=== PATIENT | male | born 1945 | race Hispanic/Latino ===

== ENCOUNTER 2019-02-02 01:32 | Inpatient (IN) | payer MEDICARE, OTHER ==
[2019-02-02 03:19] VITALS: BMI 22.8
[2019-02-02] MEDS ORDERED: Dextrose 5%/0.45% NS 1,000 ML IV SCH (03:30)
[2019-02-02] MEDS ORDERED: Heparin25000 units/250ml 1/2NS 25,000 UNITS/250 ML BAG IV ONE ×2 (04:04→07:45)
[2019-02-02 06:31] LABS: BASO # 0.1 K/uL (0.0-0.2); BASO % 0.4 % (0.0-2.0); EOS # 0.1 K/uL (0.0-0.7); EOS % 1.1 % (0.0-4.0); HEMOGLOBIN 9.1 g/dL (12.0-18.0); LYMPH # 1.3 K/uL (1.0-4.3); LYMPH % 10.2 % (20.0-40.0); MEAN CELL VOLUME 84.4 fL (80.0-94.0); MEAN CORPUSCULAR HEMOGLOBIN 26.8 pg (27.0-31.0); MEAN CORPUSCULAR HGB CONC 31.8 g/dL (33.0-37.0); MEAN PLATELET VOLUME 8.6 fL (7.2-11.7); MONO # 0.9 K/uL (0.0-0.8); MONO % 6.9 % (0.0-10.0); NEUT # 10.3 K/uL (1.8-7.0); NEUT % 81.4 % (50.0-75.0); NRBC % 0.1 % (0.0-2.0); RBC 3.4 Mil/uL (4.40-5.90); RED CELL DISTRIBUTION WIDTH 20.8 % (11.5-14.5); WHITE BLOOD COUNT 12.7 K/uL (4.8-10.8)
[2019-02-02 06:37] LABS: INR 1.8; PROTHROMBIN TIME 19.3 SECONDS (9.7-12.2)
[2019-02-02 06:41] LABS: ALBUMIN 3.3 g/dL (3.5-5.0); ALT/SGPT 33 U/L (21-72); AST/SGOT 27 U/L (17-59); BLOOD UREA NITROGEN 19 mg/dL (9-20); CALCIUM 8.4 mg/dl (8.6-10.4); GFR NON-AFRICAN AMERICAN > 60
--- NOTE | 2019-02-02 06:41 | CP.PCM.HP ---
<Brittney Little - Last Filed: 02/02/19 08:05> History of Present Illness - History of Present Illness History of Present Illness: Hepatobiliary surgery - Dr. Fernandez 73 yo M w/ pmh of HTN, HL, COPD, GERD, CAD, Cardiomyopathy, Chronic AFib on Coumadin, CABG, AICD/PM, Alcoholic Liver Cirrhosis, transferred from [facility] for possible hepatic shunt. Patient was recently admitted to [facility] for decompensated liver failure and acute toxic metabolic encephalopathy w/ septic shock with concerns for SBP. He was treated there in the ICU and underwent multiple paracentesis with no growth. He improved clinically and was transferred to the telemetry floor. While at [facility] pt was reportedly seen by GI and Cardiology who evauated patient and deemed him not a candidate for TIPs procedure. Hepatobiliary surgeon was contacted and decision made to transfer patient to [facility] for possible pauline-systemic shunt. Patient seen and examined on the floor. He currently complains of abdominal distension and mild pain, otherwise denies any complaints at this time. No SOB/Chest pain, Nausea/Vomiting, Fevers/Chills. PMH: HTN, HL, Asthma, COPD, GERD, Cardiomyopathy, CAD, Chronic AFib on Coumadin, Alcoholic cirrhosis, Hypothyroid, PSH: CABG 2014, Open Cholecystectomy, Umbilical hernia repair, AICD/Pacemaker 2014, Cardiac cath 09/2018 Social:Hx of ETOH and Tobacco use Meds as per chart NKDA Present on Admission - Present on Admission Any Indicators Present on Admission: No Review of Systems - Review of Systems All systems: reviewed and no additional remarkable complaints except (as per HPI) Past Patient History - Infectious Disease Hx of Infectious Diseases: None Meds Allergies/Adverse Reactions: Allergies Allergy/AdvReac Type Severity Reaction Status Date / Time No Known Allergies Allergy Verified 02/02/19 03:19 Physical Exam - Constitutional Appears: No Acute Distress - Head Exam Head Exam: ATRAUMATIC, NORMAL INSPECTION, NORMOCEPHALIC - Eye Exam Eye Exam: Normal appearance - ENT Exam ENT Exam: Mucous Membranes Dry - Respiratory Exam Respiratory Exam: NORMAL BREATHING PATTERN. absent: Respiratory Distress - Cardiovascular Exam Cardiovascular Exam: REGULAR RHYTHM - GI/Abdominal Exam GI & Abdominal Exam: Distended, Soft, Tenderness (mild). absent: Firm, Guarding, Hernia, Rebound, Rigid - Neurological Exam Neurological exam: Alert, Oriented x3 - Psychiatric Exam Psychiatric exam: Normal Affect, Normal Mood - Skin Skin Exam: Dry, Intact Results - Vital Signs Recent Vital Signs: Last Vital Signs Temp 97.5 F L 02/02/19 01:35 Pulse 61 02/02/19 01:35 Resp 20 02/02/19 01:35 BP 110/53 L 02/02/19 01:35 Pulse Ox 97 02/02/19 01:35 - Labs Result Diagrams: 02/02/19 06:25 02/02/19 06:25 Assessment & Plan - Assessment and Plan (Free Text) Assessment: 73 yo M w/ alcoholic liver cirrhosis, admitted for possible shunt -admit to [facility] surgeon Dr. Fernandez -Resume home medications except for Warfarin -Resume Heparin drip -F/U Labs -Further reccs as per Dr. Patel PGY4 <Haroldo Fernandez - Last Filed: 02/08/19 10:14> Results - Vital Signs Recent Vital Signs: Last Vital Signs Temp 97.5 F L 02/04/19 07:00 Pulse 63 02/04/19 11:32 Resp 18 02/04/19 07:00 BP 112/61 02/04/19 11:18 Pulse Ox 99 02/04/19 11:32 - Labs Result Diagrams: 02/08/19 07:59 02/07/19 07:55 Labs: Laboratory Results - last 24 hr 02/03/19 02/04/19 02/04/19 15:48 06:22 06:22 WBC 12.9 H RBC 3.49 L Hgb 9.2 L Hct 29.7 L MCV 85.0 MCH 26.3 L MCHC 31.0 L RDW 21.0 H Plt Count 220 MPV 8.7 Neut % (Auto) 80.0 H Lymph % (Auto) 9.9 L Norton % (Auto) 7.6 Eos % (Auto) 1.7 Baso % (Auto) 0.8 Neut # (Auto) 10.3 H Lymph # (Auto) 1.3 Norton # (Auto) 1.0 H Eos # (Auto) 0.2 Baso # (Auto) 0.1 Neutrophils % (Manual) 86 H Band Neutrophils % 1 Lymphocytes % (Manual) 6 L Monocytes % (Manual) 4 Eosinophils % (Manual) 3 Platelet Estimate Normal Hypochromasia (manual) Slight Anisocytosis (manual) Moderate PT 13.2 H D INR 1.2 D APTT 46 H D 51 H D Sodium Potassium Chloride Carbon Dioxide Anion Gap BUN Creatinine Est GFR ( Amer) Est GFR (Non-Af Amer) Random Glucose Calcium Phosphorus Magnesium Total Bilirubin AST ALT Alkaline Phosphatase Total Protein Albumin Globulin Albumin/Globulin Ratio 02/04/19 06:22 WBC RBC Hgb Hct MCV MCH MCHC RDW Plt Count MPV Neut % (Auto) Lymph % (Auto) Norton % (Auto) Eos % (Auto) Baso % (Auto) Neut # (Auto) Lymph # (Auto) Norton # (Auto) Eos # (Auto) Baso # (Auto) Neutrophils % (Manual) Band Neutrophils % Lymphocytes % (Manual) Monocytes % (Manual) Eosinophils % (Manual) Platelet Estimate Hypochromasia (manual) Anisocytosis (manual) PT INR APTT Sodium 132 Potassium 5.0 Chloride 93 L Carbon Dioxide 37 H Anion Gap 8 L BUN 25 H Creatinine 0.9 Est GFR ( Amer) > 60 Est GFR (Non-Af Amer) > 60 Random Glucose 74 L Calcium 8.8 Phosphorus 3.6 Magnesium 2.2 Total Bilirubin 0.7 AST 37 ALT 47 Alkaline Phosphatase 63 Total Protein 5.7 L Albumin 3.6 Globulin 2.1 L Albumin/Globulin Ratio 1.7 Assessment & Plan - Assessment and Plan (Free Text) Assessment: All medical record entries made by the resident were at my direction. I have reviewed the chart and agree that the record accurately reflects my personal performance of the history, physical exam, medical decision making. I have also personally examined the patient, reviewed, and agree the resident note. 73 year old male Laennec's cirrhosis with intractable ascites and COPD. Needs repeat echo and abdominal CT to determine if TIPSS safe and feasible. If not, will place peritoneal-venous shunt
[2019-02-02] MEDS: Levothyroxine 50 MCG TAB PO SCH (07:32)
[2019-02-02] MEDS ORDERED: Heparin25000 units/250ml 1/2NS 25,000 UNITS/250 ML BAG IV PRN (08:21)
[2019-02-02] MEDS: Albuterol 0.083% Inhal Sol (2.5 mg/3 mL) UD IH SCH ×5 (08:30→20:47)
--- NOTE | 2019-02-02 12:40 | RAD ---
Date of service: 02/02/2019 PROCEDURE: CHEST RADIOGRAPH, 1 VIEW HISTORY: preop COMPARISON: None available. FINDINGS: LUNGS: Clear. PLEURA: No pneumothorax or pleural fluid seen. CARDIOVASCULAR: No aortic atherosclerotic calcification present. Normal heart size. Status post mitral and aortic valve replacement. Sternotomy wires. AICD. Right IJ multi lumen central venous catheter. OSSEOUS STRUCTURES: No significant abnormalities. VISUALIZED UPPER ABDOMEN: Normal. OTHER FINDINGS: None. IMPRESSION: No acute infiltrate.
[2019-02-02] MEDS: PrednisoLONE 6 MG/2 ML SYR PO SCH ×2 (14:22→15:06)
--- NOTE | 2019-02-02 17:03 | CARD ---
APPROVED REPORT Date of service: 02/02/2019 EXAM: Two-dimensional and M-mode echocardiogram with Doppler and color Doppler. INDICATION Atrial Fibrillation Cardiac Disease: CAD COPD Pre-op Surgery/Intervention Status/Post Aortic Valve Replacement: Status/Post Mitral Valve Replacement: CABG: RISK FACTORS Hypertension Hyperlipidemia 2D DIMENSIONS IVSd0.9 (0.7-1.1cm)LVDd4.2 (3.9-5.9cm) LVOT Diameter2.0 (1.8-2.4cm)PWd1.0 (0.7-1.1cm) LVDs3.5 (2.5-4.0cm)FS (%) 22.0 % LVEF (%)45.0 (>50%)LVEF (Perry's)44.39 % IVC0.00 cm M-Mode DIMENSIONS RVDd1.80 (2.1-3.2cm)Left Atrium (MM)4.90 (2.5-4.0cm) IVSd0.49 (0.7-1.1cm)Aortic Root2.47 (2.2-3.7cm) LVDd6.64 (4.0-5.6cm)Aortic Cusp Exc.1.29 (1.5-2.0cm) PWd0.59 (0.7-1.1cm)FS (%) 24 % LVDs5.05 (2.0-3.8cm)LVEF (%)47 (>50%) Aortic Valve AoV Peak Tyejryre724.4cm/sAoV VTI47.3cmAO Peak GR.21mmHg LVOT Peak Qqesqkim264.3cm/sLVOT VTI43.16cmAO Mean GR.10mmHg NEHAL (VMAX)2.85mv4ZBB (VTI)2.92cm2 Mitral Valve MV E Sooaqfas549.1cm/sMV A Vxvstgfg61.2cm/sMV XOB427fv E/A ratio3.0MVA (PHT)1.70cm2 TDI Lateral E' Peak V10.22cm/sMedial E' Peak V9.58cm/sE/Lateral E'19.5 E/Medial E'20.8 Tricuspid Valve TR Peak Cpfswgxd959jr/sTR Peak Gr.91wqOvXUGH35frJn LEFT VENTRICLE The left ventricle is normal size. There is normal left ventricular wall thickness. Left ventricle systolic function is borderline. The Ejection Fraction is 45-50%. There is mild global hypokinesis of the left ventricle. There is a flattened septum consistent with right ventricle volume overload. The left ventricular diastolic function is normal. RIGHT VENTRICLE The right ventricle is normal size. There is normal right ventricular wall thickness. Systolic function is mildly reduced. Right Ventricular septal motion is paradoxical. There is a pacemaker lead in the right ventricle. ATRIA The left atrium is mildly dilated. The right atrium size is normal. The interatrial septum is intact with no evidence for an atrial septal defect. AORTIC VALVE No aortic regurgitation is present. There is no aortic valvular stenosis. There are normal prosthetic aortic valve gradients. Aortic valve opening cannot be assessed due to imaging artifacts from the prosthesis. MITRAL VALVE Calculated prosthetic mitral valve area is 1.72 cm2. There is no mitral valve regurgitation noted. The prosthetic mitral valve is not well visualized due to imaging artifacts from the prosthesis. TRICUSPID VALVE The tricuspid valve is normal in structure. There is mild tricuspid regurgitation. Right ventricular systolic pressure is estimated at 40-50 mmHg. There is mild-moderate pulmonary hypertension. PULMONIC VALVE The pulmonic valve is not well visualized. There is no pulmonic valvular regurgitation. GREAT VESSELS The aortic root is normal in size. PERICARDIAL EFFUSION There is no significant pericardial effusion. <Conclusion> Left ventricle systolic function is borderline. The Ejection Fraction is 45-50%. There are normal prosthetic aortic valve gradients. Aortic valve opening cannot be assessed due to imaging artifacts from the prosthesis. No aortic regurgitation is present. The prosthetic mitral valve is not well visualized due to imaging artifacts from the prosthesis. There is no mitral valve regurgitation noted. There is mild tricuspid regurgitation. There is a pacemaker lead in the right ventricle. There is mild-moderate pulmonary hypertension. There is no pulmonic valvular regurgitation.
[2019-02-03] MEDS: Albumin Human 25% (12.5 gm/50 ml) IV SCH ×4 (00:05→17:22)
[2019-02-03] MEDS: Albuterol 0.083% Inhal Sol (2.5 mg/3 mL) UD IH SCH ×7 (00:11→23:39)
[2019-02-03] MEDS: Levothyroxine 50 MCG TAB PO SCH (06:16)
--- NOTE | 2019-02-03 08:19 | CP.PCM.PN ---
<Nii Centeno - Last Filed: 02/03/19 08:19> Subjective - Date & Time of Evaluation Date of Evaluation: 02/03/19 Time of Evaluation: 08:17 - Subjective Subjective: SURGERY NOTE FOR DR. WHIPPLE 73M seen and examined at bedside. Patient states he is pain is improved, denies nausea or vomiting. Tolerating diet. Objective - Vital Signs/Intake and Output Vital Signs (last 24 hours): Temp Pulse Resp BP Pulse Ox 97.3 F L 66 20 116/60 96 02/02/19 23:20 02/03/19 08:00 02/02/19 23:20 02/02/19 23:20 02/02/19 23:20 - Medications Medications: Current Medications Albumin Human (Albumin Human 25% (12.5 Gm/50 Ml)) 25 gm IV Q6 [facility] Stop: 02/03/19 18:01 Last Admin: 02/03/19 05:45 Dose: 25 gm Albuterol Sulfate (Albuterol 0.083% Inhal Otilia (2.5 Mg/3 Ml) Ud) 2.5 mg IH RQ4 [facility] Last Admin: 02/03/19 03:19 Dose: 2.5 mg Furosemide (Lasix) 80 mg PO DAILY [facility] Heparin Sodium/Sodium Chloride (Heparin 02810 Units/250ml 1/2 Normal Saline) 25,000 units in 250 mls @ 8.165 mls/hr IV .Q24H PRN; Protocol PRN Reason: ADJUST RATE PER PROTOCOL Last Admin: 02/02/19 09:36 Dose: 12 units/kg/hr, 8.165 mls/hr Lactulose (Enulose) 30 gm PO TID [facility] Last Admin: 02/02/19 17:33 Dose: 30 gm Levothyroxine Sodium (Synthroid) 50 mcg PO DAILY@0630 [facility] Last Admin: 02/03/19 06:16 Dose: 50 mcg Midodrine (Proamatine) 2.5 mg PO Q8 PRN PRN Reason: SBP 90 or less Prednisolone (Prednisolone) 10 mg PO DAILY [facility] Rifaximin (Xifaxan) 550 mg PO Q8 [facility]; Protocol Last Admin: 02/03/19 06:54 Dose: 550 mg Spironolactone (Aldactone) 50 mg PO QD7 [facility] Tramadol HCl (Ultram) 50 mg PO Q6 PRN PRN Reason: pain Last Admin: 02/03/19 05:46 Dose: 50 mg Zolpidem Tartrate (Ambien) 5 mg PO HS PRN PRN Reason: Insomnia Last Admin: 02/03/19 00:25 Dose: 5 mg - Labs Labs: 02/02/19 06:25 02/02/19 06:25 PT 19.3 SECONDS (9.7-12.2) H 02/02/19 06:25 INR 1.8 02/02/19 06:25 APTT 49 SECONDS (21-34) H 02/02/19 21:26 - Constitutional Appears: Non-toxic, No Acute Distress - Respiratory Exam Respiratory Exam: Clear to Ausculation Bilateral, NORMAL BREATHING PATTERN - Cardiovascular Exam Cardiovascular Exam: REGULAR RHYTHM, +S1, +S2 - GI/Abdominal Exam GI & Abdominal Exam: Distended (dull to percussion), Soft, Tenderness. absent: Firm, Guarding, Rigid, Rebound - Extremities Exam Extremities Exam: absent: Pedal Edema, Tenderness - Neurological Exam Neurological Exam: Alert, Awake - Skin Skin Exam: Dry, Intact, Normal Color, Warm Assessment and Plan - Assessment and Plan (Free Text) Assessment: 73M with alcohol liver cirrhosis Plan: - hep drip - reg diet - Liver protocol CT Further recs discuss with Dr. Jim Centeno, PGY3 <Haroldo Whipple - Last Filed: 02/08/19 10:20> Objective - Vital Signs/Intake and Output Vital Signs (last 24 hours): Temp Pulse Resp BP Pulse Ox 97.5 F L 63 18 112/61 99 02/04/19 07:00 02/04/19 11:32 02/04/19 07:00 02/04/19 11:18 02/04/19 11:32 Intake and Output: 02/04/19 02/04/19 06:59 18:59 Intake Total 376 Balance 376 - Medications Medications: Current Medications Albuterol Sulfate (Albuterol 0.083% Inhal Otilia (2.5 Mg/3 Ml) Ud) 2.5 mg IH RQ4 [facility] Last Admin: 02/04/19 12:25 Dose: 2.5 mg Furosemide (Lasix) 80 mg PO DAILY [facility] Last Admin: 02/04/19 11:18 Dose: 80 mg Heparin Sodium/Sodium Chloride (Heparin 10060 Units/250ml 1/2 Normal Saline) 25,000 units in 250 mls @ 9.525 mls/hr IV .Q24H PRN; Protocol PRN Reason: ADJUST RATE PER PROTOCOL Last Admin: 02/03/19 18:26 Dose: 14 units/kg/hr, 9.525 mls/hr Lactulose (Enulose) 30 gm PO TID [facility] Last Admin: 02/04/19 14:36 Dose: 30 gm Levothyroxine Sodium (Synthroid) 50 mcg PO DAILY@0630 [facility] Last Admin: 02/04/19 06:25 Dose: 50 mcg Midodrine (Proamatine) 2.5 mg PO Q8 PRN PRN Reason: SBP 90 or less Prednisolone (Prednisolone) 10 mg PO DAILY [facility] Last Admin: 02/04/19 11:17 Dose: 10 mg Rifaximin (Xifaxan) 550 mg PO Q8 [facility]; Protocol Last Admin: 02/04/19 14:37 Dose: 550 mg Spironolactone (Aldactone) 50 mg PO QD7 [facility] Tramadol HCl (Ultram) 50 mg PO Q6 PRN PRN Reason: pain Last Admin: 02/03/19 05:46 Dose: 50 mg Zolpidem Tartrate (Ambien) 5 mg PO HS PRN PRN Reason: Insomnia Last Admin: 02/03/19 00:25 Dose: 5 mg - Labs Labs: 02/04/19 06:22 02/04/19 06:22 PT 13.2 SECONDS (9.7-12.2) H D 02/04/19 06:22 INR 1.2 D 02/04/19 06:22 APTT 51 SECONDS (21-34) H D 02/04/19 06:22 Assessment and Plan - Assessment and Plan (Free Text) Plan: All medical record entries made by the resident were at my direction and personally directed by me. I have reviewed the chart and agree that the record accurately reflects my personal performance of the history, physical exam, medical decision making. I have also personally directed, reviewed, and agree with the resident note. Awaits multiphase CT, lacix 80 mg/spironolactone 50 mg daily. Echo done, will have cardiology see patient. Will need to determine whether he will tolerate a TIPS
[2019-02-03] MEDS: Heparin25000 units/250ml 1/2NS 25,000 UNITS/250 ML BAG IV PRN ×2 (09:57→18:26)
[2019-02-03] MEDS: PrednisoLONE 6 MG/2 ML SYR PO SCH (09:57)
[2019-02-04] MEDS: Albuterol 0.083% Inhal Sol (2.5 mg/3 mL) UD IH SCH ×6 (03:13→23:41)
[2019-02-04] MEDS: Levothyroxine 50 MCG TAB PO SCH (06:25)
[2019-02-04 06:44] LABS: INR 1.2; PROTHROMBIN TIME 13.2 SECONDS (9.7-12.2)
[2019-02-04 06:46] LABS: ALB/GLOB RATIO 1.7 (1.0-2.1); ALBUMIN 3.6 g/dL (3.5-5.0); ALT/SGPT 47 U/L (21-72); AST/SGOT 37 U/L (17-59); BASO # 0.1 K/uL (0.0-0.2); BASO % 0.8 % (0.0-2.0); BLOOD UREA NITROGEN 25 mg/dL (9-20); CALCIUM 8.8 mg/dl (8.6-10.4); EOS # 0.2 K/uL (0.0-0.7); EOS % 1.7 % (0.0-4.0); GFR NON-AFRICAN AMERICAN > 60; HEMOGLOBIN 9.2 g/dL (12.0-18.0); LYMPH # 1.3 K/uL (1.0-4.3); LYMPH % 9.9 % (20.0-40.0); MEAN CORPUSCULAR HEMOGLOBIN 26.3 pg (27.0-31.0); MEAN PLATELET VOLUME 8.7 fL (7.2-11.7); MONO % 7.6 % (0.0-10.0); NEUT # 10.3 K/uL (1.8-7.0); PLATELET COUNT 220 K/uL (130-400); RBC 3.49 Mil/uL (4.40-5.90); WHITE BLOOD COUNT 12.9 K/uL (4.8-10.8)
[2019-02-04] MEDS ORDERED: Iohexol 350mg/ml 100 ML ONE (08:39)
[2019-02-04 09:57] LABS: ANISOCYTOSIS MODERATE; BANDS 1 % (0-2); EOSINOPHIL 3 % (0-4); HYPOCHROMIC SLIGHT; LYMPHOCYTE 6 % (20-40); MONOCYTE 4 % (0-10); NEUTROPHIL 86 % (50-75); PLATELET ESTIMATE NORMAL (NORMAL); TOTAL CELLS COUNTED 100
[2019-02-04] MEDS ORDERED: Pneumococcal 23-Valent Vaccine IM ONE (10:00)
[2019-02-04] MEDS ORDERED: Influenza Vaccine 60 mcg/0.5 mL SYR (4YR UP) IM ONE (10:00)
--- NOTE | 2019-02-04 10:35 | CP.PCM.PN ---
<Brittney Little - Last Filed: 02/04/19 10:35> Subjective - Date & Time of Evaluation Date of Evaluation: 02/04/19 Time of Evaluation: 10:34 - Subjective Subjective: Pt seen and examined. No acute events overnight. Pt resting comfortably, still complaining of abdominal pain and just overall not feeling well. He denies any nausea or vomiting, fevers or chills, SOB or chest pains. Objective - Vital Signs/Intake and Output Vital Signs (last 24 hours): Temp Pulse Resp BP Pulse Ox 97.5 F L 63 18 112/61 99 02/04/19 07:00 02/04/19 07:00 02/04/19 07:00 02/04/19 07:00 02/04/19 07:00 Intake and Output: 02/04/19 02/04/19 06:59 18:59 Intake Total 376 Balance 376 - Medications Medications: Current Medications Albuterol Sulfate (Albuterol 0.083% Inhal Otilia (2.5 Mg/3 Ml) Ud) 2.5 mg IH RQ4 [facility] Last Admin: 02/04/19 08:29 Dose: 2.5 mg Furosemide (Lasix) 80 mg PO DAILY [facility] Last Admin: 02/03/19 09:06 Dose: 80 mg Heparin Sodium/Sodium Chloride (Heparin 62894 Units/250ml 1/2 Normal Saline) 25,000 units in 250 mls @ 9.525 mls/hr IV .Q24H PRN; Protocol PRN Reason: ADJUST RATE PER PROTOCOL Last Admin: 02/03/19 18:26 Dose: 14 units/kg/hr, 9.525 mls/hr Lactulose (Enulose) 30 gm PO TID [facility] Last Admin: 02/03/19 17:21 Dose: Not Given Levothyroxine Sodium (Synthroid) 50 mcg PO DAILY@0630 [facility] Last Admin: 02/04/19 06:25 Dose: 50 mcg Midodrine (Proamatine) 2.5 mg PO Q8 PRN PRN Reason: SBP 90 or less Prednisolone (Prednisolone) 10 mg PO DAILY [facility] Last Admin: 02/03/19 09:57 Dose: 10 mg Rifaximin (Xifaxan) 550 mg PO Q8 [facility]; Protocol Last Admin: 02/04/19 06:24 Dose: 550 mg Spironolactone (Aldactone) 50 mg PO QD7 [facility] Tramadol HCl (Ultram) 50 mg PO Q6 PRN PRN Reason: pain Last Admin: 02/03/19 05:46 Dose: 50 mg Zolpidem Tartrate (Ambien) 5 mg PO HS PRN PRN Reason: Insomnia Last Admin: 02/03/19 00:25 Dose: 5 mg - Labs Labs: 02/04/19 06:22 02/04/19 06:22 PT 13.2 SECONDS (9.7-12.2) H D 02/04/19 06:22 INR 1.2 D 02/04/19 06:22 APTT 51 SECONDS (21-34) H D 02/04/19 06:22 - Constitutional Appears: No Acute Distress - Head Exam Head Exam: ATRAUMATIC, NORMAL INSPECTION, NORMOCEPHALIC - Respiratory Exam Respiratory Exam: NORMAL BREATHING PATTERN. absent: Respiratory Distress - GI/Abdominal Exam GI & Abdominal Exam: Distended, Soft. absent: Guarding, Rigid, Tenderness, Rebound - Neurological Exam Neurological Exam: Alert, Oriented x3 - Psychiatric Exam Psychiatric exam: Normal Affect, Normal Mood - Skin Skin Exam: Dry, Intact Assessment and Plan - Assessment and Plan (Free Text) Assessment: 73M with alcohol liver cirrhosis Plan: - Cont hep drip - Cont reg diet - F/U Liver protocol CT Further recs as per Dr. Jim Little PGY4 <Haroldo Fernandez - Last Filed: 02/08/19 10:25> Objective - Vital Signs/Intake and Output Vital Signs (last 24 hours): Temp Pulse Resp BP Pulse Ox 97.5 F L 63 18 112/61 99 02/04/19 07:00 02/04/19 11:32 02/04/19 07:00 02/04/19 11:18 02/04/19 11:32 Intake and Output: 02/04/19 02/04/19 06:59 18:59 Intake Total 376 Balance 376 - Medications Medications: Current Medications Albuterol Sulfate (Albuterol 0.083% Inhal Otilia (2.5 Mg/3 Ml) Ud) 2.5 mg IH RQ4 [facility] Last Admin: 02/04/19 12:25 Dose: 2.5 mg Furosemide (Lasix) 80 mg PO DAILY [facility] Last Admin: 02/04/19 11:18 Dose: 80 mg Heparin Sodium/Sodium Chloride (Heparin 83210 Units/250ml 1/2 Normal Saline) 25,000 units in 250 mls @ 9.525 mls/hr IV .Q24H PRN; Protocol PRN Reason: ADJUST RATE PER PROTOCOL Last Admin: 02/03/19 18:26 Dose: 14 units/kg/hr, 9.525 mls/hr Lactulose (Enulose) 30 gm PO TID [facility] Last Admin: 02/04/19 14:36 Dose: 30 gm Levothyroxine Sodium (Synthroid) 50 mcg PO DAILY@0630 [facility] Last Admin: 02/04/19 06:25 Dose: 50 mcg Midodrine (Proamatine) 2.5 mg PO Q8 PRN PRN Reason: SBP 90 or less Prednisolone (Prednisolone) 10 mg PO DAILY [facility] Last Admin: 02/04/19 11:17 Dose: 10 mg Rifaximin (Xifaxan) 550 mg PO Q8 [facility]; Protocol Last Admin: 02/04/19 14:37 Dose: 550 mg Spironolactone (Aldactone) 50 mg PO QD7 [facility] Tramadol HCl (Ultram) 50 mg PO Q6 PRN PRN Reason: pain Last Admin: 02/03/19 05:46 Dose: 50 mg Zolpidem Tartrate (Ambien) 5 mg PO HS PRN PRN Reason: Insomnia Last Admin: 02/03/19 00:25 Dose: 5 mg - Labs Labs: 02/04/19 06:22 02/04/19 06:22 PT 13.2 SECONDS (9.7-12.2) H D 02/04/19 06:22 INR 1.2 D 02/04/19 06:22 APTT 51 SECONDS (21-34) H D 02/04/19 06:22 Assessment and Plan - Assessment and Plan (Free Text) Assessment: All medical record entries made by the resident were at my direction and personally directed by me. I have reviewed the chart and agree that the record accurately reflects my personal performance of the history, physical exam, medical decision making. I have also personally directed, reviewed, and agree with the resident note. Pateitn with intractable ascites on diuretics. Being evaluated for TIPSS vs peritoneal venous shunt. Echo ordered. Will have cardiology see patient. Patient on prednisone, will wean. Increase Lacix to 80mg daily, will start spironolactone 50 mg daily. Continue lactulose/xifaxan
[2019-02-04] MEDS: PrednisoLONE 6 MG/2 ML SYR PO SCH (11:17)
--- NOTE | 2019-02-04 18:42 | CT ---
Date of service: 02/04/2019 PROCEDURE: CT Abdomen and Pelvis with and without intravenous contrast HISTORY: cirrhosis, r/o HCC or portal vein thrombosis COMPARISON: None. TECHNIQUE: Axial images of the abdomen were obtained in the pre contrast, portal venous and delayed phases of enhancement. Coronal and sagittal reformats were generated. Contrast dose: 100 mL of Visipaque 320 intravenously. Radiation dose: Total exam DLP = 2158.24 mGy-cm. This CT exam was performed using one or more of the following dose reduction techniques: Automated exposure control, adjustment of the mA and/or kV according to patient size, and/or use of iterative reconstruction technique. FINDINGS: LOWER THORAX: There is 6 millimeter noncalcified nodule at the right lung lower lobe. There is a trace right pleural effusion. The heart is mildly to moderately enlarged. Diffuse thickening of the distal esophagus is noted. LIVER: There is low-attenuation on enhancing lesion at the lower portion of the right liver lobe measures 1.3 centimeter likely benign. No evidence of arterial enhancing mass lesion in the liver to suggest hepatocellular carcinoma. Advanced cirrhotic changes are noted. The portal vein is patent. GALLBLADDER AND BILE DUCTS: Status post cholecystectomy. PANCREAS: Unremarkable. No gross lesion or ductal dilatation. SPLEEN: Splenomegaly is noted. ADRENALS: Unremarkable. No mass. KIDNEYS AND URETERS: Unremarkable. No hydronephrosis. No solid mass. VASCULATURE: Mild aneurysmal dilatation of the distal abdominal aorta measures up to 3.4 centimeter is noted just above the bifurcation. Diffuse atherosclerotic calcifications seen. BOWEL: There is suspicious for pneumatosis at the cecum and ascending colon. [id number] constipation is noted. There is diffuse small bowel wall thickening likely edema due to presents of ascites. No evidence of high-grade bowel obstruction. Colonic diverticulosis are noted. APPENDIX: No evidence of appendicitis. PERITONEUM: Large amount of ascites in the abdomen and pelvis. No evidence of free air. LYMPH NODES: Unremarkable. No enlarged lymph nodes. BLADDER: Unremarkable. REPRODUCTIVE: The prostate and seminal vesicles are unremarkable. BONES: No acute fracture. OTHER FINDINGS: None. IMPRESSION: Advanced cirrhosis with findings suggestive of portal hypertension including scar large ascites splenomegaly and portal systemic collaterals in the upper abdomen. No definite evidence of arterial enhancing mass lesion in the liver to suggest hepatocellular carcinoma. Suspicious for pneumatosis in the cecum and ascending colon. Correlate clinically for possible bowel ischemia. Additional findings as discussed above.
[2019-02-04] MEDS: Heparin25000 units/250ml 1/2NS 25,000 UNITS/250 ML BAG IV PRN (21:39)
--- NOTE | 2019-02-05 | CP.PCM.CON ---
History of Present Illness - History of Present Illness History of Present Illness: 73 M with hx of Cirrhosis consulted for cardiac assessment prior to TIPS will evaluate for Pulmonary HTN Past Patient History - Infectious Disease Hx of Infectious Diseases: None - Past Medical History & Family History Past Medical History?: Yes - Past Social History Smoking Status: Never Smoked - CARDIAC Hx Hypertension: Yes - PULMONARY Hx Chronic Obstructive Pulmonary Disease (COPD): Yes - NEUROLOGICAL Hx Neurological Disorder: No - HEENT Hx HEENT Problems: No - RENAL Hx Chronic Kidney Disease: No - HEMATOLOGICAL/ONCOLOGICAL Hx Blood Disorders: No - INTEGUMENTARY Hx Dermatological Problems: No - MUSCULOSKELETAL/RHEUMATOLOGICAL Hx Musculoskeletal Disorders: No Hx Falls: No - GASTROINTESTINAL Hx Gastrointestinal Disorders: Yes - GENITOURINARY/GYNECOLOGICAL Hx Genitourinary Disorders: No - PSYCHIATRIC Hx Psychophysiologic Disorder: No Meds Allergies/Adverse Reactions: Allergies Allergy/AdvReac Type Severity Reaction Status Date / Time No Known Allergies Allergy Verified 02/02/19 03:19 - Medications Medications: Current Medications Albuterol Sulfate (Albuterol 0.083% Inhal Otilia (2.5 Mg/3 Ml) Ud) 2.5 mg IH RQ4 [facility] Last Admin: 02/04/19 23:41 Dose: 2.5 mg Docusate Sodium (Colace) 100 mg PO BID [facility] Furosemide (Lasix) 80 mg PO DAILY [facility] Last Admin: 02/04/19 11:18 Dose: 80 mg Heparin Sodium/Sodium Chloride (Heparin 43900 Units/250ml 1/2 Normal Saline) 25,000 units in 250 mls @ 9.525 mls/hr IV .Q24H PRN; Protocol PRN Reason: ADJUST RATE PER PROTOCOL Last Admin: 02/04/19 21:39 Dose: 14 units/kg/hr, 9.525 mls/hr Lactulose (Enulose) 30 gm PO TID [facility] Last Admin: 02/04/19 18:35 Dose: 30 gm Levothyroxine Sodium (Synthroid) 50 mcg PO DAILY@0630 [facility] Last Admin: 02/04/19 06:25 Dose: 50 mcg Midodrine (Proamatine) 2.5 mg PO Q8 PRN PRN Reason: SBP 90 or less Prednisolone (Prednisolone) 10 mg PO DAILY [facility] Last Admin: 02/04/19 11:17 Dose: 10 mg Rifaximin (Xifaxan) 550 mg PO Q8 [facility]; Protocol Last Admin: 02/04/19 21:07 Dose: 550 mg Spironolactone (Aldactone) 50 mg PO QD7 [facility] Tramadol HCl (Ultram) 50 mg PO Q6 PRN PRN Reason: pain Last Admin: 02/03/19 05:46 Dose: 50 mg Zolpidem Tartrate (Ambien) 5 mg PO HS [facility] Last Admin: 02/04/19 21:07 Dose: 5 mg Results - Vital Signs Recent Vital Signs: Last Vital Signs Temp 97.7 F 02/04/19 15:40 Pulse 66 02/04/19 16:30 Resp 20 02/04/19 15:40 BP 92/61 L 02/04/19 15:40 Pulse Ox 100 02/04/19 15:40 - Labs Result Diagrams: 02/04/19 06:22 02/04/19 06:22 Labs: Laboratory Results - last 24 hr 02/04/19 02/04/19 02/04/19 06:22 06:22 06:22 WBC 12.9 H RBC 3.49 L Hgb 9.2 L Hct 29.7 L MCV 85.0 MCH 26.3 L MCHC 31.0 L RDW 21.0 H Plt Count 220 MPV 8.7 Neut % (Auto) 80.0 H Lymph % (Auto) 9.9 L [place] % (Auto) 7.6 Eos % (Auto) 1.7 Baso % (Auto) 0.8 Neut # (Auto) 10.3 H Lymph # (Auto) 1.3 [place] # (Auto) 1.0 H Eos # (Auto) 0.2 Baso # (Auto) 0.1 Neutrophils % (Manual) 86 H Band Neutrophils % 1 Lymphocytes % (Manual) 6 L Monocytes % (Manual) 4 Eosinophils % (Manual) 3 Platelet Estimate Normal Hypochromasia (manual) Slight Anisocytosis (manual) Moderate PT 13.2 H D INR 1.2 D APTT 51 H D Sodium 132 Potassium 5.0 Chloride 93 L Carbon Dioxide 37 H Anion Gap 8 L BUN 25 H Creatinine 0.9 Est GFR ( Amer) > 60 Est GFR (Non-Af Amer) > 60 Random Glucose 74 L Calcium 8.8 Phosphorus 3.6 Magnesium 2.2 Total Bilirubin 0.7 AST 37 ALT 47 Alkaline Phosphatase 63 Total Protein 5.7 L Albumin 3.6 Globulin 2.1 L Albumin/Globulin Ratio 1.7
--- NOTE | 2019-02-05 01:32 | CARD ---
APPROVED REPORT Date of service: 02/02/2019 EKG Measurement Heart [id number] <Conclusion> Atrial fibrillation with slow ventricular response Left anterior fascicular block T wave abnormality, consider anterolateral ischemia Abnormal ECG
[2019-02-05] MEDS: Albuterol 0.083% Inhal Sol (2.5 mg/3 mL) UD IH SCH ×6 (03:09→19:53)
[2019-02-05] MEDS: Levothyroxine 50 MCG TAB PO SCH (06:23)
[2019-02-05 07:18] LABS: HEMOGLOBIN 8.6 g/dL (12.0-18.0); MEAN CELL VOLUME 85.6 fL (80.0-94.0); MEAN CORPUSCULAR HEMOGLOBIN 26.6 pg (27.0-31.0); MEAN CORPUSCULAR HGB CONC 31.1 g/dL (33.0-37.0); MEAN PLATELET VOLUME 8.5 fL (7.2-11.7); RBC 3.24 Mil/uL (4.40-5.90); RED CELL DISTRIBUTION WIDTH 20.6 % (11.5-14.5); WHITE BLOOD COUNT 12.3 K/uL (4.8-10.8)
[2019-02-05] MEDS ORDERED: Lidocaine Hydrochloride 5 ML INJ ONE (10:06)
--- NOTE | 2019-02-05 10:46 | CP.PCM.PN ---
<Marleen Starks - Last Filed: 02/05/19 11:29> Subjective - Date & Time of Evaluation Date of Evaluation: 02/05/19 Time of Evaluation: 06:50 - Subjective Subjective: P Surgery Dr. Fernandez Pt seen and examined @bedside. No acute events overnight. Pt has no complaints. pt admits to minor abd discomfort 2/2 ascites. denies F/C, CP, SOB, N/V, D/C. tolerating diet. (+)BM/Flatus Objective - Vital Signs/Intake and Output Vital Signs (last 24 hours): Temp Pulse Resp BP Pulse Ox 97.8 F 66 20 104/59 L 94 L 02/05/19 07:30 02/05/19 07:30 02/05/19 07:30 02/05/19 07:30 02/05/19 07:30 Intake and Output: 02/05/19 02/05/19 06:59 18:59 Intake Total 630 Balance 630 - Medications Medications: Current Medications Albuterol Sulfate (Albuterol 0.083% Inhal Otilia (2.5 Mg/3 Ml) Ud) 2.5 mg IH RQ4 [facility] Last Admin: 02/05/19 08:31 Dose: Not Given Docusate Sodium (Colace) 100 mg PO BID [facility] Furosemide (Lasix) 80 mg PO DAILY [facility] Last Admin: 02/04/19 11:18 Dose: 80 mg Heparin Sodium/Sodium Chloride (Heparin 71518 Units/250ml 1/2 Normal Saline) 25,000 units in 250 mls @ 9.525 mls/hr IV .Q24H PRN; Protocol PRN Reason: ADJUST RATE PER PROTOCOL Last Admin: 02/04/19 21:39 Dose: 14 units/kg/hr, 9.525 mls/hr Lactulose (Enulose) 30 gm PO TID [facility] Last Admin: 02/04/19 18:35 Dose: 30 gm Levothyroxine Sodium (Synthroid) 50 mcg PO DAILY@0630 [facility] Last Admin: 02/05/19 06:23 Dose: 50 mcg Midodrine (Proamatine) 2.5 mg PO Q8 PRN PRN Reason: SBP 90 or less Prednisolone (Prednisolone) 10 mg PO DAILY [facility] Last Admin: 02/04/19 11:17 Dose: 10 mg Rifaximin (Xifaxan) 550 mg PO Q8 [facility]; Protocol Last Admin: 02/05/19 06:23 Dose: 550 mg Spironolactone (Aldactone) 50 mg PO QD7 [facility] Tramadol HCl (Ultram) 50 mg PO Q6 PRN PRN Reason: pain Last Admin: 02/05/19 06:24 Dose: 50 mg Zolpidem Tartrate (Ambien) 5 mg PO HS [facility] Last Admin: 02/04/19 21:07 Dose: 5 mg - Labs Labs: 02/05/19 07:04 02/04/19 06:22 PT 13.2 SECONDS (9.7-12.2) H D 02/04/19 06:22 INR 1.2 D 02/04/19 06:22 APTT 32 SECONDS (21-34) D 02/05/19 07:04 - Constitutional Appears: Non-toxic, No Acute Distress - Head Exam Head Exam: NORMAL INSPECTION - Eye Exam Eye Exam: Normal appearance - ENT Exam ENT Exam: Mucous Membranes Moist - Respiratory Exam Respiratory Exam: NORMAL BREATHING PATTERN. absent: Accessory Muscle Use, Respiratory Distress - Cardiovascular Exam Cardiovascular Exam: Irregular Rhythm. absent: Bradycardia, Tachycardia - GI/Abdominal Exam GI & Abdominal Exam: Distended (ascites), Soft, Tenderness (minimal) - Extremities Exam Extremities Exam: Normal Inspection - Neurological Exam Neurological Exam: Alert, Awake, Oriented x3 - Psychiatric Exam Psychiatric exam: Normal Affect, Normal Mood - Skin Skin Exam: Dry, Intact, Normal Color, Warm Assessment and Plan - Assessment and Plan (Free Text) Assessment: 73 y/o M w/ EtOH liver cirrhosis Plan: - plan for paracentesis today - Cont hep drip 2/2 Afib - Cont reg diet - Plan for OR tomorrow vs later this week for [facility]henry shunt placement - encourage OOb to chair/Amb Further recs as per Dr. Jim Starks DO PGY3 <Haroldo Fernandez - Last Filed: 02/08/19 10:35> Objective - Vital Signs/Intake and Output Vital Signs (last 24 hours): Temp Pulse Resp BP Pulse Ox 98.0 F 67 18 109/68 98 02/08/19 07:00 02/08/19 07:50 02/08/19 07:00 02/08/19 09:49 02/08/19 07:00 Intake and Output: 02/08/19 02/08/19 06:59 18:59 Intake Total 337.2 Balance 337.2 - Medications Medications: Current Medications Docusate Sodium (Colace) 100 mg PO BID [facility] Last Admin: 02/08/19 09:50 Dose: 100 mg Furosemide (Lasix) 80 mg PO DAILY [facility] Last Admin: 02/08/19 09:49 Dose: 80 mg Heparin Sodium/Sodium Chloride (Heparin 33168 Units/250ml 1/2 Normal Saline) 25,000 units in 250 mls @ 10.886 mls/hr IV .[id number] PRN; Protocol PRN Reason: ADJUST RATE PER PROTOCOL Last Admin: 02/08/19 00:30 Dose: 16 units/kg/hr, 10.886 mls/hr Lactulose (Enulose) 30 gm PO TID [facility] Last Admin: 02/08/19 09:50 Dose: Not Given Levothyroxine Sodium (Synthroid) 50 mcg PO DAILY@0630 [facility] Last Admin: 02/08/19 06:32 Dose: 50 mcg Midodrine (Proamatine) 2.5 mg PO Q8 PRN PRN Reason: SBP 90 or less Prednisolone (Prednisolone) 10 mg PO DAILY [facility] Last Admin: 02/08/19 09:51 Dose: 10 mg Rifaximin (Xifaxan) 550 mg PO Q12 [facility]; Protocol Last Admin: 02/08/19 09:51 Dose: 550 mg Spironolactone (Aldactone) 50 mg PO QD7 [facility] Last Admin: 02/08/19 09:49 Dose: 50 mg Tramadol HCl (Ultram) 50 mg PO Q6 PRN PRN Reason: pain Last Admin: 02/07/19 20:49 Dose: 50 mg Zolpidem Tartrate (Ambien) 5 mg PO HS [facility] Last Admin: 02/07/19 21:59 Dose: 5 mg - Labs Labs: 02/08/19 07:59 02/07/19 07:55 PT 11.1 SECONDS (9.7-12.2) 02/07/19 07:55 INR 1.0 02/07/19 07:55 APTT 51 SECONDS (21-34) H D 02/08/19 07:59 Assessment and Plan - Assessment and Plan (Free Text) Plan: All medical record entries made by the resident were at my direction. I have reviewed the chart and agree that the record accurately reflects my personal performance of the history, physical exam, medical decision making. I have also personally examined the patient, reviewed, and agree the resident note.
--- NOTE | 2019-02-05 10:57 | PCM.SURG1 ---
Surgeon's Initial Post Op Note - Surgeon's Notes Surgeon: Carmine Vargas MD Molding Plasterer: NONE Type of Anesthesia: Local Pre-Operative Diagnosis: Ascites, cirrhosis Operative Findings: US showed moderate amount of ascites Post-Operative Diagnosis: Ascites, cirrhosis Operation Performed: Paracentesis Specimen/Specimens Removed: 4.2 liters of yellow fluid Estimated Blood Loss: EBL {In ML}: 0 Blood Products Given: N/A Drains Used: No Drains Post-Op Condition: Fair Date of Surgery/Procedure: 02/05/19 Time of Surgery/Procedure: 10:50
[2019-02-05] MEDS: PrednisoLONE 6 MG/2 ML SYR PO SCH (11:10)
[2019-02-05 12:32] LABS: BODY FLUID TYPE PERITONEAL
[2019-02-05 12:58] LABS: BF GROSS APPEARANCE SL CLOUDY (CLEAR)
[2019-02-05 13:07] LABS: BODY FLUID MONO/MACROPHAGE 2 % (0-0); BODY FLUID TOTAL COUNT 100 (0-0)
--- NOTE | 2019-02-05 17:04 | CP.PCM.CON ---
History of Present Illness - History of Present Illness History of Present Illness: Patient is a73 years old male with PMHX of HTN, COPD, GERD,CAD, Cardiomyopathy, AFib, CABG, AICD, Alcoholic Liver Cirrhosis transferred from [facility] for TIPS procedure. He was admitted in [facility] for liver failure and toxic metabolic encephalopathy. He was treated at [place] and found not be a candidate for TIPS. A hepatobiliary surgeon was contacted and made the decision to transfer him to [facility] to be reevaluated. Patient admits to dry cough and SOB that is improving. He denies fevers, chills, chest pain. PMHX: CHF, COPD, GERD,CAD, Cardiomyopathy, AFib, CABG, AICD, Alcoholic Liver Cirrhosis Family HX: Unknown PSHX: CABG 2014, Cholecystectomy, Hernia Repair, AICD 2014, Cardiac Cath 2017 ALL: NKDA MEDS: As per chart SOCIAL: History of Tobacco use Review of Systems - Review of Systems All systems: reviewed and no additional remarkable complaints except (Complaining of abdominal distention and weakness) Past Patient History - Infectious Disease Hx of Infectious Diseases: None - Past Medical History & Family History Past Medical History?: Yes - Past Social History Smoking Status: Never Smoked - CARDIAC Hx Hypertension: Yes - PULMONARY Hx Chronic Obstructive Pulmonary Disease (COPD): Yes - NEUROLOGICAL Hx Neurological Disorder: No - HEENT Hx HEENT Problems: No - RENAL Hx Chronic Kidney Disease: No - HEMATOLOGICAL/ONCOLOGICAL Hx Blood Disorders: No - INTEGUMENTARY Hx Dermatological Problems: No - MUSCULOSKELETAL/RHEUMATOLOGICAL Hx Musculoskeletal Disorders: No Hx Falls: No - GASTROINTESTINAL Hx Gastrointestinal Disorders: Yes - GENITOURINARY/GYNECOLOGICAL Hx Genitourinary Disorders: No - PSYCHIATRIC Hx Psychophysiologic Disorder: No Meds Allergies/Adverse Reactions: Allergies Allergy/AdvReac Type Severity Reaction Status Date / Time No Known Allergies Allergy Verified 02/02/19 03:19 - Medications Medications: Current Medications Albuterol Sulfate (Albuterol 0.083% Inhal Otilia (2.5 Mg/3 Ml) Ud) 2.5 mg IH RQ4 [facility] Last Admin: 02/05/19 16:10 Dose: 2.5 mg Docusate Sodium (Colace) 100 mg PO BID [facility] Last Admin: 02/05/19 11:10 Dose: 100 mg Furosemide (Lasix) 80 mg PO DAILY [facility] Last Admin: 02/05/19 11:17 Dose: 80 mg Heparin Sodium/Sodium Chloride (Heparin 14053 Units/250ml 1/2 Normal Saline) 25,000 units in 250 mls @ 9.525 mls/hr IV .Q24H PRN; Protocol PRN Reason: ADJUST RATE PER PROTOCOL Last Admin: 02/04/19 21:39 Dose: 14 units/kg/hr, 9.525 mls/hr Lactulose (Enulose) 30 gm PO TID [facility] Last Admin: 02/05/19 13:31 Dose: 30 gm Levothyroxine Sodium (Synthroid) 50 mcg PO DAILY@0630 [facility] Last Admin: 02/05/19 06:23 Dose: 50 mcg Midodrine (Proamatine) 2.5 mg PO Q8 PRN PRN Reason: SBP 90 or less Prednisolone (Prednisolone) 10 mg PO DAILY [facility] Last Admin: 02/05/19 11:10 Dose: 10 mg Rifaximin (Xifaxan) 550 mg PO Q12 [facility]; Protocol Spironolactone (Aldactone) 50 mg PO QD7 [facility] Tramadol HCl (Ultram) 50 mg PO Q6 PRN PRN Reason: pain Last Admin: 02/05/19 06:24 Dose: 50 mg Zolpidem Tartrate (Ambien) 5 mg PO HS [facility] Last Admin: 02/04/19 21:07 Dose: 5 mg Physical Exam - Head Exam Head Exam: ATRAUMATIC, NORMOCEPHALIC - ENT Exam ENT Exam: Mucous Membranes Moist - Neck Exam Neck exam: Positive for: Normal Inspection - Respiratory Exam Respiratory Exam: Clear to Auscultation Bilateral - Cardiovascular Exam Cardiovascular Exam: REGULAR RHYTHM - GI/Abdominal Exam GI & Abdominal Exam: Distended - Extremities Exam Extremities exam: Positive for: pedal edema Results - Vital Signs Recent Vital Signs: Last Vital Signs Temp 97.8 F 02/05/19 07:30 Pulse 66 02/05/19 07:30 Resp 20 02/05/19 07:30 BP 116/65 02/05/19 11:17 Pulse Ox 94 L 02/05/19 07:30 - Labs Result Diagrams: 02/06/19 07:07 02/04/19 06:22 Labs: Laboratory Results - last 24 hr 02/05/19 02/05/19 02/05/19 07:04 07:04 12:31 WBC 12.3 H RBC 3.24 L Hgb 8.6 L Hct 27.7 L MCV 85.6 MCH 26.6 L MCHC 31.1 L RDW 20.6 H Plt Count 203 MPV 8.5 APTT 32 D Fluid Source Peritoneal Fluid Appearance Sl cloudy Fluid WBC 146.0 Fluid RBC 3690.0 H Fluid Tot Cell Count 100 H Fluid Neutrophils 57.0 H Fluid Lymphocytes 41.0 H Fld Monocyte/Macrophag 2 H Fluid Comment Assessment & Plan (1) Pulmonary arterial hypertension associated with portal hypertension Status: Acute Comment: Pulmonary hypertension in the majority of cases is due to the hyperdynamic circulatory status found in hepatic cirrhosis. Patient high risk for tips procedure. Case discussed with hepatobiliary surgeon. Paracentesis. Possible Brett shunt
[2019-02-06] MEDS: Albuterol 0.083% Inhal Sol (2.5 mg/3 mL) UD IH SCH ×6 (00:07→19:13)
[2019-02-06] MEDS: Levothyroxine 50 MCG TAB PO SCH (06:52)
[2019-02-06 07:23] LABS: MEAN CELL VOLUME 86.6 fL (80.0-94.0); MEAN CORPUSCULAR HEMOGLOBIN 27.1 pg (27.0-31.0); MEAN CORPUSCULAR HGB CONC 31.2 g/dL (33.0-37.0); MEAN PLATELET VOLUME 9.2 fL (7.2-11.7); RBC 3.32 Mil/uL (4.40-5.90); WHITE BLOOD COUNT 14.3 K/uL (4.8-10.8)
--- NOTE | 2019-02-06 07:54 | CP.PCM.PN ---
Subjective - Date & Time of Evaluation Date of Evaluation: 02/05/19 Time of Evaluation: 19:50 - Subjective Subjective: Patient scheduled for RHC tomorrow at 6pm to assess Pulmonary HTN NPO after lunch Labs in am Patient is a73 years old male with PMHX of HTN, COPD, GERD,CAD, Cardiomyopathy, AFib, CABG, AICD, Alcoholic Liver Cirrhosis transferred from [facility] for TIPS procedure. He was admitted in [facility] for liver failure and toxic metabolic encephalopathy. He was treated at [place] and found not be a candidate for TIPS. A hepatobiliary surgeon was contacted and made the decision to transfer him to [facility] to be reevaluated. Patient admits to dry cough and SOB that is improving. He denies fevers, chills, chest pain. PMHX: CHF, COPD, GERD,CAD, Cardiomyopathy, AFib, CABG, AICD, Alcoholic Liver Cirrhosis Family HX: Unknown PSHX: CABG 2014, Cholecystectomy, Hernia Repair, AICD 2014, Cardiac Cath 2017 ALL: NKDA MEDS: As per chart SOCIAL: History of Tobacco use Review of Systems - Review of Systems All systems: reviewed and no additional remarkable complaints except (Complaining of abdominal distention and weakness) Physical Exam - Head Exam Head Exam: ATRAUMATIC, NORMOCEPHALIC - ENT Exam ENT Exam: Mucous Membranes Moist - Neck Exam Neck exam: Positive for: Normal Inspection - Respiratory Exam Respiratory Exam: Clear to Auscultation Bilateral - Cardiovascular Exam Cardiovascular Exam: REGULAR RHYTHM - GI/Abdominal Exam GI & Abdominal Exam: Distended - Extremities Exam Extremities exam: Positive for: pedal edema Results - Vital Signs Recent Vital Signs: Last Vital Signs Temp 97.8 F 02/05/19 07:30 Pulse 66 02/05/19 07:30 Resp 20 02/05/19 07:30 BP 116/65 02/05/19 11:17 Pulse Ox 94 L 02/05/19 07:30 - Labs Result Diagrams: 02/06/19 07:07 02/04/19 06:22 Labs: Laboratory Results - last 24 hr 02/05/19 02/05/19 02/05/19 07:04 07:04 12:31 WBC 12.3 H RBC 3.24 L Hgb 8.6 L Hct 27.7 L MCV 85.6 MCH 26.6 L MCHC 31.1 L RDW 20.6 H Plt Count 203 MPV 8.5 APTT 32 D Fluid Source Peritoneal Fluid Appearance Sl cloudy Fluid WBC 146.0 Fluid RBC 3690.0 H Fluid Tot Cell Count 100 H Fluid Neutrophils 57.0 H Fluid Lymphocytes 41.0 H Fld Monocyte/Macrophag 2 H Fluid Comment Assessment & Plan (1) Pulmonary arterial hypertension associated with portal hypertension Status: Acute Comment: Objective - Vital Signs/Intake and Output Vital Signs (last 24 hours): Temp Pulse Resp BP Pulse Ox 97.9 F 60 20 108/62 97 02/06/19 04:00 02/06/19 07:10 02/06/19 04:00 02/06/19 04:00 02/06/19 04:00 Intake and Output: 02/06/19 02/06/19 06:59 18:59 Intake Total 556 Balance 556 - Medications Medications: Current Medications Albuterol Sulfate (Albuterol 0.083% Inhal Otilia (2.5 Mg/3 Ml) Ud) 2.5 mg IH RQ4 [facility] Last Admin: 02/06/19 03:08 Dose: 2.5 mg Docusate Sodium (Colace) 100 mg PO BID [facility] Last Admin: 02/05/19 18:36 Dose: 100 mg Furosemide (Lasix) 80 mg PO DAILY [facility] Last Admin: 02/05/19 11:17 Dose: 80 mg Heparin Sodium/Sodium Chloride (Heparin 25887 Units/250ml 1/2 Normal Saline) 25,000 units in 250 mls @ 9.525 mls/hr IV .Q24H PRN; Protocol PRN Reason: ADJUST RATE PER PROTOCOL Last Admin: 02/04/19 21:39 Dose: 14 units/kg/hr, 9.525 mls/hr Lactulose (Enulose) 30 gm PO TID [facility] Last Admin: 02/05/19 18:37 Dose: Not Given Levothyroxine Sodium (Synthroid) 50 mcg PO DAILY@0630 [facility] Last Admin: 02/06/19 06:52 Dose: 50 mcg Midodrine (Proamatine) 2.5 mg PO Q8 PRN PRN Reason: SBP 90 or less Prednisolone (Prednisolone) 10 mg PO DAILY [facility] Last Admin: 02/05/19 11:10 Dose: 10 mg Rifaximin (Xifaxan) 550 mg PO Q12 [facility]; Protocol Last Admin: 02/05/19 22:37 Dose: 550 mg Spironolactone (Aldactone) 50 mg PO QD7 [facility] Tramadol HCl (Ultram) 50 mg PO Q6 PRN PRN Reason: pain Last Admin: 02/05/19 06:24 Dose: 50 mg Zolpidem Tartrate (Ambien) 5 mg PO HS [facility] Last Admin: 02/05/19 22:37 Dose: 5 mg - Labs Labs: 02/06/19 07:07 02/04/19 06:22 PT 13.2 SECONDS (9.7-12.2) H D 02/04/19 06:22 INR 1.2 D 02/04/19 06:22 APTT 45 SECONDS (21-34) H 02/06/19 07:07 Assessment and Plan - Assessment and Plan (Free Text) Assessment: CHF, COPD, GERD,CAD, Cardiomyopathy, AFib, CABG, AICD, Alcoholic Liver Cirrhosis Patient for RHC tomorrow
[2019-02-06] MEDS: PrednisoLONE 6 MG/2 ML SYR PO SCH (09:30)
--- NOTE | 2019-02-06 10:49 | US ---
Date of Procedure: 02/05/2019 PROCEDURE: Ultrasound-guided paracentesis, CPT 28872 Medications: 7 cc 1% Lidocaine History Ascites, abdominal pain, cirrhosis TECHNIQUE: Following informed consent , the patient was placed supine on the stretcher and the site was marked. A limited abdominal ultrasound was performed that showed a large amount of intra-abdominal fluid. Procedural time out was called and the Pt's abdomen was marked and prepped and draped in the usual sterile fashion. Ultrasound-guided large volume paracentesis performed. A total of 4.2 Liters of straw colored fluid was removed without complication. IMPRESSION: Ultrasound-guided large volume paracentesis.
--- NOTE | 2019-02-06 12:43 | CP.PCM.PN ---
<Nii Centeno - Last Filed: 02/06/19 12:44> Subjective - Date & Time of Evaluation Date of Evaluation: 02/06/19 Time of Evaluation: 12:39 - Subjective Subjective: SURGERY NOTE FOR DR. WHIPPLE 73M seen and examined at bedside. Patient pain is controlled, no nausea or vomiting. Underwent paracentesis yesterday. Underwent echo which showed pulmonary hypertension. Objective - Vital Signs/Intake and Output Vital Signs (last 24 hours): Temp Pulse Resp BP Pulse Ox 98.1 F 60 20 110/63 100 02/06/19 07:00 02/06/19 07:10 02/06/19 07:00 02/06/19 09:29 02/06/19 07:00 Intake and Output: 02/06/19 02/06/19 06:59 18:59 Intake Total 556 Balance 556 - Medications Medications: Current Medications Albuterol Sulfate (Albuterol 0.083% Inhal Otilia (2.5 Mg/3 Ml) Ud) 2.5 mg IH RQ4 [facility] Last Admin: 02/06/19 11:07 Dose: 2.5 mg Docusate Sodium (Colace) 100 mg PO BID [facility] Last Admin: 02/06/19 09:30 Dose: 100 mg Furosemide (Lasix) 80 mg PO DAILY [facility] Last Admin: 02/06/19 09:29 Dose: 80 mg Heparin Sodium/Sodium Chloride (Heparin 00121 Units/250ml 1/2 Normal Saline) 25,000 units in 250 mls @ 9.525 mls/hr IV .Q24H PRN; Protocol PRN Reason: ADJUST RATE PER PROTOCOL Last Admin: 02/04/19 21:39 Dose: 14 units/kg/hr, 9.525 mls/hr Lactulose (Enulose) 30 gm PO TID [facility] Last Admin: 02/06/19 09:32 Dose: Not Given Levothyroxine Sodium (Synthroid) 50 mcg PO DAILY@0630 [facility] Last Admin: 02/06/19 06:52 Dose: 50 mcg Midodrine (Proamatine) 2.5 mg PO Q8 PRN PRN Reason: SBP 90 or less Prednisolone (Prednisolone) 10 mg PO DAILY [facility] Last Admin: 02/06/19 09:30 Dose: 10 mg Rifaximin (Xifaxan) 550 mg PO Q12 [facility]; Protocol Last Admin: 02/06/19 09:30 Dose: 550 mg Spironolactone (Aldactone) 50 mg PO QD7 [facility] Tramadol HCl (Ultram) 50 mg PO Q6 PRN PRN Reason: pain Last Admin: 02/05/19 06:24 Dose: 50 mg Zolpidem Tartrate (Ambien) 5 mg PO HS [facility] Last Admin: 02/05/19 22:37 Dose: 5 mg - Labs Labs: 02/06/19 07:07 02/04/19 06:22 PT 13.2 SECONDS (9.7-12.2) H D 02/04/19 06:22 INR 1.2 D 02/04/19 06:22 APTT 45 SECONDS (21-34) H 02/06/19 07:07 - Constitutional Appears: Non-toxic, No Acute Distress - Respiratory Exam Respiratory Exam: Clear to Ausculation Bilateral, NORMAL BREATHING PATTERN - Cardiovascular Exam Cardiovascular Exam: REGULAR RHYTHM, +S1, +S2 - GI/Abdominal Exam GI & Abdominal Exam: Soft. absent: Distended, Firm, Guarding, Rigid, Tend erness, Rebound - Neurological Exam Neurological Exam: Alert, Awake - Skin Skin Exam: Dry, Intact, Normal Color, Warm Assessment and Plan - Assessment and Plan (Free Text) Assessment: 73 y/o M w/ EtOH liver cirrhosis Plan: - Right heart cath today - Cont hep drip 2/2 Afib - Cont reg diet - Plan for OR tomorrow for Brett shunt placement - encourage OOB to chair/Amb Further recs as per Dr. Jim Centeno, PGY3 <Haroldo Whipple - Last Filed: 02/08/19 10:39> Objective - Vital Signs/Intake and Output Vital Signs (last 24 hours): Temp Pulse Resp BP Pulse Ox 98.0 F 67 18 109/68 98 02/08/19 07:00 02/08/19 07:50 02/08/19 07:00 02/08/19 09:49 02/08/19 07:00 Intake and Output: 02/08/19 02/08/19 06:59 18:59 Intake Total 337.2 Balance 337.2 - Medications Medications: Current Medications Docusate Sodium (Colace) 100 mg PO BID [facility] Last Admin: 02/08/19 09:50 Dose: 100 mg Furosemide (Lasix) 80 mg PO DAILY [facility] Last Admin: 02/08/19 09:49 Dose: 80 mg Heparin Sodium/Sodium Chloride (Heparin 93400 Units/250ml 1/2 Normal Saline) 25,000 units in 250 mls @ 10.886 mls/hr IV .[id number] PRN; Protocol PRN Reason: ADJUST RATE PER PROTOCOL Last Admin: 02/08/19 00:30 Dose: 16 units/kg/hr, 10.886 mls/hr Lactulose (Enulose) 30 gm PO TID [facility] Last Admin: 02/08/19 09:50 Dose: Not Given Levothyroxine Sodium (Synthroid) 50 mcg PO DAILY@0630 [facility] Last Admin: 02/08/19 06:32 Dose: 50 mcg Midodrine (Proamatine) 2.5 mg PO Q8 PRN PRN Reason: SBP 90 or less Prednisolone (Prednisolone) 10 mg PO DAILY [facility] Last Admin: 02/08/19 09:51 Dose: 10 mg Rifaximin (Xifaxan) 550 mg PO Q12 [facility]; Protocol Last Admin: 02/08/19 09:51 Dose: 550 mg Spironolactone (Aldactone) 50 mg PO QD7 [facility] Last Admin: 02/08/19 09:49 Dose: 50 mg Tramadol HCl (Ultram) 50 mg PO Q6 PRN PRN Reason: pain Last Admin: 02/07/19 20:49 Dose: 50 mg Zolpidem Tartrate (Ambien) 5 mg PO HS [facility] Last Admin: 02/07/19 21:59 Dose: 5 mg - Labs Labs: 02/08/19 07:59 02/07/19 07:55 PT 11.1 SECONDS (9.7-12.2) 02/07/19 07:55 INR 1.0 02/07/19 07:55 APTT 51 SECONDS (21-34) H D 02/08/19 07:59 Assessment and Plan - Assessment and Plan (Free Text) Plan: All medical record entries made by the resident were at my direction. I have reviewed the chart and agree that the record accurately reflects my personal performance of the history, physical exam, medical decision making. I have also personally examined the patient, reviewed, and agree the resident note.
--- NOTE | 2019-02-06 15:45 | CP.PCM.PN ---
Subjective - Date & Time of Evaluation Date of Evaluation: 02/06/19 Time of Evaluation: 14:00 - Subjective Subjective: Patient seen and examined Status post paracentesis yesterday and 4.5 L fluid removed Breathing better Denies any complaints Afebrile For right heart cath tomorrow Objective - Vital Signs/Intake and Output Vital Signs (last 24 hours): Temp Pulse Resp BP Pulse Ox 98.1 F 71 20 110/63 100 02/06/19 07:00 02/06/19 12:49 02/06/19 07:00 02/06/19 09:29 02/06/19 07:00 Intake and Output: 02/06/19 02/06/19 06:59 18:59 Intake Total 556 Balance 556 - Medications Medications: Current Medications Albuterol Sulfate (Albuterol 0.083% Inhal Otilia (2.5 Mg/3 Ml) Ud) 2.5 mg IH RQ4 [facility] Last Admin: 02/06/19 11:07 Dose: 2.5 mg Docusate Sodium (Colace) 100 mg PO BID [facility] Last Admin: 02/06/19 09:30 Dose: 100 mg Furosemide (Lasix) 80 mg PO DAILY [facility] Last Admin: 02/06/19 09:29 Dose: 80 mg Heparin Sodium/Sodium Chloride (Heparin 55862 Units/250ml 1/2 Normal Saline) 25 ,000 units in 250 mls @ 9.525 mls/hr IV .Q24H PRN; Protocol PRN Reason: ADJUST RATE PER PROTOCOL Last Admin: 02/04/19 21:39 Dose: 14 units/kg/hr, 9.525 mls/hr Lactulose (Enulose) 30 gm PO TID [facility] Last Admin: 02/06/19 13:23 Dose: Not Given Levothyroxine Sodium (Synthroid) 50 mcg PO DAILY@0630 [facility] Last Admin: 02/06/19 06:52 Dose: 50 mcg Midodrine (Proamatine) 2.5 mg PO Q8 PRN PRN Reason: SBP 90 or less Prednisolone (Prednisolone) 10 mg PO DAILY [facility] Last Admin: 02/06/19 09:30 Dose: 10 mg Rifaximin (Xifaxan) 550 mg PO Q12 [facility]; Protocol Last Admin: 02/06/19 09:30 Dose: 550 mg Spironolactone (Aldactone) 50 mg PO QD7 [facility] Tramadol HCl (Ultram) 50 mg PO Q6 PRN PRN Reason: pain Last Admin: 02/05/19 06:24 Dose: 50 mg Zolpidem Tartrate (Ambien) 5 mg PO HS [facility] Last Admin: 02/05/19 22:37 Dose: 5 mg - Labs Labs: 02/06/19 07:07 02/04/19 06:22 PT 13.2 SECONDS (9.7-12.2) H D 02/04/19 06:22 INR 1.2 D 02/04/19 06:22 APTT 45 SECONDS (21-34) H 02/06/19 07:07 Assessment and Plan (1) Pulmonary arterial hypertension associated with portal hypertension Status: Acute
[2019-02-06] MEDS ORDERED: Midazolam 2 MG/2 ML VIAL ONE (20:38)
--- NOTE | 2019-02-06 21:13 | CP.PCM.PN ---
Subjective - Date & Time of Evaluation Date of Evaluation: 02/06/19 Time of Evaluation: 21:11 - Subjective Subjective: Patient s/p RHC 1. PCW: 9mmHg 2. PA: 33/6 mmHg Mean 18mmHg 3. RV: 36/6 mmHg 4. RA: 9 Summary: Mild Pulmonary HTN Objective - Vital Signs/Intake and Output Vital Signs (last 24 hours): Temp Pulse Resp BP Pulse Ox 98.1 F 63 20 91/38 L 99 02/06/19 15:00 02/06/19 15:00 02/06/19 15:00 02/06/19 15:00 02/06/19 15:00 - Medications Medications: Current Medications Albuterol Sulfate (Albuterol 0.083% Inhal Otilia (2.5 Mg/3 Ml) Ud) 2.5 mg IH RQ4 [facility] Last Admin: 02/06/19 19:13 Dose: Not Given Docusate Sodium (Colace) 100 mg PO BID [facility] Last Admin: 02/06/19 18:00 Dose: Not Given Furosemide (Lasix) 80 mg PO DAILY [facility] Last Admin: 02/06/19 09:29 Dose: 80 mg Heparin Sodium/Sodium Chloride (Heparin 06546 Units/250ml 1/2 Normal Saline) 25,000 units in 250 mls @ 9.525 mls/hr IV .Q24H PRN; Protocol PRN Reason: ADJUST RATE PER PROTOCOL Last Admin: 02/04/19 21:39 Dose: 14 units/kg/hr, 9.525 mls/hr Lactulose (Enulose) 30 gm PO TID [facility] Last Admin: 02/06/19 18:00 Dose: Not Given Levothyroxine Sodium (Synthroid) 50 mcg PO DAILY@0630 [facility] Last Admin: 02/06/19 06:52 Dose: 50 mcg Midodrine (Proamatine) 2.5 mg PO Q8 PRN PRN Reason: SBP 90 or less Prednisolone (Prednisolone) 10 mg PO DAILY [facility] Last Admin: 02/06/19 09:30 Dose: 10 mg Rifaximin (Xifaxan) 550 mg PO Q12 [facility]; Protocol Last Admin: 02/06/19 09:30 Dose: 550 mg Spironolactone (Aldactone) 50 mg PO QD7 [facility] Tramadol HCl (Ultram) 50 mg PO Q6 PRN PRN Reason: pain Last Admin: 02/05/19 06:24 Dose: 50 mg Zolpidem Tartrate (Ambien) 5 mg PO HS [facility] Last Admin: 02/05/19 22:37 Dose: 5 mg - Labs Labs: 02/06/19 07:07 02/04/19 06:22 PT 13.2 SECONDS (9.7-12.2) H D 02/04/19 06:22 INR 1.2 D 02/04/19 06:22 APTT 45 SECONDS (21-34) H 02/06/19 07:07
[2019-02-07] MEDS: Albuterol 0.083% Inhal Sol (2.5 mg/3 mL) UD IH SCH ×4 (00:09→11:37)
[2019-02-07] MEDS: Heparin25000 units/250ml 1/2NS 25,000 UNITS/250 ML BAG IV PRN ×2 (01:08→09:31)
[2019-02-07] MEDS: Levothyroxine 50 MCG TAB PO SCH (05:43)
[2019-02-07 08:09] LABS: HEMOGLOBIN 10.1 g/dL (12.0-18.0); MEAN CELL VOLUME 86.3 fL (80.0-94.0); MEAN CORPUSCULAR HEMOGLOBIN 27.6 pg (27.0-31.0); MEAN PLATELET VOLUME 8.8 fL (7.2-11.7); RBC 3.67 Mil/uL (4.40-5.90); RED CELL DISTRIBUTION WIDTH 21.6 % (11.5-14.5); WHITE BLOOD COUNT 15.7 K/uL (4.8-10.8)
[2019-02-07 08:16] LABS: PROTHROMBIN TIME 11.1 SECONDS (9.7-12.2)
[2019-02-07 08:31] LABS: ALB/GLOB RATIO 1.4 (1.0-2.1); ALBUMIN 3.2 g/dL (3.5-5.0); ALT/SGPT 43 U/L (21-72); AST/SGOT 48 U/L (17-59); BLOOD UREA NITROGEN 19 mg/dL (9-20); CALCIUM 8.5 mg/dl (8.6-10.4); GFR NON-AFRICAN AMERICAN > 60
--- NOTE | 2019-02-07 09:32 | CP.PCM.PN ---
<Mario Lopez - Last Filed: 02/07/19 15:20> Subjective - Date & Time of Evaluation Date of Evaluation: 02/07/19 Time of Evaluation: 09:25 - Subjective Subjective: Progress Note for Dr. Fernandez Patient seen and examined at bedside. He states that he does not understand why he has to be transferred to [place] for TIPS procedure. He does not have abdominal pain, nausea, vomiting. He is tolerating food well without any issues. Right heart cath with Dr. Masterson showed mild pulmonary hypertension. Objective - Vital Signs/Intake and Output Vital Signs (last 24 hours): Temp Pulse Resp BP Pulse Ox 98.2 F 74 20 102/65 96 02/07/19 07:10 02/07/19 07:10 02/07/19 07:10 02/07/19 07:10 02/07/19 07:10 - Medications Medications: Current Medications Docusate Sodium (Colace) 100 mg PO BID [facility] Last Admin: 02/06/19 18:00 Dose: Not Given Furosemide (Lasix) 80 mg PO DAILY [facility] Last Admin: 02/06/19 09:29 Dose: 80 mg Heparin Sodium/Sodium Chloride (Heparin 38584 Units/250ml 1/2 Normal Saline) 25,000 units in 250 mls @ 10.886 mls/hr IV .[id number] PRN; Protocol PRN Reason: ADJUST RATE PER PROTOCOL Lactulose (Enulose) 30 gm PO TID [facility] Last Admin: 02/06/19 18:00 Dose: Not Given Levothyroxine Sodium (Synthroid) 50 mcg PO DAILY@0630 [facility] Last Admin: 02/07/19 05:43 Dose: 50 mcg Midodrine (Proamatine) 2.5 mg PO Q8 PRN PRN Reason: SBP 90 or less Prednisolone (Prednisolone) 10 mg PO DAILY [facility] Last Admin: 02/06/19 09:30 Dose: 10 mg Rifaximin (Xifaxan) 550 mg PO Q12 [facility]; Protocol Last Admin: 02/06/19 22:44 Dose: 550 mg Spironolactone (Aldactone) 50 mg PO QD7 [facility] Tramadol HCl (Ultram) 50 mg PO Q6 PRN PRN Reason: pain Last Admin: 02/07/19 05:43 Dose: 50 mg Zolpidem Tartrate (Ambien) 5 mg PO HS [facility] Last Admin: 02/06/19 22:44 Dose: 5 mg - Labs Labs: 02/07/19 07:55 02/07/19 07:55 PT 11.1 SECONDS (9.7-12.2) 02/07/19 07:55 INR 1.0 02/07/19 07:55 APTT 44 SECONDS (21-34) H 02/07/19 07:55 - Constitutional Appears: In Acute Distress - Head Exam Head Exam: ATRAUMATIC, NORMOCEPHALIC - Eye Exam Eye Exam: EOMI, PERRL - ENT Exam ENT Exam: Mucous Membranes Moist - Neck Exam Neck Exam: Full ROM - Respiratory Exam Respiratory Exam: NORMAL BREATHING PATTERN - Cardiovascular Exam Cardiovascular Exam: REGULAR RHYTHM, +S1, +S2 - GI/Abdominal Exam GI & Abdominal Exam: Soft, Normal Bowel Sounds. absent: Tenderness Assessment and Plan - Assessment and Plan (Free Text) Assessment: 73 year old male with alcoholic liver cirrhosis. Plan: Plan for OR today cancelled May be transferred to [place] for possible TIPS procedure Further recommendations as per Dr. Layo Lopez, PGY1 <Haroldo Fernandez - Last Filed: 02/10/19 14:33> Objective - Vital Signs/Intake and Output Vital Signs (last 24 hours): Temp Pulse Resp BP Pulse Ox 98.8 F 63 20 100/61 90 L 02/10/19 07:30 02/10/19 07:30 02/10/19 07:30 02/10/19 09:39 02/10/19 07:30 Intake and Output: 02/10/19 02/10/19 06:59 18:59 Intake Total 154.9 Balance 154.9 - Medications Medications: Current Medications Albumin Human (Albumin Human 25% (12.5 Gm/50 Ml)) 25 gm IV Q6 [facility] Stop: 02/11/19 00:01 Albuterol Sulfate (Albuterol 0.083% Inhal Otilia (2.5 Mg/3 Ml) Ud) 2.5 mg INH RQ4 [facility] Docusate Sodium (Colace) 100 mg PO BID [facility] Last Admin: 02/10/19 09:41 Dose: 100 mg Furosemide (Lasix) 80 mg PO DAILY [facility] Last Admin: 02/10/19 09:39 Dose: 80 mg Guaifenesin/Dextromethorphan (Robitussin Dm) 10 ml PO Q4H PRN PRN Reason: Cough and congestion Heparin Sodium/Sodium Chloride (Heparin 81197 Units/250ml 1/2 Normal Saline) 25,000 units in 250 mls @ 10.792 mls/hr IV .[id number] PRN; Protocol PRN Reason: PROTOCOL Lactulose (Enulose) 30 gm PO TID [facility] Last Admin: 02/10/19 13:18 Dose: Not Given Levothyroxine Sodium (Synthroid) 50 mcg PO DAILY@0630 [facility] Last Admin: 02/10/19 05:46 Dose: 50 mcg Midodrine (Proamatine) 2.5 mg PO Q8 PRN PRN Reason: SBP 90 or less Prednisone (Prednisone Tab) 5 mg PO DAILY [facility] Last Admin: 02/10/19 09:41 Dose: 5 mg Rifaximin (Xifaxan) 550 mg PO Q12 [facility]; Protocol Last Admin: 02/10/19 09:39 Dose: 550 mg Spironolactone (Aldactone) 50 mg PO QD7 [facility] Last Admin: 02/08/19 09:49 Dose: 50 mg Tramadol HCl (Ultram) 50 mg PO Q6 PRN PRN Reason: pain Last Admin: 02/10/19 10:00 Dose: 50 mg Zolpidem Tartrate (Ambien) 5 mg PO HS [facility] Last Admin: 02/09/19 21:28 Dose: 5 mg - Labs Labs: 02/10/19 12:59 02/10/19 12:59 PT 10.9 SECONDS (9.7-12.2) 02/10/19 08:58 INR 1.0 02/10/19 08:58 APTT 62 SECONDS (21-34) H D 02/10/19 08:58 Assessment and Plan - Assessment and Plan (Free Text) Plan: All medical record entries made by the resident were at my direction and personally directed by me. I have reviewed the chart and agree that the record accurately reflects my personal performance of the history, physical exam, medical decision making,
[2019-02-07] MEDS: PrednisoLONE 6 MG/2 ML SYR PO SCH (09:38)
--- NOTE | 2019-02-07 15:45 | CP.PCM.PN ---
Subjective - Date & Time of Evaluation Date of Evaluation: 02/07/19 Time of Evaluation: 11:00 - Subjective Subjective: Patient seen and examined Status post right heart cath with normal pulmonary artery pressure Denies shortness of breath, denies cough Status post paracentesis Patient for TIPS procedure at [facility] today Continue present treatment Objective - Vital Signs/Intake and Output Vital Signs (last 24 hours): Temp Pulse Resp BP Pulse Ox 98.2 F 74 20 102/65 96 02/07/19 07:10 02/07/19 11:09 02/07/19 07:10 02/07/19 09:37 02/07/19 07:10 Intake and Output: 02/07/19 02/07/19 06:59 18:59 Intake Total 430 Balance 430 - Medications Medications: Current Medications Docusate Sodium (Colace) 100 mg PO BID [facility] Last Admin: 02/07/19 09:37 Dose: 100 mg Furosemide (Lasix) 80 mg PO DAILY [facility] Last Admin: 02/07/19 09:37 Dose: 80 mg Heparin Sodium/Sodium Chloride (Heparin 27637 Units/250ml 1/2 Normal Saline) 25,000 units in 250 mls @ 10.886 mls/hr IV .[id number] PRN; Protocol PRN Reason: ADJUST RATE PER PROTOCOL Last Admin: 02/07/19 09:31 Dose: 16 units/kg/hr, 10.886 mls/hr Lactulose (Enulose) 30 gm PO TID [facility] Last Admin: 02/07/19 13:09 Dose: Not Given Levothyroxine Sodium (Synthroid) 50 mcg PO DAILY@0630 [facility] Last Admin: 02/07/19 05:43 Dose: 50 mcg Midodrine (Proamatine) 2.5 mg PO Q8 PRN PRN Reason: SBP 90 or less Prednisolone (Prednisolone) 10 mg PO DAILY [facility] Last Admin: 02/07/19 09:38 Dose: 10 mg Rifaximin (Xifaxan) 550 mg PO Q12 [facility]; Protocol Last Admin: 02/07/19 09:38 Dose: 550 mg Spironolactone (Aldactone) 50 mg PO QD7 [facility] Tramadol HCl (Ultram) 50 mg PO Q6 PRN PRN Reason: pain Last Admin: 02/07/19 05:43 Dose: 50 mg Zolpidem Tartrate (Ambien) 5 mg PO HS [facility] Last Admin: 02/06/19 22:44 Dose: 5 mg - Labs Labs: 02/07/19 07:55 02/07/19 07:55 PT 11.1 SECONDS (9.7-12.2) 02/07/19 07:55 INR 1.0 02/07/19 07:55 APTT 44 SECONDS (21-34) H 02/07/19 07:55 Assessment and Plan (1) Pulmonary arterial hypertension associated with portal hypertension Status: Acute
[2019-02-08] MEDS: Heparin25000 units/250ml 1/2NS 25,000 UNITS/250 ML BAG IV PRN (00:30)
[2019-02-08] MEDS: Levothyroxine 50 MCG TAB PO SCH (06:32)
[2019-02-08 08:11] LABS: HEMOGLOBIN 9.4 g/dL (12.0-18.0); MEAN CELL VOLUME 86.3 fL (80.0-94.0); MEAN CORPUSCULAR HEMOGLOBIN 27.1 pg (27.0-31.0); MEAN CORPUSCULAR HGB CONC 31.4 g/dL (33.0-37.0); MEAN PLATELET VOLUME 9.1 fL (7.2-11.7); RBC 3.46 Mil/uL (4.40-5.90); RED CELL DISTRIBUTION WIDTH 21.8 % (11.5-14.5); WHITE BLOOD COUNT 13.6 K/uL (4.8-10.8)
--- NOTE | 2019-02-08 09:10 | CP.PCM.PN ---
<RaudelMarleen - Last Filed: 02/08/19 09:06> Subjective - Date & Time of Evaluation Date of Evaluation: 02/08/19 Time of Evaluation: 07:00 - Subjective Subjective: HBP Surgery Dr. Ramirez Pt seen and examined @bedside. No acute events overnight. Pt sleeping on rounds. No complaints. tolerating diet. Objective - Vital Signs/Intake and Output Vital Signs (last 24 hours): Temp Pulse Resp BP Pulse Ox 98.0 F 67 18 107/63 98 02/08/19 07:00 02/08/19 07:50 02/08/19 07:00 02/08/19 07:00 02/08/19 07:00 Intake and Output: 02/08/19 02/08/19 06:59 18:59 Intake Total 337.2 Balance 337.2 - Medications Medications: Current Medications Docusate Sodium (Colace) 100 mg PO BID [facility] Last Admin: 02/07/19 18:11 Dose: 100 mg Furosemide (Lasix) 80 mg PO DAILY [facility] Last Admin: 02/07/19 09:37 Dose: 80 mg Heparin Sodium/Sodium Chloride (Heparin 81488 Units/250ml 1/2 Normal Saline) 25,000 units in 250 mls @ 10.886 mls/hr IV .[id number] PRN; Protocol PRN Reason: ADJUST RATE PER PROTOCOL Last Admin: 02/08/19 00:30 Dose: 16 units/kg/hr, 10.886 mls/hr Lactulose (Enulose) 30 gm PO TID [facility] Last Admin: 02/07/19 18:12 Dose: Not Given Levothyroxine Sodium (Synthroid) 50 mcg PO DAILY@0630 [facility] Last Admin: 02/08/19 06:32 Dose: 50 mcg Midodrine (Proamatine) 2.5 mg PO Q8 PRN PRN Reason: SBP 90 or less Prednisolone (Prednisolone) 10 mg PO DAILY [facility] Last Admin: 02/07/19 09:38 Dose: 10 mg Rifaximin (Xifaxan) 550 mg PO Q12 [facility]; Protocol Last Admin: 02/07/19 21:59 Dose: 550 mg Spironolactone (Aldactone) 50 mg PO QD7 [facility] Tramadol HCl (Ultram) 50 mg PO Q6 PRN PRN Reason: pain Last Admin: 02/07/19 20:49 Dose: 50 mg Zolpidem Tartrate (Ambien) 5 mg PO HS [facility] Last Admin: 02/07/19 21:59 Dose: 5 mg - Labs Labs: 02/08/19 07:59 02/07/19 07:55 PT 11.1 SECONDS (9.7-12.2) 02/07/19 07:55 INR 1.0 02/07/19 07:55 APTT 51 SECONDS (21-34) H D 02/08/19 07:59 - Constitutional Appears: Non-toxic, No Acute Distress - Head Exam Head Exam: NORMAL INSPECTION - Eye Exam Eye Exam: Normal appearance - ENT Exam ENT Exam: Mucous Membranes Moist - Respiratory Exam Respiratory Exam: NORMAL BREATHING PATTERN. absent: Accessory Muscle Use, Respiratory Distress - Cardiovascular Exam Cardiovascular Exam: REGULAR RHYTHM. absent: Bradycardia, Tachycardia - GI/Abdominal Exam GI & Abdominal Exam: Distended (ascites), Soft. absent: Firm, Guarding, Tend erness - Extremities Exam Extremities Exam: Normal Inspection - Neurological Exam Neurological Exam: Alert, Awake, Oriented x3 - Psychiatric Exam Psychiatric exam: Normal Affect, Normal Mood - Skin Skin Exam: Dry, Intact, Normal Color, Warm Assessment and Plan - Assessment and Plan (Free Text) Assessment: 73 y/o m w/ EtOH liver cirrhosis. Plan: - cont Hep gtt for Afib - cont medical management - awaiting transfer to [place] for TIPPs - f/u Cards, recs appreciated - f/u Pulm, recs appreciated Further recs per Dr. Ashley Starks DO PGY3 <Haroldo Ramirez - Last Filed: 02/08/19 10:41> Objective - Vital Signs/Intake and Output Vital Signs (last 24 hours): Temp Pulse Resp BP Pulse Ox 98.0 F 67 18 109/68 98 02/08/19 07:00 02/08/19 07:50 02/08/19 07:00 02/08/19 09:49 02/08/19 07:00 Intake and Output: 02/08/19 02/08/19 06:59 18:59 Intake Total 337.2 Balance 337.2 - Medications Medications: Current Medications Docusate Sodium (Colace) 100 mg PO BID [facility] Last Admin: 02/08/19 09:50 Dose: 100 mg Furosemide (Lasix) 80 mg PO DAILY [facility] Last Admin: 02/08/19 09:49 Dose: 80 mg Heparin Sodium/Sodium Chloride (Heparin 03175 Units/250ml 1/2 Normal Saline) 25,000 units in 250 mls @ 10.886 mls/hr IV .[id number] PRN; Protocol PRN Reason: ADJUST RATE PER PROTOCOL Last Admin: 02/08/19 00:30 Dose: 16 units/kg/hr, 10.886 mls/hr Lactulose (Enulose) 30 gm PO TID [facility] Last Admin: 02/08/19 09:50 Dose: Not Given Levothyroxine Sodium (Synthroid) 50 mcg PO DAILY@0630 [facility] Last Admin: 02/08/19 06:32 Dose: 50 mcg Midodrine (Proamatine) 2.5 mg PO Q8 PRN PRN Reason: SBP 90 or less Prednisolone (Prednisolone) 10 mg PO DAILY [facility] Last Admin: 02/08/19 09:51 Dose: 10 mg Rifaximin (Xifaxan) 550 mg PO Q12 [facility]; Protocol Last Admin: 02/08/19 09:51 Dose: 550 mg Spironolactone (Aldactone) 50 mg PO QD7 [facility] Last Admin: 02/08/19 09:49 Dose: 50 mg Tramadol HCl (Ultram) 50 mg PO Q6 PRN PRN Reason: pain Last Admin: 02/07/19 20:49 Dose: 50 mg Zolpidem Tartrate (Ambien) 5 mg PO HS [facility] Last Admin: 02/07/19 21:59 Dose: 5 mg - Labs Labs: 02/08/19 07:59 02/07/19 07:55 PT 11.1 SECONDS (9.7-12.2) 02/07/19 07:55 INR 1.0 02/07/19 07:55 APTT 51 SECONDS (21-34) H D 02/08/19 07:59 Assessment and Plan - Assessment and Plan (Free Text) Plan: All medical record entries made by the resident were at my direction. I have reviewed the chart and agree that the record accurately reflects my personal performance of the history, physical exam, medical decision making. I have also personally examined the patient, reviewed, and agree the resident note. As patient has no pulmonary HTN, and EF 50%, awaits TIPSS at [place]
[2019-02-08] MEDS: PrednisoLONE 6 MG/2 ML SYR PO SCH (09:51)
--- NOTE | 2019-02-08 11:54 | CP.PCM.PN ---
Subjective - Date & Time of Evaluation Date of Evaluation: 02/08/19 Time of Evaluation: 10:00 - Subjective Subjective: Patient was seen and examined Patient is improving clinically Admits to dry cough Denies fevers, chest pain, SOB Afebrile Recommend TIPS Outpatient Physical Exam O2 Saturation 96% NC General: NAD Cardio: S1, S2 Resp: normal breathing pattern Abd: distended A/P 1) cirrhosis/ Portal Hypertension -TIPS Outpatient Objective - Vital Signs/Intake and Output Vital Signs (last 24 hours): Temp Pulse Resp BP Pulse Ox 98.0 F 67 18 109/68 98 02/08/19 07:00 02/08/19 07:50 02/08/19 07:00 02/08/19 09:49 02/08/19 07:00 Intake and Output: 02/08/19 02/08/19 06:59 18:59 Intake Total 337.2 Balance 337.2 - Medications Medications: Current Medications Docusate Sodium (Colace) 100 mg PO BID [facility] Last Admin: 02/08/19 09:50 Dose: 100 mg Furosemide (Lasix) 80 mg PO DAILY [facility] Last Admin: 02/08/19 09:49 Dose: 80 mg Heparin Sodium/Sodium Chloride (Heparin 73764 Units/250ml 1/2 Normal Saline) 25,000 units in 250 mls @ 10.886 mls/hr IV .[id number] PRN; Protocol PRN Reason: ADJUST RATE PER PROTOCOL Last Admin: 02/08/19 00:30 Dose: 16 units/kg/hr, 10.886 mls/hr Lactulose (Enulose) 30 gm PO TID [facility] Last Admin: 02/08/19 09:50 Dose: Not Given Levothyroxine Sodium (Synthroid) 50 mcg PO DAILY@0630 [facility] Last Admin: 02/08/19 06:32 Dose: 50 mcg Midodrine (Proamatine) 2.5 mg PO Q8 PRN PRN Reason: SBP 90 or less Prednisolone (Prednisolone) 10 mg PO DAILY [facility] Last Admin: 02/08/19 09:51 Dose: 10 mg Rifaximin (Xifaxan) 550 mg PO Q12 [facility]; Protocol Last Admin: 02/08/19 09:51 Dose: 550 mg Spironolactone (Aldactone) 50 mg PO QD7 [facility] Last Admin: 03/29/19 09:49 Dose: 50 mg Tramadol HCl (Ultram) 50 mg PO Q6 PRN PRN Reason: pain Last Admin: 02/07/19 20:49 Dose: 50 mg Zolpidem Tartrate (Ambien) 5 mg PO HS [facility] Last Admin: 02/07/19 21:59 Dose: 5 mg - Labs Labs: 02/08/19 07:59 02/07/19 07:55 PT 11.1 SECONDS (9.7-12.2) 02/07/19 07:55 INR 1.0 02/07/19 07:55 APTT 51 SECONDS (21-34) H D 02/08/19 07:59 Assessment and Plan (1) Pulmonary arterial hypertension associated with portal hypertension Status: Acute
[2019-02-08] MEDS: Albuterol 0.083% Inhal Sol (2.5 mg/3 mL) UD INH PRN (19:19)
--- NOTE | 2019-02-08 23:35 | CP.PCM.PN ---
Subjective - Date & Time of Evaluation Date of Evaluation: 02/07/19 Time of Evaluation: 15:20 - Subjective Subjective: Patient seen and evaluated Denies chest pain and dyspnea Physical Exam - Head Exam Head Exam: ATRAUMATIC, NORMOCEPHALIC - ENT Exam ENT Exam: Mucous Membranes Moist - Neck Exam Neck exam: Positive for: Normal Inspection - Respiratory Exam Respiratory Exam: Clear to Auscultation Bilateral - Cardiovascular Exam Cardiovascular Exam: REGULAR RHYTHM - GI/Abdominal Exam GI & Abdominal Exam: Distended - Extremities Exam Extremities exam: Positive for: pedal edema Objective - Vital Signs/Intake and Output Vital Signs (last 24 hours): Temp Pulse Resp BP Pulse Ox 97.9 F 74 20 92/53 L 94 L 02/08/19 15:06 02/08/19 15:31 02/08/19 15:06 02/08/19 15:06 02/08/19 15:06 Intake and Output: 02/08/19 02/09/19 18:59 06:59 Intake Total 587.2 637.2 Balance 587.2 637.2 - Medications Medications: Current Medications Albuterol Sulfate (Albuterol 0.083% Inhal Otilia (2.5 Mg/3 Ml) Ud) 2.5 mg INH RQ6 PRN PRN Reason: SOB Last Admin: 02/08/19 19:19 Dose: 2.5 mg Docusate Sodium (Colace) 100 mg PO BID [facility] Last Admin: 02/08/19 17:22 Dose: 100 mg Furosemide (Lasix) 80 mg PO DAILY [facility] Last Admin: 02/08/19 09:49 Dose: 80 mg Heparin Sodium/Sodium Chloride (Heparin 18716 Units/250ml 1/2 Normal Saline) 25,000 units in 250 mls @ 10.886 mls/hr IV .[id number] PRN; Protocol PRN Reason: ADJUST RATE PER PROTOCOL Last Admin: 02/08/19 00:30 Dose: 16 units/kg/hr, 10.886 mls/hr Lactulose (Enulose) 30 gm PO TID [facility] Last Admin: 02/08/19 18:00 Dose: Not Given Levothyroxine Sodium (Synthroid) 50 mcg PO DAILY@0630 [facility] Last Admin: 02/08/19 06:32 Dose: 50 mcg Midodrine (Proamatine) 2.5 mg PO Q8 PRN PRN Reason: SBP 90 or less Prednisolone (Prednisolone) 10 mg PO DAILY [facility] Last Admin: 02/08/19 09:51 Dose: 10 mg Rifaximin (Xifaxan) 550 mg PO Q12 [facility]; Protocol Last Admin: 02/08/19 20:59 Dose: 550 mg Spironolactone (Aldactone) 50 mg PO QD7 [facility] Last Admin: 02/08/19 09:49 Dose: 50 mg Tramadol HCl (Ultram) 50 mg PO Q6 PRN PRN Reason: pain Last Admin: 02/07/19 20:49 Dose: 50 mg Zolpidem Tartrate (Ambien) 5 mg PO HS [facility] Last Admin: 02/08/19 20:59 Dose: 5 mg - Labs Labs: 02/08/19 07:59 02/07/19 07:55 PT 11.1 SECONDS (9.7-12.2) 02/07/19 07:55 INR 1.0 02/07/19 07:55 APTT 51 SECONDS (21-34) H D 02/08/19 07:59 Assessment and Plan - Assessment and Plan (Free Text) Assessment: CHF, COPD, GERD,CAD, Cardiomyopathy, AFib, CABG, AICD, Alcoholic Liver Cirrhosis S/P RHC: Mild Pulmonary HTN
--- NOTE | 2019-02-08 23:37 | CP.PCM.PN ---
Subjective - Date & Time of Evaluation Date of Evaluation: 02/08/19 Time of Evaluation: 07:30 - Subjective Subjective: Patient was seen and examined Denies chest pain and dyspnea Admits to dry cough Denies fevers, chest pain, SOB Afebrile Physical Exam - Head Exam Head Exam: ATRAUMATIC, NORMOCEPHALIC - ENT Exam ENT Exam: Mucous Membranes Moist - Neck Exam Neck exam: Positive for: Normal Inspection - Respiratory Exam Respiratory Exam: Clear to Auscultation Bilateral - Cardiovascular Exam Cardiovascular Exam: REGULAR RHYTHM - GI/Abdominal Exam GI & Abdominal Exam: Distended - Extremities Exam Extremities exam: Positive for: pedal edema A/P 1) cirrhosis/ Portal Hypertension -For TIPS Objective - Vital Signs/Intake and Output Vital Signs (last 24 hours): Temp Pulse Resp BP Pulse Ox 97.9 F 74 20 92/53 L 94 L 02/08/19 15:06 02/08/19 15:31 02/08/19 15:06 02/08/19 15:06 02/08/19 15:06 Intake and Output: 02/08/19 02/09/19 18:59 06:59 Intake Total 587.2 637.2 Balance 587.2 637.2 - Medications Medications: Current Medications Albuterol Sulfate (Albuterol 0.083% Inhal Otilia (2.5 Mg/3 Ml) Ud) 2.5 mg INH RQ6 PRN PRN Reason: SOB Last Admin: 02/08/19 19:19 Dose: 2.5 mg Docusate Sodium (Colace) 100 mg PO BID [facility] Last Admin: 02/08/19 17:22 Dose: 100 mg Furosemide (Lasix) 80 mg PO DAILY [facility] Last Admin: 02/08/19 09:49 Dose: 80 mg Heparin Sodium/Sodium Chloride (Heparin 55962 Units/250ml 1/2 Normal Saline) 25,000 units in 250 mls @ 10.886 mls/hr IV .[id number] PRN; Protocol PRN Reason: ADJUST RATE PER PROTOCOL Last Admin: 02/08/19 00:30 Dose: 16 units/kg/hr, 10.886 mls/hr Lactulose (Enulose) 30 gm PO TID [facility] Last Admin: 02/08/19 18:00 Dose: Not Given Levothyroxine Sodium (Synthroid) 50 mcg PO DAILY@0630 [facility] Last Admin: 02/08/19 06:32 Dose: 50 mcg Midodrine (Proamatine) 2.5 mg PO Q8 PRN PRN Reason: SBP 90 or less Prednisolone (Prednisolone) 10 mg PO DAILY [facility] Last Admin: 02/08/19 09:51 Dose: 10 mg Rifaximin (Xifaxan) 550 mg PO Q12 [facility]; Protocol Last Admin: 02/08/19 20:59 Dose: 550 mg Spironolactone (Aldactone) 50 mg PO QD7 [facility] Last Admin: 02/08/19 09:49 Dose: 50 mg Tramadol HCl (Ultram) 50 mg PO Q6 PRN PRN Reason: pain Last Admin: 02/07/19 20:49 Dose: 50 mg Zolpidem Tartrate (Ambien) 5 mg PO HS [facility] Last Admin: 02/08/19 20:59 Dose: 5 mg - Labs Labs: 02/08/19 07:59 02/07/19 07:55 PT 11.1 SECONDS (9.7-12.2) 02/07/19 07:55 INR 1.0 02/07/19 07:55 APTT 51 SECONDS (21-34) H D 02/08/19 07:59 Assessment and Plan - Assessment and Plan (Free Text) Assessment: CHF, COPD, GERD,CAD, Cardiomyopathy, AFib, CABG, AICD, Alcoholic Liver Cirrhosis S/P RHC: Mild Pulmonary HTN
[2019-02-09] MEDS: Heparin25000 units/250ml 1/2NS 25,000 UNITS/250 ML BAG IV PRN ×2 (00:14→21:50)
[2019-02-09] MEDS: Levothyroxine 50 MCG TAB PO SCH (06:32)
--- NOTE | 2019-02-09 07:58 | CP.PCM.PN ---
<Brittney Little - Last Filed: 02/09/19 07:55> Subjective - Date & Time of Evaluation Date of Evaluation: 02/09/19 Time of Evaluation: 07:55 - Subjective Subjective: Hepatobiliary surgery - Dr. Ramirez Pt S&ELaura MÁRQUEZ. Pt complains of mild abdominal pain but unchanged from prior. He denies any nausea or vomiting. HE has been OOB. No fevers/chills, sob or chest pain. Aware of plan for TIPs on monday. Objective - Vital Signs/Intake and Output Vital Signs (last 24 hours): Temp Pulse Resp BP Pulse Ox 98.0 F 76 18 96/59 L 99 02/09/19 07:00 02/09/19 07:00 02/09/19 07:00 02/09/19 07:00 02/09/19 07:00 Intake and Output: 02/09/19 02/09/19 06:59 18:59 Intake Total 887.2 Balance 887.2 - Medications Medications: Current Medications Albuterol Sulfate (Albuterol 0.083% Inhal Otilia (2.5 Mg/3 Ml) Ud) 2.5 mg INH RQ6 PRN PRN Reason: SOB Last Admin: 02/08/19 19:19 Dose: 2.5 mg Docusate Sodium (Colace) 100 mg PO BID [facility] Last Admin: 02/08/19 17:22 Dose: 100 mg Furosemide (Lasix) 80 mg PO DAILY [facility] Last Admin: 02/08/19 09:49 Dose: 80 mg Heparin Sodium/Sodium Chloride (Heparin 51702 Units/250ml 1/2 Normal Saline) 25,000 units in 250 mls @ 10.886 mls/hr IV .[id number] PRN; Protocol PRN Reason: ADJUST RATE PER PROTOCOL Last Admin: 02/09/19 00:14 Dose: 16 units/kg/hr, 10.886 mls/hr Lactulose (Enulose) 30 gm PO TID [facility] Last Admin: 02/08/19 18:00 Dose: Not Given Levothyroxine Sodium (Synthroid) 50 mcg PO DAILY@0630 [facility] Last Admin: 02/09/19 06:32 Dose: 50 mcg Midodrine (Proamatine) 2.5 mg PO Q8 PRN PRN Reason: SBP 90 or less Prednisolone (Prednisolone) 10 mg PO DAILY [facility] Last Admin: 02/08/19 09:51 Dose: 10 mg Rifaximin (Xifaxan) 550 mg PO Q12 [facility]; Protocol Last Admin: 02/08/19 20:59 Dose: 550 mg Spironolactone (Aldactone) 50 mg PO QD7 [facility] Last Admin: 02/08/19 09:49 Dose: 50 mg Tramadol HCl (Ultram) 50 mg PO Q6 PRN PRN Reason: pain Last Admin: 02/09/19 02:45 Dose: 50 mg Zolpidem Tartrate (Ambien) 5 mg PO HS [facility] Last Admin: 02/08/19 20:59 Dose: 5 mg - Labs Labs: 02/08/19 07:59 02/07/19 07:55 PT 11.1 SECONDS (9.7-12.2) 02/07/19 07:55 INR 1.0 02/07/19 07:55 APTT 51 SECONDS (21-34) H D 02/08/19 07:59 - Constitutional Appears: No Acute Distress - Head Exam Head Exam: ATRAUMATIC, NORMAL INSPECTION, NORMOCEPHALIC - Eye Exam Eye Exam: Normal appearance - Respiratory Exam Respiratory Exam: NORMAL BREATHING PATTERN. absent: Respiratory Distress - Cardiovascular Exam Cardiovascular Exam: REGULAR RHYTHM - GI/Abdominal Exam GI & Abdominal Exam: Distended, Soft. absent: Guarding, Rigid, Tenderness, Rebound - Neurological Exam Neurological Exam: Alert, Oriented x3 - Psychiatric Exam Psychiatric exam: Normal Affect, Normal Mood - Skin Skin Exam: Dry, Intact Assessment and Plan - Assessment and Plan (Free Text) Assessment: 73 y/o m w/ EtOH liver cirrhosis Plan: - Cont Hep gtt for Afib - Plan for transfer to [place] for TIPs w/ Dr. Carias on Monday - F/U cardiology and Pulmonology Further recs per Dr. Ramirez <Haroldo Ramirez - Last Filed: 02/10/19 14:22> Objective - Vital Signs/Intake and Output Vital Signs (last 24 hours): Temp Pulse Resp BP Pulse Ox 98.8 F 63 20 100/61 90 L 02/10/19 07:30 02/10/19 07:30 02/10/19 07:30 02/10/19 09:39 02/10/19 07:30 Intake and Output: 02/10/19 02/10/19 06:59 18:59 Intake Total 154.9 Balance 154.9 - Medications Medications: Current Medications Albumin Human (Albumin Human 25% (12.5 Gm/50 Ml)) 25 gm IV Q6 [facility] Stop: 02/11/19 12:01 Albuterol Sulfate (Albuterol 0.083% Inhal Otilia (2.5 Mg/3 Ml) Ud) 2.5 mg INH RQ4 [facility] Docusate Sodium (Colace) 100 mg PO BID [facility] Last Admin: 02/10/19 09:41 Dose: 100 mg Furosemide (Lasix) 80 mg PO DAILY [facility] Last Admin: 02/10/19 09:39 Dose: 80 mg Guaifenesin/Dextromethorphan (Robitussin Dm) 10 ml PO Q4H PRN PRN Reason: Cough and congestion Heparin Sodium/Sodium Chloride (Heparin 35634 Units/250ml 1/2 Normal Saline) 25,000 units in 250 mls @ 10.792 mls/hr IV .[id number] PRN; Protocol PRN Reason: PROTOCOL Lactulose (Enulose) 30 gm PO TID [facility] Last Admin: 02/10/19 13:18 Dose: Not Given Levothyroxine Sodium (Synthroid) 50 mcg PO DAILY@0630 [facility] Last Admin: 02/10/19 05:46 Dose: 50 mcg Midodrine (Proamatine) 2.5 mg PO Q8 PRN PRN Reason: SBP 90 or less Prednisone (Prednisone Tab) 5 mg PO DAILY [facility] Last Admin: 02/10/19 09:41 Dose: 5 mg Rifaximin (Xifaxan) 550 mg PO Q12 [facility]; Protocol Last Admin: 02/10/19 09:39 Dose: 550 mg Spironolactone (Aldactone) 50 mg PO QD7 [facility] Last Admin: 02/08/19 09:49 Dose: 50 mg Tramadol HCl (Ultram) 50 mg PO Q6 PRN PRN Reason: pain Last Admin: 02/10/19 10:00 Dose: 50 mg Zolpidem Tartrate (Ambien) 5 mg PO HS [facility] Last Admin: 02/09/19 21:28 Dose: 5 mg - Labs Labs: 02/10/19 12:59 02/10/19 12:59 PT 10.9 SECONDS (9.7-12.2) 02/10/19 08:58 INR 1.0 02/10/19 08:58 APTT 62 SECONDS (21-34) H D 02/10/19 08:58 Assessment and Plan - Assessment and Plan (Free Text) Assessment: All medical record entries made by the resident were at my direction and personally directed by me. I have reviewed the chart and agree that the record accurately reflects my personal performance of the history, physical exam, medical decision making,
[2019-02-09 08:50] LABS: MEAN CELL VOLUME 85.9 fL (80.0-94.0); MEAN CORPUSCULAR HEMOGLOBIN 27.7 pg (27.0-31.0); MEAN CORPUSCULAR HGB CONC 32.2 g/dL (33.0-37.0); MEAN PLATELET VOLUME 9.4 fL (7.2-11.7); RBC 3.26 Mil/uL (4.40-5.90); WHITE BLOOD COUNT 17.4 K/uL (4.8-10.8)
[2019-02-09] MEDS: PrednisoLONE 6 MG/2 ML SYR PO SCH (09:03)
[2019-02-09] MEDS ORDERED: PrednisoLONE 6 MG/2 ML SYR PO SCH (09:54)
--- NOTE | 2019-02-09 10:39 | CP.PCM.PN ---
Subjective - Date & Time of Evaluation Date of Evaluation: 02/09/19 Time of Evaluation: 09:00 - Subjective Subjective: Patient seen and examined Sitting comfortably in no distress Afebrile No chest pain For TIPS on Monday Objective - Vital Signs/Intake and Output Vital Signs (last 24 hours): Temp Pulse Resp BP Pulse Ox 98.0 F 76 18 96/59 L 99 02/09/19 07:00 02/09/19 07:00 02/09/19 07:00 02/09/19 09:03 02/09/19 07:00 Intake and Output: 02/09/19 02/09/19 06:59 18:59 Intake Total 1074.4 95.1 Output Total 2 Balance 1072.4 95.1 - Medications Medications: Current Medications Albumin Human (Albumin Human 25% (12.5 Gm/50 Ml)) 25 gm IV Q8 [facility] Stop: 02/10/19 06:01 Albuterol Sulfate (Albuterol 0.083% Inhal Otilia (2.5 Mg/3 Ml) Ud) 2.5 mg INH RQ6 PRN PRN Reason: SOB Last Admin: 02/08/19 19:19 Dose: 2.5 mg Ciprofloxacin (Cipro) 250 mg PO DAILY [facility]; Protocol Last Admin: 02/09/19 10:30 Dose: 250 mg Docusate Sodium (Colace) 100 mg PO BID [facility] Last Admin: 02/09/19 09:02 Dose: 100 mg Furosemide (Lasix) 80 mg PO DAILY [facility] Last Admin: 02/09/19 09:03 Dose: 80 mg Heparin Sodium/Sodium Chloride (Heparin 76013 Units/250ml 1/2 Normal Saline) 25,000 units in 250 mls @ 10.886 mls/hr IV .[id number] PRN; Protocol PRN Reason: ADJUST RATE PER PROTOCOL Last Titration: 02/09/19 09:01 Dose: 18 units/kg/hr, 12.247 mls/hr Lactulose (Enulose) 30 gm PO TID [facility] Last Admin: 02/09/19 09:03 Dose: 30 gm Levothyroxine Sodium (Synthroid) 50 mcg PO DAILY@0630 [facility] Last Admin: 02/09/19 06:32 Dose: 50 mcg Midodrine (Proamatine) 2.5 mg PO Q8 PRN PRN Reason: SBP 90 or less Prednisolone (Prednisolone) 5 mg PO DAILY [facility] Last Admin: 02/09/19 10:20 Dose: Not Given Rifaximin (Xifaxan) 550 mg PO Q12 [facility]; Protocol Last Admin: 02/09/19 09:03 Dose: 550 mg Spironolactone (Aldactone) 50 mg PO QD7 [facility] Last Admin: 02/08/19 09:49 Dose: 50 mg Tramadol HCl (Ultram) 50 mg PO Q6 PRN PRN Reason: pain Last Admin: 02/09/19 02:45 Dose: 50 mg Zolpidem Tartrate (Ambien) 5 mg PO HS [facility] Last Admin: 02/08/19 20:59 Dose: 5 mg - Labs Labs: 02/09/19 08:30 02/07/19 07:55 PT 11.1 SECONDS (9.7-12.2) 02/07/19 07:55 INR 1.0 02/07/19 07:55 APTT 43 SECONDS (21-34) H D 02/09/19 08:30 Assessment and Plan (1) Pulmonary arterial hypertension associated with portal hypertension Status: Acute
[2019-02-09] MEDS: Albumin Human 25% (12.5 gm/50 ml) IV SCH ×2 (13:12→21:28)
[2019-02-09] MEDS: Albuterol 0.083% Inhal Sol (2.5 mg/3 mL) UD INH PRN (19:58)
[2019-02-10] MEDS: Albuterol 0.083% Inhal Sol (2.5 mg/3 mL) UD INH PRN ×2 (04:24→08:23)
[2019-02-10] MEDS: Levothyroxine 50 MCG TAB PO SCH (05:46)
[2019-02-10] MEDS: Albumin Human 25% (12.5 gm/50 ml) IV SCH ×2 (05:47→17:56)
[2019-02-10 09:12] LABS: PROTHROMBIN TIME 10.9 SECONDS (9.7-12.2)
--- NOTE | 2019-02-10 09:49 | CP.PCM.PN ---
<Marleen Starks - Last Filed: 02/10/19 09:46> Subjective - Date & Time of Evaluation Date of Evaluation: 02/10/19 Time of Evaluation: 09:46 - Subjective Subjective: P Surgery Dr. Ramirez Pt seen and examined @bedside. No acute events overnight. Pt c/o sharp abd pain this AM. pt reports pain similar to previous episodes leading up to paracentesis. Pt denies F/C, N/V, D/C. tolerating diet. Objective - Vital Signs/Intake and Output Vital Signs (last 24 hours): Temp Pulse Resp BP Pulse Ox 98.8 F 63 20 100/61 90 L 02/10/19 07:30 02/10/19 07:30 02/10/19 07:30 02/10/19 09:39 02/10/19 07:30 Intake and Output: 02/10/19 02/10/19 06:59 18:59 Intake Total 154.9 Balance 154.9 - Medications Medications: Current Medications Albuterol Sulfate (Albuterol 0.083% Inhal Otilia (2.5 Mg/3 Ml) Ud) 2.5 mg INH RQ6 PRN PRN Reason: SOB Last Admin: 02/10/19 08:23 Dose: 2.5 mg Ciprofloxacin (Cipro) 250 mg PO DAILY [facility]; Protocol Last Admin: 02/10/19 09:40 Dose: 250 mg Docusate Sodium (Colace) 100 mg PO BID [facility] Last Admin: 02/10/19 09:41 Dose: 100 mg Furosemide (Lasix) 80 mg PO DAILY [facility] Last Admin: 02/10/19 09:39 Dose: 80 mg Heparin Sodium/Sodium Chloride (Heparin 88505 Units/250ml 1/2 Normal Saline) 25,000 units in 250 mls @ 10.886 mls/hr IV .[id number] PRN; Protocol PRN Reason: ADJUST RATE PER PROTOCOL Last Admin: 02/09/19 21:50 Dose: 18 units/kg/hr, 12.247 mls/hr Lactulose (Enulose) 30 gm PO TID [facility] Last Admin: 02/10/19 09:42 Dose: 30 gm Levothyroxine Sodium (Synthroid) 50 mcg PO DAILY@0630 [facility] Last Admin: 02/10/19 05:46 Dose: 50 mcg Midodrine (Proamatine) 2.5 mg PO Q8 PRN PRN Reason: SBP 90 or less Prednisone (Prednisone Tab) 5 mg PO DAILY [facility] Last Admin: 02/10/19 09:41 Dose: 5 mg Rifaximin (Xifaxan) 550 mg PO Q12 [facility]; Protocol Last Admin: 02/10/19 09:39 Dose: 550 mg Spironolactone (Aldactone) 50 mg PO QD7 [facility] Last Admin: 02/08/19 09:49 Dose: 50 mg Tramadol HCl (Ultram) 50 mg PO Q6 PRN PRN Reason: pain Last Admin: 02/09/19 13:10 Dose: 50 mg Zolpidem Tartrate (Ambien) 5 mg PO HS [facility] Last Admin: 02/09/19 21:28 Dose: 5 mg - Labs Labs: 02/09/19 08:30 02/07/19 07:55 PT 10.9 SECONDS (9.7-12.2) 02/10/19 08:58 INR 1.0 02/10/19 08:58 APTT 62 SECONDS (21-34) H D 02/10/19 08:58 - Constitutional Appears: Non-toxic, No Acute Distress - Head Exam Head Exam: NORMAL INSPECTION - Eye Exam Eye Exam: Normal appearance - ENT Exam ENT Exam: Mucous Membranes Moist - Respiratory Exam Respiratory Exam: NORMAL BREATHING PATTERN. absent: Accessory Muscle Use, Respiratory Distress - Cardiovascular Exam Cardiovascular Exam: REGULAR RHYTHM. absent: Bradycardia, Tachycardia - GI/Abdominal Exam GI & Abdominal Exam: Distended (ascites). absent: Firm, Guarding, Soft - Extremities Exam Extremities Exam: Normal Inspection - Neurological Exam Neurological Exam: Alert, Awake, Oriented x3 - Psychiatric Exam Psychiatric exam: Normal Affect, Normal Mood - Skin Skin Exam: Dry, Intact, Normal Color, Warm Assessment and Plan - Assessment and Plan (Free Text) Assessment: 73 y/o M w/ EtOH liver cirrhosis Plan: - cont Hep gtt for Afib - Plan for transfer to [place] for TIPs w/ Dr. Carias on Monday - F/U cardiology and Pulmonology - TLC removal today Further recs per Dr. Ashley Starks PGY3 <Haroldo Ramirez - Last Filed: 02/10/19 14:15> Objective - Vital Signs/Intake and Output Vital Signs (last 24 hours): Temp Pulse Resp BP Pulse Ox 98.8 F 63 20 100/61 90 L 02/10/19 07:30 02/10/19 07:30 02/10/19 07:30 02/10/19 09:39 02/10/19 07:30 Intake and Output: 02/10/19 02/10/19 06:59 18:59 Intake Total 154.9 Balance 154.9 - Medications Medications: Current Medications Albuterol Sulfate (Albuterol 0.083% Inhal Otilia (2.5 Mg/3 Ml) Ud) 2.5 mg INH RQ4 [facility] Docusate Sodium (Colace) 100 mg PO BID [facility] Last Admin: 02/10/19 09:41 Dose: 100 mg Furosemide (Lasix) 80 mg PO DAILY [facility] Last Admin: 02/10/19 09:39 Dose: 80 mg Guaifenesin/Dextromethorphan (Robitussin Dm) 10 ml PO Q4H PRN PRN Reason: Cough and congestion Heparin Sodium/Sodium Chloride (Heparin 52300 Units/250ml 1/2 Normal Saline) 25,000 units in 250 mls @ 10.792 mls/hr IV .[id number] PRN; Protocol PRN Reason: PROTOCOL Lactulose (Enulose) 30 gm PO TID [facility] Last Admin: 02/10/19 13:18 Dose: Not Given Levothyroxine Sodium (Synthroid) 50 mcg PO DAILY@0630 [facility] Last Admin: 02/10/19 05:46 Dose: 50 mcg Midodrine (Proamatine) 2.5 mg PO Q8 PRN PRN Reason: SBP 90 or less Prednisone (Prednisone Tab) 5 mg PO DAILY [facility] Last Admin: 02/10/19 09:41 Dose: 5 mg Rifaximin (Xifaxan) 550 mg PO Q12 [facility]; Protocol Last Admin: 02/10/19 09:39 Dose: 550 mg Spironolactone (Aldactone) 50 mg PO QD7 [facility] Last Admin: 02/08/19 09:49 Dose: 50 mg Tramadol HCl (Ultram) 50 mg PO Q6 PRN PRN Reason: pain Last Admin: 02/10/19 10:00 Dose: 50 mg Zolpidem Tartrate (Ambien) 5 mg PO HS [facility] Last Admin: 02/09/19 21:28 Dose: 5 mg - Labs Labs: 02/10/19 12:59 02/07/19 07:55 PT 10.9 SECONDS (9.7-12.2) 02/10/19 08:58 INR 1.0 02/10/19 08:58 APTT 62 SECONDS (21-34) H D 02/10/19 08:58 Assessment and Plan - Assessment and Plan (Free Text) Plan: All medical record entries made by the resident were at my direction and personally directed by me. I have reviewed the chart and agree that the record accurately reflects my personal performance of the history, physical exam, medical decision making,
[2019-02-10] MEDS ORDERED: Heparin25000 units/250ml 1/2NS 25,000 UNITS/250 ML BAG IV PRN (11:11)
[2019-02-10] MEDS ORDERED: guaiFENesin DM 200 mg-20 mg/10 ml UD PO PRN (12:26)
[2019-02-10] MEDS ORDERED: Albuterol 0.083% Inhal Sol (2.5 mg/3 mL) UD INH PRN (12:27)
[2019-02-10 13:04] LABS: BASO # 0.2 K/uL (0.0-0.2); BASO % 1.4 % (0.0-2.0); EOS # 0.2 K/uL (0.0-0.7); EOS % 1.2 % (0.0-4.0); HEMOGLOBIN 8.3 g/dL (12.0-18.0); LYMPH # 0.4 K/uL (1.0-4.3); LYMPH % 3.3 % (20.0-40.0); MEAN CELL VOLUME 86.3 fL (80.0-94.0); MEAN CORPUSCULAR HEMOGLOBIN 27.7 pg (27.0-31.0); MEAN CORPUSCULAR HGB CONC 32.2 g/dL (33.0-37.0); MEAN PLATELET VOLUME 8.5 fL (7.2-11.7); MONO % 7.4 % (0.0-10.0); NEUT # 11.4 K/uL (1.8-7.0); NEUT % 86.7 % (50.0-75.0); PLATELET COUNT 183 K/uL (130-400); RBC 2.99 Mil/uL (4.40-5.90); RED CELL DISTRIBUTION WIDTH 21.5 % (11.5-14.5); WHITE BLOOD COUNT 13.2 K/uL (4.8-10.8)
[2019-02-10 13:38] LABS: ALB/GLOB RATIO 1.2 (1.0-2.1); ALBUMIN 3.1 g/dL (3.5-5.0); ALT/SGPT 24 U/L (21-72); AST/SGOT 54 U/L (17-59); BLOOD UREA NITROGEN 21 mg/dL (9-20); CALCIUM 8.1 mg/dl (8.6-10.4); GFR NON-AFRICAN AMERICAN > 60
[2019-02-10 13:57] LABS: ANISOCYTOSIS MODERATE; BANDS 9 % (0-2); EOSINOPHIL 2 % (0-4); LYMPHOCYTE 5 % (20-40); MONOCYTE 5 % (0-10); NEUTROPHIL 79 % (50-75); PLATELET ESTIMATE NORMAL (NORMAL); TOTAL CELLS COUNTED 100
[2019-02-10 13:58] LABS: HYPOCHROMIC SLIGHT; OVALOCYTES SLIGHT
--- NOTE | 2019-02-10 14:19 | PCM.PROC ---
Procedures Attestation:: I certify that I have explained the specified Operation(s) or Procedure(s), risks, benefits and reasonable alternatives to the Patient and/or other person responsible. The opportunity was given to ask questions and all questions answered - Paracentesis Consent Obtained: written consent Time Out Performed: Yes Indication: Ascites, possible spontaneous bacterial peritonitis Procedure: therapeutic paracentesis (2L removed), diagnostic paracentesis (specimen sent for cell count/Cx) Location: [facility] Local Anesthetic Used: lidocaine 1%
[2019-02-10 14:39] LABS: BODY FLUID TYPE PERITONEAL/ASCITES
[2019-02-10 15:04] LABS: BF GROSS APPEARANCE CLOUDY (CLEAR)
[2019-02-10 15:05] LABS: BODY FLUID MONO/MACROPHAGE 29 % (0-0); BODY FLUID TOTAL COUNT 100 (0-0)
[2019-02-10] MEDS: Albuterol 0.083% Inhal Sol (2.5 mg/3 mL) UD INH SCH ×2 (16:45→19:28)
--- NOTE | 2019-02-10 23:41 | CARDCATH ---
PROCEDURE DATE: 02/06/2019 PROCEDURE: Right heart catheterization. CLINICAL INDICATIONS: 1. Pulmonary hypertension. 2. Dyspnea. 3. Cirrhosis of the liver. 4. Ascites. 5. Coronary artery disease. 6. Mitral valve disease. 7. Evaluation for TIPS. REFERRING PHYSICIANS: 1. Haroldo Havrey MD 2. Carson Pritchett MD PERFORMING PHYSICIAN: Nolan Masterson MD DESCRIPTION OF PROCEDURE: After informed consent, the patient was prepped and draped in the usual sterile fashion. Lidocaine 2% was given in the right groin for local anesthesia. Using micropuncture technique, a 7-Nepali sheath was introduced into the right common femoral vein. Using [place]-Андрей catheter, right heart catheterization was performed. All the pressures were measured. After the right heart catheterization, the [place]-Надрей catheter was removed. The sheath was pulled manually with excellent hemostasis. FINDINGS: 1. PCW is 9 mmHg. 2. PA 33/6 mmHg, mean of 18 mmHg. 3. RV 36/6 mmHg, RA 9. IMPRESSION: Mild pulmonary hypertension. Nolan Masterson MD
[2019-02-11] MEDS: Albumin Human 25% (12.5 gm/50 ml) IV SCH ×2 (00:02→21:00)
[2019-02-11] MEDS: Albuterol 0.083% Inhal Sol (2.5 mg/3 mL) UD INH SCH ×7 (00:23→21:54)
[2019-02-11] MEDS: Levothyroxine 50 MCG TAB PO SCH (05:34)
[2019-02-11] MEDS ORDERED: Albuterol 0.083% Inhal Sol (2.5 mg/3 mL) UD INH STA (05:52)
[2019-02-11 06:52] LABS: BASO # 0.1 K/uL (0.0-0.2); BASO % 1.3 % (0.0-2.0); EOS # 0.2 K/uL (0.0-0.7); EOS % 1.9 % (0.0-4.0); HEMOGLOBIN 8.3 g/dL (12.0-18.0); LYMPH # 0.9 K/uL (1.0-4.3); LYMPH % 8.3 % (20.0-40.0); MEAN CORPUSCULAR HEMOGLOBIN 27.8 pg (27.0-31.0); MEAN CORPUSCULAR HGB CONC 32.3 g/dL (33.0-37.0); MEAN PLATELET VOLUME 8.8 fL (7.2-11.7); MONO % 8.6 % (0.0-10.0); NEUT # 9.1 K/uL (1.8-7.0); NEUT % 79.9 % (50.0-75.0); NRBC % 0.1 % (0.0-2.0); PLATELET COUNT 182 K/uL (130-400); RBC 2.99 Mil/uL (4.40-5.90); RED CELL DISTRIBUTION WIDTH 21.8 % (11.5-14.5); WHITE BLOOD COUNT 11.4 K/uL (4.8-10.8)
[2019-02-11 07:41] LABS: ALB/GLOB RATIO 1.4 (1.0-2.1); ALBUMIN 3.3 g/dL (3.5-5.0); ALT/SGPT 28 U/L (21-72); AST/SGOT 22 U/L (17-59); BLOOD UREA NITROGEN 18 mg/dL (9-20); CALCIUM 8.1 mg/dl (8.6-10.4); GFR NON-AFRICAN AMERICAN > 60
--- NOTE | 2019-02-11 08:12 | CP.PCM.PN ---
Subjective - Date & Time of Evaluation Date of Evaluation: 02/11/19 Time of Evaluation: 07:05 - Subjective Subjective: General Surgery progress note for Dr. Harvey PAtient seen and examined this am at bedside. No acute events overnight. Patient to go to [facility] today for TIPS procedure with Dr. Shailesh Carias. Pt had no complaints this morning and endorses improvement in his abdominal pain. Objective - Vital Signs/Intake and Output Vital Signs (last 24 hours): Temp Pulse Resp BP Pulse Ox 97.9 F 59 L 20 102/57 L 96 02/11/19 07:55 02/11/19 07:55 02/11/19 07:55 02/11/19 07:55 02/11/19 07:55 Intake and Output: 02/11/19 02/11/19 06:59 18:59 Intake Total 733.5 Balance 733.5 - Medications Medications: Current Medications Albuterol Sulfate (Albuterol 0.083% Inhal Otilia (2.5 Mg/3 Ml) Ud) 2.5 mg INH RQ4 LENIN Docusate Sodium (Colace) 100 mg PO BID [facility] Last Admin: 02/10/19 17:55 Dose: 100 mg Furosemide (Lasix) 80 mg PO DAILY [facility] Last Admin: 02/10/19 09:39 Dose: 80 mg Guaifenesin/Dextromethorphan (Robitussin Dm) 10 ml PO Q4H PRN PRN Reason: Cough and congestion Heparin Sodium/Sodium Chloride (Heparin 59713 Units/250ml 1/2 Normal Saline) 25,000 units in 250 mls @ 10.792 mls/hr IV .[id number] PRN; Protocol PRN Reason: PROTOCOL Last Admin: 02/10/19 18:20 Dose: 16 units/kg/hr, 10.792 mls/hr Lactulose (Enulose) 30 gm PO TID [facility] Last Admin: 02/10/19 17:56 Dose: Not Given Levothyroxine Sodium (Synthroid) 50 mcg PO DAILY@0630 [facility] Last Admin: 02/11/19 05:34 Dose: 50 mcg Midodrine (Proamatine) 2.5 mg PO Q8 PRN PRN Reason: SBP 90 or less Prednisone (Prednisone Tab) 5 mg PO DAILY [facility] Last Admin: 02/10/19 09:41 Dose: 5 mg Rifaximin (Xifaxan) 550 mg PO Q12 LENIN; Protocol Last Admin: 02/10/19 21:42 Dose: 550 mg Spironolactone (Aldactone) 50 mg PO QD7 LENIN Last Admin: 02/08/19 09:49 Dose: 50 mg Tramadol HCl (Ultram) 50 mg PO Q6 PRN PRN Reason: pain Last Admin: 02/10/19 10:00 Dose: 50 mg Zolpidem Tartrate (Ambien) 5 mg PO HS LENIN Last Admin: 02/10/19 21:42 Dose: 5 mg - Labs Labs: 02/11/19 06:43 02/11/19 06:43 PT 10.9 SECONDS (9.7-12.2) 02/10/19 08:58 INR 1.0 02/10/19 08:58 APTT 29 SECONDS (21-34) D 02/11/19 06:43 - Constitutional Appears: Well, Non-toxic, No Acute Distress - Head Exam Head Exam: ATRAUMATIC, NORMOCEPHALIC - Eye Exam Eye Exam: EOMI - ENT Exam ENT Exam: Mucous Membranes Moist - Respiratory Exam Respiratory Exam: NORMAL BREATHING PATTERN - Cardiovascular Exam Cardiovascular Exam: REGULAR RHYTHM - GI/Abdominal Exam GI & Abdominal Exam: Distended (mild), Soft, Tenderness (mild). absent: G uarding, Rebound - Extremities Exam Extremities Exam: absent: Calf Tenderness, Pedal Edema - Neurological Exam Neurological Exam: Alert, Awake, Oriented x3 - Psychiatric Exam Psychiatric exam: Normal Affect, Normal Mood - Skin Skin Exam: Dry, Intact, Normal Color, Warm Assessment and Plan - Assessment and Plan (Free Text) Assessment: 73 yr old male with ETOH liver cirrhosis Plan: - holding heparin ahead of TIPS procedure today - Plan for transfer to [facility] for TIPs w/ Dr. Carias this am - Pt will need ICU bed after procedure - ammonia level ordered Further recs per Dr. Duran
[2019-02-11 09:28] LABS: EOSINOPHIL 2 % (0-4); LYMPHOCYTE 11 % (20-40); MONOCYTE 2 % (0-10); NEUTROPHIL 85 % (50-75); TOTAL CELLS COUNTED 100
[2019-02-11 09:29] LABS: ANISOCYTOSIS SLIGHT; HYPOCHROMIC SLIGHT; PLATELET ESTIMATE NORMAL (NORMAL)
[2019-02-11 09:30] LABS: POLYCHROMIC SLIGHT
--- NOTE | 2019-02-11 20:36 | CP.PCM.CON ---
History of Present Illness - History of Present Illness History of Present Illness: 73 yo M w/ pmh of HTN, Hyperlipidemia, COPD, GERD, CAD, Cardiomyopathy, Chronic AFib CABG, AICD/PM, Alcoholic Liver Cirrhosis, Pulmonary HTN transferred back to [facility] following TIPS procedure (done at [facility] today). c/o back pain Had Paracentesis yesteday Patient was recently admitted to [place] for decompensated liver failure and acute toxic metabolic encephalopathy w/ septic shock with concerns for SBP. He was treated there in the ICU and underwent multiple paracentesis with no growth. PSH: CABG 2014, Open Cholecystectomy, Umbilical hernia repair, AICD/Pacemaker 2014, Cardiac cath 09/2018 Social:Hx of ETOH use Review of Systems - Constitutional Constitutional: Weakness. absent: Anorexia - EENT Eyes: absent: Change in Vision, Diplopia Ears: absent: Dizziness Nose/Mouth/Throat: absent: Sore Throat - Cardiovascular Cardiovascular: Dyspnea on Exertion. absent: Chest Pain - Respiratory Respiratory: Cough, Dyspnea on Exertion - Gastrointestinal Gastrointestinal: Abdominal Pain. absent: Nausea, Vomiting - Genitourinary Genitourinary: absent: Dysuria - Musculoskeletal Musculoskeletal: Back Pain - Integumentary Integumentary: absent: Rash - Neurological Neurological: absent: Dizziness - Endocrine Endocrine: Fatigue. absent: Palpitations, Polyuria Past Patient History - Infectious Disease Hx of Infectious Diseases: None - Past Medical History & Family History Past Medical History?: Yes - Past Social History Smoking Status: Never Smoked Alcohol: > 2 Drinks/Day Drugs: Denies - CARDIAC Hx Hypertension: Yes - PULMONARY Hx Chronic Obstructive Pulmonary Disease (COPD): Yes - NEUROLOGICAL Hx Neurological Disorder: No - HEENT Hx HEENT Problems: No - RENAL Hx Chronic Kidney Disease: No - HEMATOLOGICAL/ONCOLOGICAL Hx Blood Disorders: No - INTEGUMENTARY Hx Dermatological Problems: No - MUSCULOSKELETAL/RHEUMATOLOGICAL Hx Musculoskeletal Disorders: No Hx Falls: No - GASTROINTESTINAL Hx Gastrointestinal Disorders: Yes - GENITOURINARY/GYNECOLOGICAL Hx Genitourinary Disorders: No - PSYCHIATRIC Hx Psychophysiologic Disorder: No Meds Allergies/Adverse Reactions: Allergies Allergy/AdvReac Type Severity Reaction Status Date / Time No Known Allergies Allergy Verified 02/02/19 03:19 - Medications Medications: Current Medications Albumin Human (Albumin Human 25% (12.5 Gm/50 Ml)) 12.5 gm IV Q6 LENIN Stop: 02/13/19 12:01 Albuterol Sulfate (Albuterol 0.083% Inhal Otilia (2.5 Mg/3 Ml) Ud) 2.5 mg INH RQ4 [facility] Last Admin: 02/11/19 19:37 Dose: Not Given Docusate Sodium (Colace) 100 mg PO BID [facility] Last Admin: 02/11/19 17:34 Dose: Not Given Furosemide (Lasix) 80 mg PO DAILY [facility] Last Admin: 02/11/19 09:31 Dose: Not Given Guaifenesin/Dextromethorphan (Robitussin Dm) 10 ml PO Q4H PRN PRN Reason: Cough and congestion Heparin Sodium/Sodium Chloride (Heparin 39665 Units/250ml 1/2 Normal Saline) 25,000 units in 250 mls @ 10.792 mls/hr IV .[id number] PRN; Protocol PRN Reason: PROTOCOL Last Admin: 02/10/19 18:20 Dose: 16 units/kg/hr, 10.792 mls/hr Lactulose (Enulose) 30 gm PO TID [facility] Last Admin: 02/11/19 17:34 Dose: Not Given Levothyroxine Sodium (Synthroid) 50 mcg PO DAILY@0630 [facility] Last Admin: 02/11/19 05:34 Dose: 50 mcg Midodrine (Proamatine) 2.5 mg PO Q8 PRN PRN Reason: SBP 90 or less Prednisone (Prednisone Tab) 5 mg PO DAILY [facility] Last Admin: 02/11/19 09:30 Dose: 5 mg Rifaximin (Xifaxan) 550 mg PO Q12 [facility]; Protocol Last Admin: 02/11/19 09:31 Dose: 550 mg Spironolactone (Aldactone) 50 mg PO QD7 [facility] Last Admin: 02/08/19 09:49 Dose: 50 mg Tramadol HCl (Ultram) 50 mg PO Q6 PRN PRN Reason: pain Last Admin: 02/10/19 10:00 Dose: 50 mg Zolpidem Tartrate (Ambien) 5 mg PO HS [facility] Last Admin: 02/10/19 21:42 Dose: 5 mg Physical Exam - Constitutional Appears: No Acute Distress - Head Exam Head Exam: ATRAUMATIC, NORMAL INSPECTION, NORMOCEPHALIC - Eye Exam Eye Exam: EOMI, PERRL Pupil Exam: NORMAL ACCOMODATION - ENT Exam ENT Exam: Mucous Membranes Dry - Neck Exam Neck exam: Negative for: Lymphadenopathy Additional comments: Right neck with dressing at site of TIPS - Respiratory Exam Respiratory Exam: Clear to Auscultation Bilateral - Cardiovascular Exam Cardiovascular Exam: Irregular Rhythm - GI/Abdominal Exam GI & Abdominal Exam: Distended, Normal Bowel Sounds Additional comments: ascites + - Extremities Exam Extremities exam: Positive for: normal inspection, pedal pulses present. Negative for: calf tenderness, pedal edema - Back Exam Back exam: NORMAL INSPECTION - Neurological Exam Neurological exam: Alert, Oriented x3 - Skin Skin Exam: Dry, Normal Color, Warm Results - Vital Signs Recent Vital Signs: Last Vital Signs Temp 97.9 F 02/11/19 07:55 Pulse 71 02/11/19 08:04 Resp 20 02/11/19 07:55 BP 92/57 L 02/11/19 09:31 Pulse Ox 96 02/11/19 07:55 - Labs Result Diagrams: 02/11/19 06:43 02/11/19 06:43 Labs: Laboratory Results - last 24 hr 02/11/19 02/11/19 02/11/19 06:43 06:43 06:43 WBC 11.4 H RBC 2.99 L Hgb 8.3 L Hct 25.8 L MCV 86.0 MCH 27.8 MCHC 32.3 L RDW 21.8 H Plt Count 182 MPV 8.8 Neut % (Auto) 79.9 H Lymph % (Auto) 8.3 L [place] % (Auto) 8.6 Eos % (Auto) 1.9 Baso % (Auto) 1.3 Neut # (Auto) 9.1 H Lymph # (Auto) 0.9 L [place] # (Auto) 1.0 H Eos # (Auto) 0.2 Baso # (Auto) 0.1 Neutrophils % (Manual) 85 H Lymphocytes % (Manual) 11 L Monocytes % (Manual) 2 Eosinophils % (Manual) 2 Platelet Estimate Normal Polychromasia Slight Hypochromasia (manual) Slight Anisocytosis (manual) Slight APTT 29 D Sodium 128 L Potassium 3.9 Chloride 88 L Carbon Dioxide 34 H Anion Gap 10 BUN 18 Creatinine 0.9 Est GFR ( Amer) > 60 Est GFR (Non-Af Amer) > 60 Random Glucose 82 D Calcium 8.1 L Phosphorus 2.7 Magnesium 2.1 Total Bilirubin 0.5 AST 22 ALT 28 Alkaline Phosphatase 114 Ammonia Total Protein 5.7 L Albumin 3.3 L Globulin 2.4 Albumin/Globulin Ratio 1.4 02/11/19 07:04 WBC RBC Hgb Hct MCV MCH MCHC RDW Plt Count MPV Neut % (Auto) Lymph % (Auto) [place] % (Auto) Eos % (Auto) Baso % (Auto) Neut # (Auto) Lymph # (Auto) [place] # (Auto) Eos # (Auto) Baso # (Auto) Neutrophils % (Manual) Lymphocytes % (Manual) Monocytes % (Manual) Eosinophils % (Manual) Platelet Estimate Polychromasia Hypochromasia (manual) Anisocytosis (manual) APTT Sodium Potassium Chloride Carbon Dioxide Anion Gap BUN Creatinine Est GFR ( Amer) Est GFR (Non-Af Amer) Random Glucose Calcium Phosphorus Magnesium Total Bilirubin AST ALT Alkaline Phosphatase Ammonia < 9 L Total Protein Albumin Globulin Albumin/Globulin Ratio - EKG Data EKG Interpreted by: Myself - Imaging and Cardiology Chest x-ray Status: Image reviewed by me Assessment & Plan - Assessment and Plan (Free Text) Assessment: 1.Cirrhosis/Alchoholic liver disease/Ascites/Portal hypertension had TIPS procedure today will be monitored in ICU paracentesis PRN 2.CAD/CABG/Cardiomyopathy/Atrial fibrillation/AICD continue current meds 3.COPD- continue brochodilators 4.Hypothyroidism on Levothyroxine f/u TSH 5.Anemia f/u h/h
[2019-02-12] MEDS: Albuterol 0.083% Inhal Sol (2.5 mg/3 mL) UD INH SCH ×6 (03:29→19:41)
[2019-02-12] MEDS: Albumin Human 25% (12.5 gm/50 ml) IV SCH ×3 (05:45→11:45)
[2019-02-12] MEDS: Levothyroxine 50 MCG TAB PO SCH (05:48)
[2019-02-12 06:11] LABS: BASO # 0.1 K/uL (0.0-0.2); EOS # 0.2 K/uL (0.0-0.7); EOS % 1.6 % (0.0-4.0); HEMOGLOBIN 8.4 g/dL (12.0-18.0); LYMPH # 0.7 K/uL (1.0-4.3); LYMPH % 6.1 % (20.0-40.0); MEAN CELL VOLUME 85.8 fL (80.0-94.0); MEAN CORPUSCULAR HEMOGLOBIN 27.5 pg (27.0-31.0); MEAN CORPUSCULAR HGB CONC 32.1 g/dL (33.0-37.0); MEAN PLATELET VOLUME 8.8 fL (7.2-11.7); MONO % 8.8 % (0.0-10.0); NEUT # 9.2 K/uL (1.8-7.0); NEUT % 82.5 % (50.0-75.0); NRBC % 0.1 % (0.0-2.0); PLATELET COUNT 172 K/uL (130-400); RBC 3.04 Mil/uL (4.40-5.90); RED CELL DISTRIBUTION WIDTH 21.3 % (11.5-14.5); WHITE BLOOD COUNT 11.2 K/uL (4.8-10.8)
[2019-02-12 06:28] LABS: IRON 29 ug/dL (49-181)
[2019-02-12 06:38] LABS: % IRON SATURATION 11 (20-55); TOTAL IRON BINDING CAPACITY 255 ug/dL (250-450)
[2019-02-12 06:48] LABS: ALB/GLOB RATIO 1.4 (1.0-2.1); ALBUMIN 3.2 g/dL (3.5-5.0); ALT/SGPT 40 U/L (21-72); AST/SGOT 84 U/L (17-59); BLOOD UREA NITROGEN 12 mg/dL (9-20); CALCIUM 8.2 mg/dl (8.6-10.4); GFR NON-AFRICAN AMERICAN > 60
--- NOTE | 2019-02-12 07:11 | CP.CCUPN ---
<Arnie Rojo - Last Filed: 02/12/19 13:23> CCU Subjective - Physician Review Subjective (Free Text): ICU Progress Note for Dr. Pritchett Pt seen and examined at bedside this am. Observed ambulating out of bed to bathroom in unit without concerns. No acute events reported overnight by staff. Pt denies headache, dizziness, fever, chills, chest pain, sob, n/v/d/c, abd pain, urinary complaints, or other symptoms. S/p TIPS procedure performed by Dr. Carias [place] [facility] [place]. CCU Objective - Vital Signs / Intake & Output Vital Signs (Last 4 hours): Vital Signs Temp Pulse Ox 02/12/19 04:00 98.2 F 98 Intake and Output (Last 8hrs): Intake & Output 02/11/19 02/12/19 02/12/19 22:59 06:59 14:59 Intake Total 1270 Output Total 900 Balance 370 Weight 140 lb 9.6 oz 140 lb 9.6 oz Intake: Intake, IV Amount 270 Left Forearm 10 Right Forearm 260 Oral 1000 Output: Urine 900 Urine, Voided 900 Other: # Bowel Movements 0 - Physical Exam Head: Positive for: Atraumatic, Normocephalic Pupils: Positive for: PERRL Extroacular Muscles: Positive for: EOMI Mouth: Positive for: Moist Mucous Membranes Respiratory/Chest: Positive for: Clear to Auscultation, Good Air Exchange. Ne gative for: Respiratory Distress, Accessory Muscle Use, Wheezes, Rales, Rhonchi Cardiovascular: Positive for: Regular Rate and Rhythm, Normal S1, S2. Negative for: Murmurs, Rub, Gallop Abdomen: Positive for: Distention, Normal Bowel Sounds. Negative for: Tenderness Upper Extremity: Positive for: Normal Inspection, Normal ROM, NORMAL PULSES, Neurovascularly Intact, Capillary Refill < 2s. Negative for: Cyanosis, Edema Lower Extremity: Positive for: Normal Inspection, NORMAL PULSES, Neurovascularly Intact, Capillary Refill < 2 s. Negative for: Edema Neurological: Positive for: GCS=15, CN II-XII Intact Skin: Positive for: Warm, Dry Psychiatric: Positive for: Alert, Oriented x 3 - Medications Active Medications: Active Medications Generic Name Dose Route Start Last Admin Trade Name Freq PRN Reason Stop Dose Admin Albumin Human 12.5 gm 02/11/19 21:00 02/12/19 05:45 Albumin Human 25% (12.5 Gm/50 Ml) IV 02/12/19 12:01 12.5 gm Q6 LENIN Administration Albuterol Sulfate 2.5 mg 02/11/19 08:00 02/12/19 03:29 Albuterol 0.083% Inhal Otilia (2.5 Mg/3 Ml) Ud INH 2.5 mg RQ4 LENIN Administration Docusate Sodium 100 mg 02/05/19 10:00 02/11/19 17:34 Colace PO Not Given BID LENIN Furosemide 80 mg 02/02/19 19:25 02/11/19 09:31 Lasix PO Not Given DAILY LENIN Guaifenesin/Dextromethorphan 10 ml 02/10/19 12:26 Robitussin Dm PO Q4H PRN Cough and congestion Heparin Sodium/Sodium Chloride 25,000 units in 250 mls @ 10.792 mls/hr 02/10/19 11:11 02/10/19 18:20 Heparin 27500 Units/250ml 1/2 Normal Saline IV 16 units/kg/hr .[id number] PRN 10.792 mls/hr PROTOCOL Administration Protocol 16 UNITS/KG/HR Lactulose 30 gm 02/02/19 10:00 02/11/19 21:21 Enulose PO Not Given TID [facility] Levothyroxine Sodium 50 mcg 02/02/19 07:30 02/12/19 05:48 Synthroid PO 50 mcg DAILY@0630 LENIN Administration Midodrine 2.5 mg 02/02/19 03:59 Proamatine PO Q8 PRN SBP 90 or less Prednisone 5 mg 02/10/19 10:00 02/11/19 09:30 Prednisone Tab PO 5 mg DAILY LENIN Administration Rifaximin 550 mg 02/05/19 22:00 02/11/19 21:15 Xifaxan PO 550 mg Q12 LENIN Administration Protocol Spironolactone 50 mg 02/02/19 19:30 02/08/19 09:49 Aldactone PO 50 mg QD7 LENIN Administration Tramadol HCl 50 mg 02/02/19 03:59 02/12/19 02:28 Ultram PO 50 mg Q6 PRN Administration pain Zolpidem Tartrate 5 mg 02/04/19 22:00 02/11/19 21:15 Ambien PO 5 mg HS LENIN Administration - Patient Studies Lab Studies: Microbiology Studies 02/10/19 14:38 Gram Stain - Final Abdominal Fluid Body Fluid Culture - Preliminary NO GROWTH AFTER 24 HOURS Lab Studies 02/12/19 02/12/19 02/12/19 Range/Units 06:00 05:55 05:55 WBC 11.2 H (4.8-10.8) K/uL RBC 3.04 L (4.40-5.90) Mil/uL Hgb 8.4 L (12.0-18.0) g/dL Hct 26.1 L (35.0-51.0) % MCV 85.8 (80.0-94.0) fL MCH 27.5 (27.0-31.0) pg MCHC 32.1 L (33.0-37.0) g/dL RDW 21.3 H (11.5-14.5) % Plt Count 172 (130-400) K/uL MPV 8.8 (7.2-11.7) fL Neut % (Auto) 82.5 H (50.0-75.0) % Lymph % (Auto) 6.1 L (20.0-40.0) % [place] % (Auto) 8.8 (0.0-10.0) % Eos % (Auto) 1.6 (0.0-4.0) % Baso % (Auto) 1.0 (0.0-2.0) % Neut # (Auto) 9.2 H (1.8-7.0) K/uL Lymph # (Auto) 0.7 L (1.0-4.3) K/uL [place] # (Auto) 1.0 H (0.0-0.8) K/uL Eos # (Auto) 0.2 (0.0-0.7) K/uL Baso # (Auto) 0.1 (0.0-0.2) K/uL Neutrophils % (Manual) (50-75) % Lymphocytes % (Manual) (20-40) % Monocytes % (Manual) (0-10) % Eosinophils % (Manual) (0-4) % Platelet Estimate (NORMAL) Polychromasia Hypochromasia (manual) Anisocytosis (manual) Sodium 125 L (132-148) mmol/L Potassium 4.5 (3.6-5.2) mmol/L Chloride 88 L (98-107) mmol/L Carbon Dioxide 34 H (22-30) mmol/L Anion Gap 8 L (10-20) BUN 12 (9-20) mg/dL Creatinine 0.7 L (0.8-1.5) mg/dL Est GFR ( Amer) > 60 Est GFR (Non-Af Amer) > 60 Random Glucose 84 (75-110) mg/dL Calcium 8.2 L (8.6-10.4) mg/dl Phosphorus 2.8 (2.5-4.5) mg/dL Magnesium 2.2 (1.6-2.3) mg/dL Iron 29 L (49-181) ug/dL TIBC 255 (250-450) ug/dL % Saturation 11 L (20-55) Total Bilirubin 0.8 (0.2-1.3) mg/dL AST 84 H D (17-59) U/L ALT 40 (21-72) U/L Alkaline Phosphatase 198 H D (38-126) U/L Ammonia (9-33) umol/L Total Protein 5.6 L (6.3-8.3) g/dL Albumin 3.2 L (3.5-5.0) g/dL Globulin 2.4 (2.2-3.9) gm/dL Albumin/Globulin Ratio 1.4 (1.0-2.1) TSH 3rd Generation 51.20 H (0.46-4.68) mIU/L 02/11/19 02/11/19 02/11/19 Range/Units 07:04 06:43 06:43 WBC (4.8-10.8) K/uL RBC (4.40-5.90) Mil/uL Hgb (12.0-18.0) g/dL Hct (35.0-51.0) % MCV (80.0-94.0) fL MCH (27.0-31.0) pg MCHC (33.0-37.0) g/dL RDW (11.5-14.5) % Plt Count (130-400) K/uL MPV (7.2-11.7) fL Neut % (Auto) (50.0-75.0) % Lymph % (Auto) (20.0-40.0) % [place] % (Auto) (0.0-10.0) % Eos % (Auto) (0.0-4.0) % Baso % (Auto) (0.0-2.0) % Neut # (Auto) (1.8-7.0) K/uL Lymph # (Auto) (1.0-4.3) K/uL [place] # (Auto) (0.0-0.8) K/uL Eos # (Auto) (0.0-0.7) K/uL Baso # (Auto) (0.0-0.2) K/uL Neutrophils % (Manual) 85 H (50-75) % Lymphocytes % (Manual) 11 L (20-40) % Monocytes % (Manual) 2 (0-10) % Eosinophils % (Manual) 2 (0-4) % Platelet Estimate Normal (NORMAL) Polychromasia Slight Hypochromasia (manual) Slight Anisocytosis (manual) Slight Sodium 128 L (132-148) mmol/L Potassium 3.9 (3.6-5.2) mmol/L Chloride 88 L (98-107) mmol/L Carbon Dioxide 34 H (22-30) mmol/L Anion Gap 10 (10-20) BUN 18 (9-20) mg/dL Creatinine 0.9 (0.8-1.5) mg/dL Est GFR ( Amer) > 60 Est GFR (Non-Af Amer) > 60 Random Glucose 82 D (75-110) mg/dL Calcium 8.1 L (8.6-10.4) mg/dl Phosphorus 2.7 (2.5-4.5) mg/dL Magnesium 2.1 (1.6-2.3) mg/dL Iron (49-181) ug/dL TIBC (250-450) ug/dL % Saturation (20-55) Total Bilirubin 0.5 (0.2-1.3) mg/dL AST 22 (17-59) U/L ALT 28 (21-72) U/L Alkaline Phosphatase 114 (38-126) U/L Ammonia < 9 L (9-33) umol/L Total Protein 5.7 L (6.3-8.3) g/dL Albumin 3.3 L (3.5-5.0) g/dL Globulin 2.4 (2.2-3.9) gm/dL Albumin/Globulin Ratio 1.4 (1.0-2.1) TSH 3rd Generation (0.46-4.68) mIU/L Laboratory Results - last 24 hr 02/11/19 02/11/19 02/11/19 06:43 06:43 07:04 WBC RBC Hgb Hct MCV MCH MCHC RDW Plt Count MPV Neut % (Auto) Lymph % (Auto) [place] % (Auto) Eos % (Auto) Baso % (Auto) Neut # (Auto) Lymph # (Auto) [place] # (Auto) Eos # (Auto) Baso # (Auto) Neutrophils % (Manual) 85 H Lymphocytes % (Manual) 11 L Monocytes % (Manual) 2 Eosinophils % (Manual) 2 Platelet Estimate Normal Polychromasia Slight Hypochromasia (manual) Slight Anisocytosis (manual) Slight Sodium 128 L Potassium 3.9 Chloride 88 L Carbon Dioxide 34 H Anion Gap 10 BUN 18 Creatinine 0.9 Est GFR ( Amer) > 60 Est GFR (Non-Af Amer) > 60 Random Glucose 82 D Calcium 8.1 L Phosphorus 2.7 Magnesium 2.1 Iron TIBC % Saturation Total Bilirubin 0.5 AST 22 ALT 28 Alkaline Phosphatase 114 Ammonia < 9 L Total Protein 5.7 L Albumin 3.3 L Globulin 2.4 Albumin/Globulin Ratio 1.4 TSH 3rd Generation 02/12/19 02/12/19 02/12/19 05:55 05:55 06:00 WBC 11.2 H RBC 3.04 L Hgb 8.4 L Hct 26.1 L MCV 85.8 MCH 27.5 MCHC 32.1 L RDW 21.3 H Plt Count 172 MPV 8.8 Neut % (Auto) 82.5 H Lymph % (Auto) 6.1 L [place] % (Auto) 8.8 Eos % (Auto) 1.6 Baso % (Auto) 1.0 Neut # (Auto) 9.2 H Lymph # (Auto) 0.7 L [place] # (Auto) 1.0 H Eos # (Auto) 0.2 Baso # (Auto) 0.1 Neutrophils % (Manual) Lymphocytes % (Manual) Monocytes % (Manual) Eosinophils % (Manual) Platelet Estimate Polychromasia Hypochromasia (manual) Anisocytosis (manual) Sodium 125 L Potassium 4.5 Chloride 88 L Carbon Dioxide 34 H Anion Gap 8 L BUN 12 Creatinine 0.7 L Est GFR ( Amer) > 60 Est GFR (Non-Af Amer) > 60 Random Glucose 84 Calcium 8.2 L Phosphorus 2.8 Magnesium 2.2 Iron 29 L TIBC 255 % Saturation 11 L Total Bilirubin 0.8 AST 84 H D ALT 40 Alkaline Phosphatase 198 H D Ammonia Total Protein 5.6 L Albumin 3.2 L Globulin 2.4 Albumin/Globulin Ratio 1.4 TSH 3rd Generation 51.20 H Review of Systems - Constitutional Constitutional: absent: Fever, Chills, Sweats - EENT Eyes: UNREMARKABLE Nose/Mouth/Throat: UNREMARKABLE - Cardiovascular Cardiovascular: UNREMARKABLE - Respiratory Respiratory: UNREMARKABLE - Genitourinary Genitourinary: UNREMARKABLE Critical Care Progress Note - Nutrition Nutrition: Nutrition Category Date Time Status Altered GI/Hepatic Diet [DIET] Diets 02/11/19 Dinner Active Assessment/Plan - Assessment and Plan (Free Text) Assessment: 73 y o male with PMhx HTN, HLD, COPD, GERD, CAD s/p cath in 09/2018, Cardiomyopathy, A-fib, s/p CABG and AICD/pacemaker, pulmonary HTN, currently being monitored in ICU s/p TIPS procedure performed yesterday at [facility] [place]. Carias. Recently admitted to [place] for decompensated liver failure and acute toxic metabolic encephalopathy, septic shock, concern for SBP. S/p paracentesis. Stable for downgrade from ICU to telemetry floor at this time. Plan: Neuro: -AAOx3 -Ammonia level < 9 -Recently admitted to [place] for decompensated liver failure and acute toxic metabolic encephalopathy -Cont to monitor Cardio: -HR and BP stable -Hx HTN, HLD, CAD s/p cath in 09/2018, Cardiomyopathy, A-fib, s/p CABG and AICD/pacemaker, pulm HTN -Plan to bridge from heparin drip to Coumadin, coags ordered for this am -Lasix 80 mg daily -Midodrine 2.5 mg PO q8h prn -Spironolactone 50 mg PO q7d -S/p R heart cath with Dr. Masterson on 02/06/19 which demonstrated mild pulm HTN -Echo 02/02: LV systolic function borderline, EF 45-50%, mild tricuspid regurgitation, pacemaker lead in R ventricle, mild-mod pulm HTN Pulm: -Pulm HTN -Hx COPD -Duonebs q4h -Dr. Pritchett consulted, recs appreciated -Prednisone 5 mg daily -Recent CXR: no acute infiltrate GI: -Hx GERD, EtOH liver cirrhosis, ascites, portal HTN -S/p TIPS procedure yesterday -Liver CT 02/04: Advanced cirrhosis w/ findings suggestive of portal HTN inculding scar, large ascites, splenomegaly, and portal systemic collaterals in upper abd. No definite evidence of arterial enhancing mass lesion in liver to suggest hepatocellular carcinoma. Suspicious for pneumatosis in cecum and ascending colon. Correlate clinically for possible bowel ischemia. -S/p abd paracentesis -2 gm Na, low fat diet -Colace bid -Lactulose tid -Rifaximin q12h -IVF @ 100 cc/hr -Transaminitis, cont to trend -Further recs as per Surgical team Heme: -Iron studies low -H/H 8.4/26.1 Renal: -Trend I's/O's -Bun/Cr 12/0.7 -Hyponatremic this am, cont to trend -IVF as noted above PPX: -GI: n/a -DVT: Heparin drip, plan to bridge to Coumadin Pt seen, examined with, and plan discussed with Dr. Pritchett, attending physician. Arnie Rojo DO PGY-1, Call Center Support Consultant Pager #[phone] <Carson Pritchett - Last Filed: 02/12/19 17:07> CCU Subjective - Physician Review Critical Care Time Spent (in minutes): 30 CCU Objective - Vital Signs / Intake & Output Vital Signs (Last 4 hours): Vital Signs Temp Pulse Resp BP 02/12/19 16:09 78 22 101/66 02/12/19 16:00 97.4 F L 02/12/19 15:41 77 21 104/71 02/12/19 14:08 77 14 105/49 L 02/12/19 14:00 77 15 02/12/19 13:55 111/51 L Intake and Output (Last 8hrs): Intake & Output 02/12/19 02/12/19 02/12/19 06:59 14:59 22:59 Intake Total 1270 1040 200 Output Total 900 400 Balance 370 640 200 Weight 140 lb 9.6 oz Intake: Intake, IV Amount 270 200 200 Left Forearm 10 Right Forearm 260 200 200 Oral 1000 840 Output: Urine 900 400 Urine, Voided 900 400 Other: # Voids Urine, Voided 1 # Bowel Movements 0 1 - Medications Active Medications: Active Medications Generic Name Dose Route Start Last Admin Trade Name Freq PRN Reason Stop Dose Admin Albuterol Sulfate 2.5 mg 02/11/19 08:00 02/12/19 16:05 Albuterol 0.083% Inhal Otilia (2.5 Mg/3 Ml) Ud INH 2.5 mg RQ4 LENIN Administration Docusate Sodium 100 mg 02/05/19 10:00 02/12/19 09:18 Colace PO 100 mg BID LENIN Administration Furosemide 80 mg 02/02/19 19:25 02/12/19 10:10 Lasix PO 80 mg DAILY LENIN Administration Guaifenesin/Dextromethorphan 10 ml 02/10/19 12:26 Robitussin Dm PO Q4H PRN Cough and congestion Heparin Sodium/Sodium Chloride 25,000 units in 250 mls @ 10.792 mls/hr 0 02/10/19 11:11 02/10/19 18:20 Heparin 59791 Units/250ml 1/2 Normal Saline IV 16 units/kg/hr .[id number] PRN 10.792 mls/hr PROTOCOL Administration Protocol 16 UNITS/KG/HR Sodium Chloride 1,000 mls @ 100 mls/hr 02/12/19 12:15 02/12/19 13:48 Sodium Chloride 0.9% IV 100 mls/hr .Q10H LENIN Administration Lactulose 30 gm 02/02/19 10:00 02/12/19 13:48 Enulose PO 30 gm TID LENIN Administration Levothyroxine Sodium 50 mcg 02/02/19 07:30 02/12/19 05:48 Synthroid PO 50 mcg DAILY@0630 LENIN Administration Midodrine 2.5 mg 02/02/19 03:59 Proamatine PO Q8 PRN SBP 90 or less Prednisone 5 mg 02/10/19 10:00 02/12/19 10:07 Prednisone Tab PO 5 mg DAILY LENIN Administration Rifaximin 550 mg 02/05/19 22:00 02/12/19 09:18 Xifaxan PO 550 mg Q12 LENIN Administration Protocol Spironolactone 50 mg 02/02/19 19:30 02/08/19 09:49 Aldactone PO 50 mg QD7 LENIN Administration Tramadol HCl 50 mg 02/02/19 03:59 02/12/19 02:28 Ultram PO 50 mg Q6 PRN Administration pain Warfarin Sodium 10 mg 02/12/19 18:00 Coumadin PO 02/12/19 18:01 1800 LENIN Zolpidem Tartrate 5 mg 02/04/19 22:00 02/11/19 21:15 Ambien PO 5 mg HS LENIN Administration - Patient Studies Lab Studies: Microbiology Studies 02/10/19 14:38 Gram Stain - Final Abdominal Fluid Body Fluid Culture - Preliminary NO GROWTH AFTER 2 DAYS Lab Studies 02/12/19 02/12/19 02/12/19 Range/Units 12:28 06:00 05:55 WBC 11.2 H (4.8-10.8) K/uL RBC 3.04 L (4.40-5.90) Mil/uL Hgb 8.4 L (12.0-18.0) g/dL Hct 26.1 L (35.0-51.0) % MCV 85.8 (80.0-94.0) fL MCH 27.5 (27.0-31.0) pg MCHC 32.1 L (33.0-37.0) g/dL RDW 21.3 H (11.5-14.5) % Plt Count 172 (130-400) K/uL MPV 8.8 (7.2-11.7) fL Neut % (Auto) 82.5 H (50.0-75.0) % Lymph % (Auto) 6.1 L (20.0-40.0) % [place] % (Auto) 8.8 (0.0-10.0) % Eos % (Auto) 1.6 (0.0-4.0) % Baso % (Auto) 1.0 (0.0-2.0) % Neut # (Auto) 9.2 H (1.8-7.0) K/uL Lymph # (Auto) 0.7 L (1.0-4.3) K/uL [place] # (Auto) 1.0 H (0.0-0.8) K/uL Eos # (Auto) 0.2 (0.0-0.7) K/uL Baso # (Auto) 0.1 (0.0-0.2) K/uL Neutrophils % (Manual) 88 H (50-75) % Lymphocytes % (Manual) 6 L (20-40) % Monocytes % (Manual) 4 (0-10) % Eosinophils % (Manual) 2 (0-4) % Platelet Estimate Normal (NORMAL) Polychromasia Slight Hypochromasia (manual) Slight Anisocytosis (manual) Slight Ovalocytes Slight PT 11.3 (9.7-12.2) SECONDS INR 1.0 APTT 30 (21-34) SECONDS Sodium 125 L (132-148) mmol/L Potassium 4.5 (3.6-5.2) mmol/L Chloride 88 L (98-107) mmol/L Carbon Dioxide 34 H (22-30) mmol/L Anion Gap 8 L (10-20) BUN 12 (9-20) mg/dL Creatinine 0.7 L (0.8-1.5) mg/dL Est GFR ( Amer) > 60 Est GFR (Non-Af Amer) > 60 Random Glucose 84 (75-110) mg/dL Calcium 8.2 L (8.6-10.4) mg/dl Phosphorus 2.8 (2.5-4.5) mg/dL Magnesium 2.2 (1.6-2.3) mg/dL Iron (49-181) ug/dL TIBC (250-450) ug/dL % Saturation (20-55) Total Bilirubin 0.8 (0.2-1.3) mg/dL AST 84 H D (17-59) U/L ALT 40 (21-72) U/L Alkaline Phosphatase 198 H D (38-126) U/L Total Protein 5.6 L (6.3-8.3) g/dL Albumin 3.2 L (3.5-5.0) g/dL Globulin 2.4 (2.2-3.9) gm/dL Albumin/Globulin Ratio 1.4 (1.0-2.1) Vitamin B12 617 (239-931) pg/mL Folate 10.0 ng/mL TSH 3rd Generation 51.20 H (0.46-4.68) mIU/L 02/12/19 Range/Units 05:55 WBC (4.8-10.8) K/uL RBC (4.40-5.90) Mil/uL Hgb (12.0-18.0) g/dL Hct (35.0-51.0) % MCV (80.0-94.0) fL MCH (27.0-31.0) pg MCHC (33.0-37.0) g/dL RDW (11.5-14.5) % Plt Count (130-400) K/uL MPV (7.2-11.7) fL Neut % (Auto) (50.0-75.0) % Lymph % (Auto) (20.0-40.0) % [place] % (Auto) (0.0-10.0) % Eos % (Auto) (0.0-4.0) % Baso % (Auto) (0.0-2.0) % Neut # (Auto) (1.8-7.0) K/uL Lymph # (Auto) (1.0-4.3) K/uL [place] # (Auto) (0.0-0.8) K/uL Eos # (Auto) (0.0-0.7) K/uL Baso # (Auto) (0.0-0.2) K/uL Neutrophils % (Manual) (50-75) % Lymphocytes % (Manual) (20-40) % Monocytes % (Manual) (0-10) % Eosinophils % (Manual) (0-4) % Platelet Estimate (NORMAL) Polychromasia Hypochromasia (manual) Anisocytosis (manual) Ovalocytes PT (9.7-12.2) SECONDS INR APTT (21-34) SECONDS Sodium (132-148) mmol/L Potassium (3.6-5.2) mmol/L Chloride (98-107) mmol/L Carbon Dioxide (22-30) mmol/L Anion Gap (10-20) BUN (9-20) mg/dL Creatinine (0.8-1.5) mg/dL Est GFR ( Amer) Est GFR (Non-Af Amer) Random Glucose (75-110) mg/dL Calcium (8.6-10.4) mg/dl Phosphorus (2.5-4.5) mg/dL Magnesium (1.6-2.3) mg/dL Iron 29 L (49-181) ug/dL TIBC 255 (250-450) ug/dL % Saturation 11 L (20-55) Total Bilirubin (0.2-1.3) mg/dL AST (17-59) U/L ALT (21-72) U/L Alkaline Phosphatase (38-126) U/L Total Protein (6.3-8.3) g/dL Albumin (3.5-5.0) g/dL Globulin (2.2-3.9) gm/dL Albumin/Globulin Ratio (1.0-2.1) Vitamin B12 (239-931) pg/mL Folate ng/mL TSH 3rd Generation (0.46-4.68) mIU/L Laboratory Results - last 24 hr 02/12/19 02/12/19 02/12/19 05:55 05:55 06:00 WBC 11.2 H RBC 3.04 L Hgb 8.4 L Hct 26.1 L MCV 85.8 MCH 27.5 MCHC 32.1 L RDW 21.3 H Plt Count 172 MPV 8.8 Neut % (Auto) 82.5 H Lymph % (Auto) 6.1 L [place] % (Auto) 8.8 Eos % (Auto) 1.6 Baso % (Auto) 1.0 Neut # (Auto) 9.2 H Lymph # (Auto) 0.7 L [place] # (Auto) 1.0 H Eos # (Auto) 0.2 Baso # (Auto) 0.1 Neutrophils % (Manual) 88 H Lymphocytes % (Manual) 6 L Monocytes % (Manual) 4 Eosinophils % (Manual) 2 Platelet Estimate Normal Polychromasia Slight Hypochromasia (manual) Slight Anisocytosis (manual) Slight Ovalocytes Slight PT INR APTT Sodium 125 L Potassium 4.5 Chloride 88 L Carbon Dioxide 34 H Anion Gap 8 L BUN 12 Creatinine 0.7 L Est GFR ( Amer) > 60 Est GFR (Non-Af Amer) > 60 Random Glucose 84 Calcium 8.2 L Phosphorus 2.8 Magnesium 2.2 Iron 29 L TIBC 255 % Saturation 11 L Total Bilirubin 0.8 AST 84 H D ALT 40 Alkaline Phosphatase 198 H D Total Protein 5.6 L Albumin 3.2 L Globulin 2.4 Albumin/Globulin Ratio 1.4 Vitamin B12 617 Folate 10.0 TSH 3rd Generation 51.20 H 02/12/19 12:28 WBC RBC Hgb Hct MCV MCH MCHC RDW Plt Count MPV Neut % (Auto) Lymph % (Auto) [place] % (Auto) Eos % (Auto) Baso % (Auto) Neut # (Auto) Lymph # (Auto) [place] # (Auto) Eos # (Auto) Baso # (Auto) Neutrophils % (Manual) Lymphocytes % (Manual) Monocytes % (Manual) Eosinophils % (Manual) Platelet Estimate Polychromasia Hypochromasia (manual) Anisocytosis (manual) Ovalocytes PT 11.3 INR 1.0 APTT 30 Sodium Potassium Chloride Carbon Dioxide Anion Gap BUN Creatinine Est GFR ( Amer) Est GFR (Non-Af Amer) Random Glucose Calcium Phosphorus Magnesium Iron TIBC % Saturation Total Bilirubin AST ALT Alkaline Phosphatase Total Protein Albumin Globulin Albumin/Globulin Ratio Vitamin B12 Folate [facility] Critical Care Progress Note - Nutrition Nutrition: Nutrition Category Date Time Status Altered GI/Hepatic Diet [DIET] Diets 02/11/19 Dinner Active Assessment/Plan (1) Pulmonary arterial hypertension associated with portal hypertension Current Visit: Yes Status: Acute Attending/Attestation - Attestation I have personally seen and examined this patient.: Yes I have fully participated in the care of the patient.: Yes I have reviewed all pertinent clinical information: Yes Notes (Text): 02/12/19 17:06 Patient seen and examined in the intensive care unit. Case discussed with housestaff in the morning rounds. Status post TIPS procedure Stable to transfer to telemetry Continue present treatment
[2019-02-12 09:21] LABS: EOSINOPHIL 2 % (0-4); LYMPHOCYTE 6 % (20-40); MONOCYTE 4 % (0-10); NEUTROPHIL 88 % (50-75); TOTAL CELLS COUNTED 100
[2019-02-12 09:22] LABS: ANISOCYTOSIS SLIGHT; HYPOCHROMIC SLIGHT; PLATELET ESTIMATE NORMAL (NORMAL); POLYCHROMIC SLIGHT
[2019-02-12 09:23] LABS: OVALOCYTES SLIGHT
[2019-02-12 12:47] LABS: PROTHROMBIN TIME 11.3 SECONDS (9.7-12.2)
--- NOTE | 2019-02-12 12:57 | CP.PCM.PN ---
<Toby Elena - Last Filed: 02/12/19 12:53> Subjective - Date & Time of Evaluation Date of Evaluation: 02/12/19 Time of Evaluation: 06:45 - Subjective Subjective: HBS- Dr. Harvey Patient seen and examined. s/p TIPS pod#1. AAOx2 person and place, easily re- orients to time. moving all 4 extremities. Prior to TIPS 1.2L removed via paracentesis. saturating 97% on RA. MAPs between 67-90. Tolerating regular diet. + flatus, and BM. On Hep GGT. + oob and ambulating. Plan for bridging back to coumadin. Objective - Vital Signs/Intake and Output Vital Signs (last 24 hours): Temp Pulse Resp BP Pulse Ox 97.4 F L 78 15 102/59 L 100 02/12/19 12:00 02/12/19 12:00 02/12/19 12:00 02/12/19 11:08 02/12/19 08:09 Intake and Output: 02/12/19 02/12/19 06:59 18:59 Intake Total 1270 410 Output Total 900 Balance 370 410 - Medications Medications: Current Medications Albuterol Sulfate (Albuterol 0.083% Inhal Otilia (2.5 Mg/3 Ml) Ud) 2.5 mg INH RQ4 [facility] Last Admin: 02/12/19 08:00 Dose: 2.5 mg Docusate Sodium (Colace) 100 mg PO BID [facility] Last Admin: 02/12/19 09:18 Dose: 100 mg Furosemide (Lasix) 80 mg PO DAILY [facility] Last Admin: 02/12/19 10:10 Dose: 80 mg Guaifenesin/Dextromethorphan (Robitussin Dm) 10 ml PO Q4H PRN PRN Reason: Cough and congestion Heparin Sodium/Sodium Chloride (Heparin 97132 Units/250ml 1/2 Normal Saline) 25,000 units in 250 mls @ 10.792 mls/hr IV .[id number] PRN; Protocol PRN Reason: PROTOCOL Last Admin: 02/10/19 18:20 Dose: 16 units/kg/hr, 10.792 mls/hr Sodium Chloride (Sodium Chloride 0.9%) 1,000 mls @ 100 mls/hr IV .Q10H [facility] Lactulose (Enulose) 30 gm PO TID [facility] Last Admin: 02/12/19 09:18 Dose: 30 gm Levothyroxine Sodium (Synthroid) 50 mcg PO DAILY@0630 [facility] Last Admin: 02/12/19 05:48 Dose: 50 mcg Midodrine (Proamatine) 2.5 mg PO Q8 PRN PRN Reason: SBP 90 or less Prednisone (Prednisone Tab) 5 mg PO DAILY [facility] Last Admin: 02/12/19 10:07 Dose: 5 mg Rifaximin (Xifaxan) 550 mg PO Q12 [facility]; Protocol Last Admin: 02/12/19 09:18 Dose: 550 mg Spironolactone (Aldactone) 50 mg PO QD7 [facility] Last Admin: 02/08/19 09:49 Dose: 50 mg Tramadol HCl (Ultram) 50 mg PO Q6 PRN PRN Reason: pain Last Admin: 02/12/19 02:28 Dose: 50 mg Warfarin Sodium (Coumadin) 1 mg PO DAILY [facility] Stop: 02/12/19 18:01 Zolpidem Tartrate (Ambien) 5 mg PO HS [facility] Last Admin: 02/11/19 21:15 Dose: 5 mg - Labs Labs: 02/12/19 06:00 02/12/19 05:55 PT 11.3 SECONDS (9.7-12.2) 02/12/19 12:28 INR 1.0 02/12/19 12:28 APTT 30 SECONDS (21-34) 02/12/19 12:28 - Constitutional Appears: Non-toxic, No Acute Distress - Head Exam Head Exam: ATRAUMATIC - Eye Exam Eye Exam: EOMI. absent: Scleral icterus - ENT Exam ENT Exam: Mucous Membranes Moist - Neck Exam Additional comments: RIJ dressing C/D/I - Respiratory Exam Respiratory Exam: NORMAL BREATHING PATTERN. absent: Respiratory Distress - Cardiovascular Exam Cardiovascular Exam: REGULAR RHYTHM. absent: Bradycardia, Tachycardia - GI/Abdominal Exam GI & Abdominal Exam: Distended (baseline distention due to ascities), Soft. absent: Firm, Guarding, Rigid, Tenderness - Extremities Exam Extremities Exam: absent: Calf Tenderness - Neurological Exam Neurological Exam: Alert, Awake, Oriented x3 - Psychiatric Exam Psychiatric exam: Normal Affect - Skin Skin Exam: Intact, Warm Assessment and Plan - Assessment and Plan (Free Text) Assessment: 73M s/p TIPS POD#1 Plan: - Maintain O2 saturation - bridge anti-coag back to Coumadin - obtain ammonia level - lactulose and rifoxamin - cleared for downgrade out of ICU - OOB as tolerated - US of of abdomen after 24 hours post procedure - discussed w/ Surgical attending <Haroldo Fernandez - Last Filed: 02/14/19 21:47> Objective - Vital Signs/Intake and Output Vital Signs (last 24 hours): Temp Pulse Resp BP Pulse Ox 97.5 F L 63 20 101/61 100 02/14/19 16:00 02/14/19 16:00 02/14/19 16:00 02/14/19 16:00 02/14/19 16:00 Intake and Output: 02/14/19 02/15/19 18:59 06:59 Intake Total 732.4 Balance 732.4 - Medications Medications: Current Medications Albuterol Sulfate (Albuterol 0.083% Inhal Otilia (2.5 Mg/3 Ml) Ud) 2.5 mg INH RQ4 [facility] Last Admin: 02/14/19 19:17 Dose: 2.5 mg Docusate Sodium (Colace) 100 mg PO BID [facility] Last Admin: 02/14/19 17:40 Dose: 100 mg Furosemide (Lasix) 80 mg PO DAILY [facility] Last Admin: 02/14/19 10:00 Dose: 80 mg Guaifenesin/Dextromethorphan (Robitussin Dm) 10 ml PO Q4H PRN PRN Reason: Cough and congestion Heparin Sodium/Sodium Chloride (Heparin 76059 Units/250ml 1/2 Normal Saline) 25,000 units in 250 mls @ 11.48 mls/hr IV .[id number] PRN; Protocol PRN Reason: PROTOCOL Last Admin: 02/14/19 15:29 Dose: 18 units/kg/hr, 11.48 mls/hr Lactulose (Enulose) 30 gm PO DAILY [facility] Last Admin: 02/14/19 10:01 Dose: 30 gm Levothyroxine Sodium (Synthroid) 50 mcg PO DAILY@0630 [facility] Last Admin: 02/14/19 05:52 Dose: 50 mcg Magnesium Hydroxide (Milk Of Magnesia) 30 ml PO DAILY [facility] Stop: 02/15/19 10:01 Last Admin: 02/14/19 11:15 Dose: Not Given Midodrine (Proamatine) 2.5 mg PO Q8 PRN PRN Reason: SBP 90 or less Mineral Oil (Mineral Oil 30ml) 30 ml PO DAILY [facility] Last Admin: 02/14/19 10:19 Dose: 30 ml Prednisone (Prednisone Tab) 5 mg PO DAILY [facility] Last Admin: 02/14/19 10:20 Dose: 5 mg Rifaximin (Xifaxan) 550 mg PO Q12 [facility]; Protocol Last Admin: 02/14/19 21:38 Dose: 550 mg Spironolactone (Aldactone) 50 mg PO QD7 [facility] Last Admin: 02/08/19 09:49 Dose: 50 mg Tramadol HCl (Ultram) 50 mg PO Q6 PRN PRN Reason: pain Last Admin: 02/14/19 19:47 Dose: 50 mg Zolpidem Tartrate (Ambien) 5 mg PO HS [facility] Last Admin: 02/14/19 21:37 Dose: 5 mg - Labs Labs: 02/14/19 06:10 02/14/19 06:10 PT 13.6 SECONDS (9.7-12.2) H 02/14/19 06:10 INR 1.2 02/14/19 06:10 APTT 72 SECONDS (21-34) H D 02/14/19 06:10 Assessment and Plan - Assessment and Plan (Free Text) Plan: All medical record entries made by the resident were at my direction. I have reviewed the chart and agree that the record accurately reflects my personal performance of the history, physical exam, medical decision making.
[2019-02-12] MEDS: Sodium Chloride 0.9% 1,000 ML IV SCH ×2 (13:48→22:43)
[2019-02-12] MEDS ORDERED: Albumin Human 25% (12.5 gm/50 ml) IV SCH ×2 (18:00)
[2019-02-13] MEDS: Albuterol 0.083% Inhal Sol (2.5 mg/3 mL) UD INH SCH ×6 (00:48→19:14)
[2019-02-13] MEDS: Sodium Chloride 0.9% 1,000 ML IV SCH ×2 (00:55→09:05)
[2019-02-13 05:55] LABS: BASO # 0.1 K/uL (0.0-0.2); BASO % 0.7 % (0.0-2.0); EOS # 0.3 K/uL (0.0-0.7); EOS % 2.4 % (0.0-4.0); HEMOGLOBIN 8.3 g/dL (12.0-18.0); LYMPH # 0.9 K/uL (1.0-4.3); LYMPH % 8.1 % (20.0-40.0); MEAN CORPUSCULAR HEMOGLOBIN 26.9 pg (27.0-31.0); MEAN CORPUSCULAR HGB CONC 30.9 g/dL (33.0-37.0); MEAN PLATELET VOLUME 8.5 fL (7.2-11.7); MONO # 1.1 K/uL (0.0-0.8); NEUT # 8.9 K/uL (1.8-7.0); NEUT % 78.8 % (50.0-75.0); PLATELET COUNT 151 K/uL (130-400); RED CELL DISTRIBUTION WIDTH 21.3 % (11.5-14.5); WHITE BLOOD COUNT 11.3 K/uL (4.8-10.8)
[2019-02-13 05:59] LABS: INR 1.1; PROTHROMBIN TIME 11.8 SECONDS (9.7-12.2)
[2019-02-13 06:24] LABS: ALB/GLOB RATIO 1.3 (1.0-2.1); ALBUMIN 3.2 g/dL (3.5-5.0); ALT/SGPT 53 U/L (21-72); AST/SGOT 71 U/L (17-59); BLOOD UREA NITROGEN 12 mg/dL (9-20); CALCIUM 7.9 mg/dl (8.6-10.4); GFR NON-AFRICAN AMERICAN > 60
[2019-02-13] MEDS: Levothyroxine 50 MCG TAB PO SCH (06:28)
[2019-02-13 08:16] LABS: BANDS 2 % (0-2); LYMPHOCYTE 8 % (20-40); MONOCYTE 15 % (0-10); NEUTROPHIL 75 % (50-75); TOTAL CELLS COUNTED 100
[2019-02-13 08:18] LABS: ANISOCYTOSIS SLIGHT; PLATELET ESTIMATE NORMAL (NORMAL)
[2019-02-13 08:19] LABS: HYPOCHROMIC SLIGHT; POLYCHROMIC SLIGHT
[2019-02-13] MEDS: Magnesium Hydroxide Susp 30 ml UD PO SCH (11:15)
[2019-02-13] MEDS ORDERED: Albuterol-Ipratrop 3 mg / 0.5 (3 ml) UD INH STA (11:33)
--- NOTE | 2019-02-13 12:06 | CP.PCM.PN ---
<Lorene VelasquezCorazondanita - Last Filed: 02/13/19 12:06> Subjective - Date & Time of Evaluation Date of Evaluation: 02/13/19 Time of Evaluation: 12:03 - Subjective Subjective: Surgery: Dr. Harvey Patient complains of constipation and shortness of breath. He states he takes inhalers at home but has not gotten a breathing treatment since 4 am. He denies cough or sputum production. He is tolerating diet. He complains of slight pain to the right neck puncture site but otherwise no issues with the procedure site. Objective - Vital Signs/Intake and Output Vital Signs (last 24 hours): Temp Pulse Resp BP Pulse Ox 98.0 F 68 15 100/56 L 97 02/13/19 11:44 02/13/19 04:00 02/13/19 04:00 02/13/19 08:59 02/13/19 04:00 Intake and Output: 02/13/19 02/13/19 06:59 18:59 Intake Total 100 Balance 100 - Medications Medications: Current Medications Albuterol Sulfate (Albuterol 0.083% Inhal Otilia (2.5 Mg/3 Ml) Ud) 2.5 mg INH RQ4 [facility] Last Admin: 02/13/19 03:59 Dose: 2.5 mg Docusate Sodium (Colace) 100 mg PO BID [facility] Last Admin: 02/13/19 08:59 Dose: 100 mg Furosemide (Lasix) 80 mg PO DAILY [facility] Last Admin: 02/13/19 08:59 Dose: 80 mg Guaifenesin/Dextromethorphan (Robitussin Dm) 10 ml PO Q4H PRN PRN Reason: Cough and congestion Heparin Sodium/Sodium Chloride (Heparin 60705 Units/250ml 1/2 Normal Saline) 25,000 units in 250 mls @ 10.792 mls/hr IV .[id number] PRN; Protocol PRN Reason: PROTOCOL Last Admin: 02/10/19 18:20 Dose: 16 units/kg/hr, 10.792 mls/hr Lactulose (Enulose) 30 gm PO DAILY [facility] Levothyroxine Sodium (Synthroid) 50 mcg PO DAILY@0630 [facility] Last Admin: 02/13/19 06:28 Dose: 50 mcg Magnesium Hydroxide (Milk Of Magnesia) 30 ml PO DAILY [facility] Stop: 02/15/19 10:01 Midodrine (Proamatine) 2.5 mg PO Q8 PRN PRN Reason: SBP 90 or less Mineral Oil (Mineral Oil 30ml) 30 ml PO DAILY [facility] Prednisone (Prednisone Tab) 5 mg PO DAILY [facility] Last Admin: 02/13/19 09:02 Dose: 5 mg Rifaximin (Xifaxan) 550 mg PO Q12 [facility]; Protocol Last Admin: 02/13/19 08:59 Dose: 550 mg Spironolactone (Aldactone) 50 mg PO QD7 [facility] Last Admin: 02/08/19 09:49 Dose: 50 mg Tramadol HCl (Ultram) 50 mg PO Q6 PRN PRN Reason: pain Last Admin: 02/12/19 02:28 Dose: 50 mg Warfarin Sodium (Coumadin) 10 mg PO 1800 [facility] Stop: 02/13/19 18:01 Zolpidem Tartrate (Ambien) 5 mg PO HS [facility] Last Admin: 02/12/19 22:06 Dose: 5 mg - Labs Labs: 02/13/19 05:47 02/13/19 05:47 PT 11.8 SECONDS (9.7-12.2) 02/13/19 05:47 INR 1.1 02/13/19 05:47 APTT 30 SECONDS (21-34) 02/12/19 12:28 - Constitutional Appears: Chronically Ill - Head Exam Head Exam: ATRAUMATIC, NORMOCEPHALIC - ENT Exam ENT Exam: Mucous Membranes Dry - Neck Exam Additional comments: right IJ dressing CDI, no hematoma. - Respiratory Exam Respiratory Exam: Rhonchi, Wheezes. absent: Accessory Muscle Use, Chest Wall Tenderness, Respiratory Distress - Cardiovascular Exam Cardiovascular Exam: RRR - GI/Abdominal Exam GI & Abdominal Exam: Distended, Soft. absent: Tenderness Assessment and Plan - Assessment and Plan (Free Text) Assessment: 73M s/p TIPS POD#2 Plan: - duonebs stat and Q4h, CXR - bridge anti-coag back to Coumadin, keep heparin gtt - lactulose and rifoxamin - milk of mag colace - f/u tele transfer - OOB as tolerated - f/u U/S - discussed w/ attending AKWhite PGY4 <Haroldo Fernandez - Last Filed: 02/14/19 21:46> Objective - Vital Signs/Intake and Output Vital Signs (last 24 hours): Temp Pulse Resp BP Pulse Ox 97.5 F L 63 20 101/61 100 02/14/19 16:00 02/14/19 16:00 02/14/19 16:00 02/14/19 16:00 02/14/19 16:00 Intake and Output: 02/14/19 02/15/19 18:59 06:59 Intake Total 732.4 Balance 732.4 - Medications Medications: Current Medications Albuterol Sulfate (Albuterol 0.083% Inhal Otilia (2.5 Mg/3 Ml) Ud) 2.5 mg INH RQ4 [facility] Last Admin: 02/14/19 19:17 Dose: 2.5 mg Docusate Sodium (Colace) 100 mg PO BID [facility] Last Admin: 02/14/19 17:40 Dose: 100 mg Furosemide (Lasix) 80 mg PO DAILY [facility] Last Admin: 02/14/19 10:00 Dose: 80 mg Guaifenesin/Dextromethorphan (Robitussin Dm) 10 ml PO Q4H PRN PRN Reason: Cough and congestion Heparin Sodium/Sodium Chloride (Heparin 59307 Units/250ml 1/2 Normal Saline) 25,000 units in 250 mls @ 11.48 mls/hr IV .[id number] PRN; Protocol PRN Reason: PROTOCOL Last Admin: 02/14/19 15:29 Dose: 18 units/kg/hr, 11.48 mls/hr Lactulose (Enulose) 30 gm PO DAILY [facility] Last Admin: 02/14/19 10:01 Dose: 30 gm Levothyroxine Sodium (Synthroid) 50 mcg PO DAILY@0630 [facility] Last Admin: 02/14/19 05:52 Dose: 50 mcg Magnesium Hydroxide (Milk Of Magnesia) 30 ml PO DAILY [facility] Stop: 02/15/19 10:01 Last Admin: 02/14/19 11:15 Dose: Not Given Midodrine (Proamatine) 2.5 mg PO Q8 PRN PRN Reason: SBP 90 or less Mineral Oil (Mineral Oil 30ml) 30 ml PO DAILY [facility] Last Admin: 02/14/19 10:19 Dose: 30 ml Prednisone (Prednisone Tab) 5 mg PO DAILY [facility] Last Admin: 02/14/19 10:20 Dose: 5 mg Rifaximin (Xifaxan) 550 mg PO Q12 [facility]; Protocol Last Admin: 02/14/19 21:38 Dose: 550 mg Spironolactone (Aldactone) 50 mg PO QD7 [facility] Last Admin: 02/08/19 09:49 Dose: 50 mg Tramadol HCl (Ultram) 50 mg PO Q6 PRN PRN Reason: pain Last Admin: 02/14/19 19:47 Dose: 50 mg Zolpidem Tartrate (Ambien) 5 mg PO HS [facility] Last Admin: 02/14/19 21:37 Dose: 5 mg - Labs Labs: 02/14/19 06:10 02/14/19 06:10 PT 13.6 SECONDS (9.7-12.2) H 02/14/19 06:10 INR 1.2 02/14/19 06:10 APTT 72 SECONDS (21-34) H D 02/14/19 06:10 Assessment and Plan - Assessment and Plan (Free Text) Plan: All medical record entries made by the resident were at my direction. I have reviewed the chart and agree that the record accurately reflects my personal performance of the history, physical exam, medical decision making.
--- NOTE | 2019-02-13 14:05 | US ---
HISTORY: s/p TIPS COMPARISON: CT liver protocol performed 02/04/19 TECHNIQUE: Sonographic evaluation of the abdomen. FINDINGS: Examination limited by bowel gas, portable technique, and patient inability to breath hold. LIVER: Measures 17.1 cm in sagittal dimension. Nodular hepatic contour consistent with cirrhosis. Echogenic liver may be seen in setting of hepatic parenchymal disease or fatty infiltration. Liver mass demonstrated on CT is not well appreciated on the current study. No intrahepatic bile duct dilatation. Small abdominal ascites. Limited visualization of TIPS stent which appears patent. Velocities within the TIPS stent measure 129 centimeters/second proximally, 140.5 centimeters/second in the midportion, and 184.3 cm distally. GALLBLADDER: Cholecystectomy. COMMON BILE DUCT: Measures 6 mm. PANCREAS: Not well visualized. RIGHT KIDNEY: Measures 10.8 x 4.8 x 5.4 cm. No obstructing calculus or hydronephrosis identified. LEFT KIDNEY: Measures 9.6 x 5.3 x 5.3 cm. No obstructing calculus or hydronephrosis identified. 0.9 x 0.9 x 0.7 cm lower pole cyst. SPLEEN: Measures approximately 9.6 cm. AORTA: Limited views appear unremarkable. IVC: Limited views appear unremarkable. OTHER FINDINGS: None. IMPRESSION: Cirrhotic appearing liver as above. Liver mass demonstrated on CT is not adequately visualized on the current study. Small abdominal ascites. Limited visualization of TIPS stent which appears patent. Velocities within the TIPS stent measure 129 centimeters/second proximally, 140.5 centimeters/second in the midportion, and 184.3 cm distally. 0.9 cm left lower pole renal cyst. Cholecystectomy. Preliminary impression was provided by [employer].
--- NOTE | 2019-02-13 14:27 | RAD ---
Date of service: 02/13/2019 HISTORY: shortness of breath COMPARISON: Portable chest 02/02/2019. TECHNIQUE: 1 view obtained. FINDINGS: LUNGS: Patchy airspace disease is developed at the right base with none on the left. PLEURA: No pneumothorax bilaterally or left pleural effusion with trace right pleural effusion is felt to be present. CARDIOVASCULAR: Calcific atherosclerotic changes are seen related to the thoracic aorta. Right central venous catheter appears to have been removed. Clinically correlate. Mitral and aortic valve replacement components are identified as well as AICD/pacemaker once again. Normal cardiac size. No pulmonary vascular congestion. OSSEOUS STRUCTURES: No significant abnormalities. VISUALIZED UPPER ABDOMEN: Normal. OTHER FINDINGS: None. IMPRESSION: Interval right basilar atelectasis or infiltrate. Right central venous line apparently removed. Clinically correlate. Examination otherwise stable in the interval.
[2019-02-13] MEDS ORDERED: Heparin25000 units/250ml 1/2NS 25,000 UNITS/250 ML BAG IV PRN (15:00)
[2019-02-13] MEDS: Heparin25000 units/250ml 1/2NS 25,000 UNITS/250 ML BAG IV PRN (22:47)
[2019-02-14] MEDS: Albuterol 0.083% Inhal Sol (2.5 mg/3 mL) UD INH SCH ×6 (00:05→19:17)
[2019-02-14] MEDS: Levothyroxine 50 MCG TAB PO SCH (05:52)
[2019-02-14 06:24] LABS: BASO # 0.1 K/uL (0.0-0.2); BASO % 0.7 % (0.0-2.0); EOS # 0.3 K/uL (0.0-0.7); EOS % 2.7 % (0.0-4.0); HEMOGLOBIN 8.2 g/dL (12.0-18.0); LYMPH % 8.3 % (20.0-40.0); MEAN CELL VOLUME 86.5 fL (80.0-94.0); MEAN CORPUSCULAR HEMOGLOBIN 27.4 pg (27.0-31.0); MEAN CORPUSCULAR HGB CONC 31.7 g/dL (33.0-37.0); MEAN PLATELET VOLUME 7.9 fL (7.2-11.7); MONO # 1.2 K/uL (0.0-0.8); MONO % 9.8 % (0.0-10.0); NEUT # 9.9 K/uL (1.8-7.0); NEUT % 78.5 % (50.0-75.0); PLATELET COUNT 154 K/uL (130-400); RBC 2.98 Mil/uL (4.40-5.90); RED CELL DISTRIBUTION WIDTH 20.8 % (11.5-14.5); WHITE BLOOD COUNT 12.6 K/uL (4.8-10.8)
[2019-02-14 06:39] LABS: ALB/GLOB RATIO 1.3 (1.0-2.1); ALBUMIN 3.2 g/dL (3.5-5.0); ALT/SGPT 42 U/L (21-72); AST/SGOT 63 U/L (17-59); BLOOD UREA NITROGEN 11 mg/dL (9-20); CALCIUM 7.9 mg/dl (8.6-10.4); GFR NON-AFRICAN AMERICAN > 60
[2019-02-14 06:42] LABS: INR 1.2; PROTHROMBIN TIME 13.6 SECONDS (9.7-12.2)
[2019-02-14 08:54] LABS: EOSINOPHIL 2 % (0-4); LYMPHOCYTE 6 % (20-40); MONOCYTE 10 % (0-10); NEUTROPHIL 82 % (50-75); TOTAL CELLS COUNTED 100
[2019-02-14 08:55] LABS: ANISOCYTOSIS SLIGHT; HYPOCHROMIC SLIGHT; PLATELET ESTIMATE NORMAL (NORMAL); POLYCHROMIC SLIGHT
[2019-02-14] MEDS: Magnesium Hydroxide Susp 30 ml UD PO SCH (11:15)
[2019-02-14] MEDS: Heparin25000 units/250ml 1/2NS 25,000 UNITS/250 ML BAG IV PRN (15:29)
--- NOTE | 2019-02-14 20:10 | CP.PCM.PN ---
<Anselmo Coker - Last Filed: 02/14/19 20:06> Subjective - Date & Time of Evaluation Date of Evaluation: 02/14/19 Time of Evaluation: 20:06 - Subjective Subjective: General Surgery Note for Dr. Harvey Patient seen and examined at bedside. Patient tolerating diet. He also endorses BM and passing flatus. Continuing bridge to coumadin with dose today. Objective - Vital Signs/Intake and Output Vital Signs (last 24 hours): Temp Pulse Resp BP Pulse Ox 97.5 F L 63 20 101/61 100 02/14/19 16:00 02/14/19 16:00 02/14/19 16:00 02/14/19 16:00 02/14/19 16:00 Intake and Output: 02/14/19 02/15/19 18:59 06:59 Intake Total 732.4 Balance 732.4 - Medications Medications: Current Medications Albuterol Sulfate (Albuterol 0.083% Inhal Otilia (2.5 Mg/3 Ml) Ud) 2.5 mg INH RQ4 [facility] Last Admin: 02/14/19 19:17 Dose: 2.5 mg Docusate Sodium (Colace) 100 mg PO BID [facility] Last Admin: 02/14/19 17:40 Dose: 100 mg Furosemide (Lasix) 80 mg PO DAILY [facility] Last Admin: 02/14/19 10:00 Dose: 80 mg Guaifenesin/Dextromethorphan (Robitussin Dm) 10 ml PO Q4H PRN PRN Reason: Cough and congestion Heparin Sodium/Sodium Chloride (Heparin 09438 Units/250ml 1/2 Normal Saline) 25,000 units in 250 mls @ 11.48 mls/hr IV .[id number] PRN; Protocol PRN Reason: PROTOCOL Last Admin: 02/14/19 15:29 Dose: 18 units/kg/hr, 11.48 mls/hr Lactulose (Enulose) 30 gm PO DAILY [facility] Last Admin: 02/14/19 10:01 Dose: 30 gm Levothyroxine Sodium (Synthroid) 50 mcg PO DAILY@0630 [facility] Last Admin: 02/14/19 05:52 Dose: 50 mcg Magnesium Hydroxide (Milk Of Magnesia) 30 ml PO DAILY [facility] Stop: 02/15/19 10:01 Last Admin: 02/14/19 11:15 Dose: Not Given Midodrine (Proamatine) 2.5 mg PO Q8 PRN PRN Reason: SBP 90 or less Mineral Oil (Mineral Oil 30ml) 30 ml PO DAILY [facility] Last Admin: 02/14/19 10:19 Dose: 30 ml Prednisone (Prednisone Tab) 5 mg PO DAILY [facility] Last Admin: 02/14/19 10:20 Dose: 5 mg Rifaximin (Xifaxan) 550 mg PO Q12 [facility]; Protocol Last Admin: 02/14/19 10:13 Dose: 550 mg Spironolactone (Aldactone) 50 mg PO QD7 [facility] Last Admin: 02/08/19 09:49 Dose: 50 mg Tramadol HCl (Ultram) 50 mg PO Q6 PRN PRN Reason: pain Last Admin: 02/14/19 19:47 Dose: 50 mg Zolpidem Tartrate (Ambien) 5 mg PO HS [facility] Last Admin: 02/13/19 22:00 Dose: 5 mg - Labs Labs: 02/14/19 06:10 02/14/19 06:10 PT 13.6 SECONDS (9.7-12.2) H 02/14/19 06:10 INR 1.2 02/14/19 06:10 APTT 72 SECONDS (21-34) H D 02/14/19 06:10 - Additional Findings Additional findings: - Constitutional Appears: Chronically Ill - Head Exam Head Exam: ATRAUMATIC, NORMOCEPHALIC - ENT Exam ENT Exam: Mucous Membranes Dry - Neck Exam Additional comments: right IJ dressing CDI, no hematoma. - Respiratory Exam Respiratory Exam: Normal Breathing Pattern - Cardiovascular Exam Cardiovascular Exam: RRR - GI/Abdominal Exam GI & Abdominal Exam: Distended, Soft. absent: Tenderness Assessment and Plan - Assessment and Plan (Free Text) Assessment: 73M s/p TIPS POD#3 Plan: - bridging Coumadin with heparin gtt - f/u PT/INR - lactulose and rifoxamin - Midodrine - Diuretics for ascites management - OOB as tolerated - duonebs Q4h - discussed with Dr. Jim Coker PGY2 <Haroldo Fernandez - Last Filed: 02/14/19 21:45> Objective - Vital Signs/Intake and Output Vital Signs (last 24 hours): Temp Pulse Resp BP Pulse Ox 97.5 F L 63 20 101/61 100 02/14/19 16:00 02/14/19 16:00 02/14/19 16:00 02/14/19 16:00 02/14/19 16:00 Intake and Output: 02/14/19 02/15/19 18:59 06:59 Intake Total 732.4 Balance 732.4 - Medications Medications: Current Medications Albuterol Sulfate (Albuterol 0.083% Inhal Otilia (2.5 Mg/3 Ml) Ud) 2.5 mg INH RQ4 [facility] Last Admin: 02/14/19 19:17 Dose: 2.5 mg Docusate Sodium (Colace) 100 mg PO BID [facility] Last Admin: 02/14/19 17:40 Dose: 100 mg Furosemide (Lasix) 80 mg PO DAILY [facility] Last Admin: 02/14/19 10:00 Dose: 80 mg Guaifenesin/Dextromethorphan (Robitussin Dm) 10 ml PO Q4H PRN PRN Reason: Cough and congestion Heparin Sodium/Sodium Chloride (Heparin 00367 Units/250ml 1/2 Normal Saline) 25,000 units in 250 mls @ 11.48 mls/hr IV .[id number] PRN; Protocol PRN Reason: PROTOCOL Last Admin: 02/14/19 15:29 Dose: 18 units/kg/hr, 11.48 mls/hr Lactulose (Enulose) 30 gm PO DAILY [facility] Last Admin: 02/14/19 10:01 Dose: 30 gm Levothyroxine Sodium (Synthroid) 50 mcg PO DAILY@0630 [facility] Last Admin: 02/14/19 05:52 Dose: 50 mcg Magnesium Hydroxide (Milk Of Magnesia) 30 ml PO DAILY [facility] Stop: 02/15/19 10:01 Last Admin: 02/14/19 11:15 Dose: Not Given Midodrine (Proamatine) 2.5 mg PO Q8 PRN PRN Reason: SBP 90 or less Mineral Oil (Mineral Oil 30ml) 30 ml PO DAILY [facility] Last Admin: 02/14/19 10:19 Dose: 30 ml Prednisone (Prednisone Tab) 5 mg PO DAILY [facility] Last Admin: 02/14/19 10:20 Dose: 5 mg Rifaximin (Xifaxan) 550 mg PO Q12 [facility]; Protocol Last Admin: 02/14/19 21:38 Dose: 550 mg Spironolactone (Aldactone) 50 mg PO QD7 [facility] Last Admin: 02/08/19 09:49 Dose: 50 mg Tramadol HCl (Ultram) 50 mg PO Q6 PRN PRN Reason: pain Last Admin: 02/14/19 19:47 Dose: 50 mg Zolpidem Tartrate (Ambien) 5 mg PO HS [facility] Last Admin: 02/14/19 21:37 Dose: 5 mg - Labs Labs: 02/14/19 06:10 02/14/19 06:10 PT 13.6 SECONDS (9.7-12.2) H 02/14/19 06:10 INR 1.2 02/14/19 06:10 APTT 72 SECONDS (21-34) H D 02/14/19 06:10 Assessment and Plan - Assessment and Plan (Free Text) Assessment: All medical record entries made by the resident were at my direction. I have reviewed the chart and agree that the record accurately reflects my personal performance of the history, physical exam, medical decision making. No encephalopathy post TIPSS Patient needs strict I&O's and daily weight continue diuretics
[2019-02-15] MEDS: Albuterol 0.083% Inhal Sol (2.5 mg/3 mL) UD INH SCH ×6 (00:24→20:44)
[2019-02-15] MEDS: Levothyroxine 50 MCG TAB PO SCH (05:48)
[2019-02-15 07:20] LABS: BASO # 0.1 K/uL (0.0-0.2); BASO % 1.1 % (0.0-2.0); EOS # 0.3 K/uL (0.0-0.7); EOS % 3.1 % (0.0-4.0); HEMOGLOBIN 8.3 g/dL (12.0-18.0); LYMPH # 1.2 K/uL (1.0-4.3); LYMPH % 10.6 % (20.0-40.0); MEAN CELL VOLUME 86.7 fL (80.0-94.0); MEAN CORPUSCULAR HEMOGLOBIN 27.5 pg (27.0-31.0); MEAN CORPUSCULAR HGB CONC 31.7 g/dL (33.0-37.0); MEAN PLATELET VOLUME 8.9 fL (7.2-11.7); MONO # 0.7 K/uL (0.0-0.8); MONO % 6.5 % (0.0-10.0); NEUT # 8.9 K/uL (1.8-7.0); NEUT % 78.7 % (50.0-75.0); NRBC % 0.1 % (0.0-2.0); RBC 3.03 Mil/uL (4.40-5.90); RED CELL DISTRIBUTION WIDTH 21.3 % (11.5-14.5); WHITE BLOOD COUNT 11.3 K/uL (4.8-10.8)
[2019-02-15 07:33] LABS: INR 1.3; PROTHROMBIN TIME 14.7 SECONDS (9.7-12.2)
--- NOTE | 2019-02-15 08:40 | CP.PCM.PN ---
<Galina Wolfe - Last Filed: 02/15/19 08:44> Subjective - Date & Time of Evaluation Date of Evaluation: 02/15/19 Time of Evaluation: 07:30 - Subjective Subjective: HPB progress note for Dr. Harvey Patient seen and examined this am at bedside. He has no complaints at this time. Having Bm and passing flatus. Objective - Vital Signs/Intake and Output Vital Signs (last 24 hours): Temp Pulse Resp BP Pulse Ox 98 F 62 20 118/73 100 02/15/19 07:59 02/15/19 07:59 02/15/19 07:59 02/15/19 07:59 02/15/19 07:59 Intake and Output: 02/15/19 02/15/19 06:59 18:59 Intake Total 441.2 291.2 Output Total 2 Balance 439.2 291.2 - Medications Medications: Current Medications Albuterol Sulfate (Albuterol 0.083% Inhal Otilia (2.5 Mg/3 Ml) Ud) 2.5 mg INH RQ4 [facility] Last Admin: 02/15/19 07:42 Dose: 2.5 mg Docusate Sodium (Colace) 100 mg PO BID [facility] Last Admin: 02/14/19 17:40 Dose: 100 mg Furosemide (Lasix) 80 mg PO DAILY [facility] Last Admin: 02/14/19 10:00 Dose: 80 mg Guaifenesin/Dextromethorphan (Robitussin Dm) 10 ml PO Q4H PRN PRN Reason: Cough and congestion Heparin Sodium/Sodium Chloride (Heparin 02183 Units/250ml 1/2 Normal Saline) 25,000 units in 250 mls @ 11.48 mls/hr IV .[id number] PRN; Protocol PRN Reason: PROTOCOL Last Admin: 02/14/19 15:29 Dose: 18 units/kg/hr, 11.48 mls/hr Lactulose (Enulose) 30 gm PO DAILY [facility] Last Admin: 02/14/19 10:01 Dose: 30 gm Levothyroxine Sodium (Synthroid) 50 mcg PO DAILY@0630 [facility] Last Admin: 02/15/19 05:48 Dose: 50 mcg Magnesium Hydroxide (Milk Of Magnesia) 30 ml PO DAILY [facility] Stop: 02/15/19 10:01 Last Admin: 04/04/19 11:15 Dose: Not Given Midodrine (Proamatine) 2.5 mg PO Q8 PRN PRN Reason: SBP 90 or less Mineral Oil (Mineral Oil 30ml) 30 ml PO DAILY [facility] Last Admin: 02/14/19 10:19 Dose: 30 ml Prednisone (Prednisone Tab) 5 mg PO DAILY [facility] Last Admin: 02/14/19 10:20 Dose: 5 mg Rifaximin (Xifaxan) 550 mg PO Q12 [facility]; Protocol Last Admin: 02/14/19 21:38 Dose: 550 mg Spironolactone (Aldactone) 50 mg PO QD7 [facility] Last Admin: 02/08/19 09:49 Dose: 50 mg Tramadol HCl (Ultram) 50 mg PO Q6 PRN PRN Reason: pain Last Admin: 02/15/19 03:39 Dose: 50 mg Zolpidem Tartrate (Ambien) 5 mg PO HS [facility] Last Admin: 02/14/19 21:37 Dose: 5 mg - Labs Labs: 02/15/19 07:03 02/14/19 06:10 PT 14.7 SECONDS (9.7-12.2) H 02/15/19 07:03 INR 1.3 02/15/19 07:03 APTT 66 SECONDS (21-34) H D 02/15/19 07:03 - Constitutional Appears: Well, Non-toxic, No Acute Distress, Cachectic - Head Exam Head Exam: ATRAUMATIC, NORMOCEPHALIC - Eye Exam Eye Exam: EOMI - ENT Exam ENT Exam: Mucous Membranes Dry - Respiratory Exam Respiratory Exam: NORMAL BREATHING PATTERN - Cardiovascular Exam Cardiovascular Exam: REGULAR RHYTHM - GI/Abdominal Exam GI & Abdominal Exam: Distended (corey ascites), Soft. absent: Guarding, Tenderness, Rebound - Extremities Exam Extremities Exam: absent: Calf Tenderness, Pedal Edema - Neurological Exam Neurological Exam: Alert, Awake, Oriented x3 - Psychiatric Exam Psychiatric exam: Normal Affect, Normal Mood - Skin Skin Exam: Dry, Intact, Normal Color, Warm Assessment and Plan - Assessment and Plan (Free Text) Assessment: 73 yr old male with ETOH cirrhosis s/p TIPS procedure with IR 4/1, POD 4 Plan: - bridging Coumadin with heparin gtt - f/u PT/INR - lactulose and rifoxamin - Midodrine - Diuretics for ascites management - OOB as tolerated - duonebs Q4h - strict i&O - daily weights - discussed with Dr. Fernandez <Haroldo Fernandez - Last Filed: 02/18/19 17:24> Objective - Vital Signs/Intake and Output Vital Signs (last 24 hours): Temp Pulse Resp BP Pulse Ox 97.7 F 69 20 108/63 95 02/18/19 07:56 02/18/19 07:56 02/18/19 07:56 02/18/19 15:00 02/18/19 07:56 Intake and Output: 02/18/19 02/18/19 06:59 18:59 Intake Total 701.6 390.4 Output Total 1650 Balance -948.4 390.4 - Medications Medications: Current Medications Albuterol Sulfate (Albuterol 0.083% Inhal Otilia (2.5 Mg/3 Ml) Ud) 2.5 mg INH RQ4 [facility] Last Admin: 02/18/19 12:59 Dose: 2.5 mg Albuterol/Ipratropium (Duoneb 3 Mg/0.5 Mg (3 Ml) Ud) 3 ml INH RQ4 [facility] Last Admin: 02/18/19 16:37 Dose: 3 ml Docusate Sodium (Colace) 100 mg PO BID [facility] Last Admin: 02/18/19 11:00 Dose: 100 mg Furosemide (Lasix) 40 mg PO DAILY [facility] Last Admin: 02/18/19 15:00 Dose: 40 mg Guaifenesin/Dextromethorphan (Robitussin Dm) 10 ml PO Q4H PRN PRN Reason: Cough and congestion Lactulose (Enulose) 30 gm PO DAILY [facility] Last Admin: 02/18/19 11:00 Dose: 30 gm Midodrine (Proamatine) 2.5 mg PO TID [facility] Last Admin: 02/18/19 15:00 Dose: 2.5 mg Mineral Oil (Mineral Oil 30ml) 30 ml PO DAILY [facility] Last Admin: 02/18/19 11:00 Dose: 30 ml Prednisone (Prednisone) 2.5 mg PO DAILY [facility] Last Admin: 02/18/19 15:22 Dose: Not Given Spironolactone (Aldactone) 100 mg PO DAILY [facility] Last Admin: 02/18/19 15:00 Dose: 100 mg Warfarin Sodium (Coumadin) 2.5 mg PO 1800 [facility] Stop: 02/20/19 18:01 Zolpidem Tartrate (Ambien) 5 mg PO HS [facility] Last Admin: 02/17/19 23:13 Dose: Not Given - Labs Labs: 02/18/19 06:44 02/18/19 06:44 PT 21.4 SECONDS (9.7-12.2) H 02/18/19 06:44 INR 2.0 02/18/19 06:44 APTT 82 SECONDS (21-34) H D 02/18/19 06:44 Assessment and Plan - Assessment and Plan (Free Text) Plan: All medical record entries made by the resident were at my direction. I have reviewed the chart and agree that the record accurately reflects my personal performance of the history, physical exam, and medical decision making.
[2019-02-15] MEDS: Magnesium Hydroxide Susp 30 ml UD PO SCH (10:07)
--- NOTE | 2019-02-15 10:56 | RAD ---
Date of service: 02/15/2019 HISTORY: short of breath COMPARISON: Portable chest 02/13/2019. TECHNIQUE: 1 view obtained. FINDINGS: LUNGS: Persistent patchy atelectasis or infiltrate right base, remaining small in overall volume. No new infiltrate bilaterally. PLEURA: Trace right pleural effusion not excluded. None is seen at the left. No pneumothorax bilaterally. CARDIOVASCULAR: Calcific atherosclerotic changes are seen related to the thoracic aorta. Normal cardiac size. No pulmonary vascular congestion. AICD/pacemaker again evident unchanged in appearance as well as prosthetic cardiac valves and sternotomy wires. OSSEOUS STRUCTURES: Sternotomy wires noted. VISUALIZED UPPER ABDOMEN: Normal. OTHER FINDINGS: None. IMPRESSION: No interval change in limited right basilar atelectasis or infiltrate with trace right pleural effusion question. No interval cardiopulmonary disease appreciable.
[2019-02-15] MEDS: Heparin25000 units/250ml 1/2NS 25,000 UNITS/250 ML BAG IV PRN (14:48)
[2019-02-16] MEDS: Albuterol 0.083% Inhal Sol (2.5 mg/3 mL) UD INH SCH ×7 (00:55→23:40)
[2019-02-16] MEDS: Levothyroxine 50 MCG TAB PO SCH (05:38)
[2019-02-16 07:29] LABS: INR 1.8; PROTHROMBIN TIME 20.1 SECONDS (9.7-12.2)
[2019-02-16 07:39] LABS: BASO # 0.1 K/uL (0.0-0.2); BASO % 1.2 % (0.0-2.0); EOS # 0.3 K/uL (0.0-0.7); EOS % 3.2 % (0.0-4.0); HEMOGLOBIN 8.3 g/dL (12.0-18.0); LYMPH # 1.1 K/uL (1.0-4.3); LYMPH % 11.2 % (20.0-40.0); MEAN CELL VOLUME 86.9 fL (80.0-94.0); MEAN CORPUSCULAR HEMOGLOBIN 28.2 pg (27.0-31.0); MEAN CORPUSCULAR HGB CONC 32.5 g/dL (33.0-37.0); MEAN PLATELET VOLUME 9.1 fL (7.2-11.7); MONO # 0.7 K/uL (0.0-0.8); NEUT # 7.4 K/uL (1.8-7.0); NEUT % 77.4 % (50.0-75.0); NRBC % 0.3 % (0.0-2.0); RBC 2.95 Mil/uL (4.40-5.90); RED CELL DISTRIBUTION WIDTH 21.4 % (11.5-14.5); WHITE BLOOD COUNT 9.5 K/uL (4.8-10.8)
[2019-02-16 07:44] LABS: ALB/GLOB RATIO 1.3 (1.0-2.1); ALBUMIN 3.4 g/dL (3.5-5.0); ALT/SGPT 29 U/L (21-72); AST/SGOT 42 U/L (17-59); BLOOD UREA NITROGEN 16 mg/dL (9-20); CALCIUM 8.3 mg/dl (8.6-10.4); GFR NON-AFRICAN AMERICAN > 60
--- NOTE | 2019-02-16 08:19 | CP.PCM.PN ---
<Galina Wolfe - Last Filed: 02/16/19 08:21> Subjective - Date & Time of Evaluation Date of Evaluation: 02/16/19 Time of Evaluation: 07:17 - Subjective Subjective: HPB surgery progress note for Dr. Harvey Patient states he is feeling about the same this morning. patient denies ALVAREZ, SOB, CP, increased abdominal pain, f/c, n/v, stool changes and dysuria. Pt endorses BM and flatus. Objective - Vital Signs/Intake and Output Vital Signs (last 24 hours): Temp Pulse Resp BP Pulse Ox 97.8 F 64 20 107/57 L 95 02/16/19 00:00 02/16/19 00:00 02/16/19 00:00 02/16/19 00:00 02/16/19 00:00 Intake and Output: 02/16/19 02/16/19 06:59 18:59 Intake Total 882.4 Balance 882.4 - Medications Medications: Current Medications Albuterol Sulfate (Albuterol 0.083% Inhal Otilia (2.5 Mg/3 Ml) Ud) 2.5 mg INH RQ4 [facility] Last Admin: 02/16/19 04:49 Dose: Not Given Docusate Sodium (Colace) 100 mg PO BID [facility] Last Admin: 02/15/19 17:09 Dose: 100 mg Furosemide (Lasix) 80 mg PO DAILY [facility] Last Admin: 02/15/19 10:08 Dose: 80 mg Guaifenesin/Dextromethorphan (Robitussin Dm) 10 ml PO Q4H PRN PRN Reason: Cough and congestion Heparin Sodium/Sodium Chloride (Heparin 04584 Units/250ml 1/2 Normal Saline) 25,000 units in 250 mls @ 11.539 mls/hr IV .[id number] PRN; Protocol PRN Reason: ADJUST RATE PER PROTOCOL Lactulose (Enulose) 30 gm PO DAILY [facility] Last Admin: 02/15/19 10:07 Dose: 30 gm Levothyroxine Sodium (Synthroid) 50 mcg PO DAILY@0630 [facility] Last Admin: 02/16/19 05:38 Dose: 50 mcg Midodrine (Proamatine) 2.5 mg PO Q8 PRN PRN Reason: SBP 90 or less Mineral Oil (Mineral Oil 30ml) 30 ml PO DAILY [facility] Last Admin: 02/15/19 10:07 Dose: 30 ml Prednisone (Prednisone Tab) 5 mg PO DAILY [facility] Last Admin: 02/15/19 10:09 Dose: 5 mg Spironolactone (Aldactone) 50 mg PO QD7 [facility] Last Admin: 02/08/19 09:49 Dose: 50 mg Tramadol HCl (Ultram) 50 mg PO Q6 PRN PRN Reason: pain Last Admin: 02/15/19 17:11 Dose: 50 mg Zolpidem Tartrate (Ambien) 5 mg PO HS [facility] Last Admin: 02/15/19 21:24 Dose: 5 mg - Labs Labs: 02/16/19 07:04 02/16/19 07:04 PT 20.1 SECONDS (9.7-12.2) H D 02/16/19 07:04 INR 1.8 D 02/16/19 07:04 APTT 100 SECONDS (21-34) H* D 02/16/19 07:04 - Constitutional Appears: Well, Non-toxic, No Acute Distress - Head Exam Head Exam: ATRAUMATIC, NORMOCEPHALIC - Eye Exam Eye Exam: EOMI - ENT Exam ENT Exam: Mucous Membranes Moist - Respiratory Exam Respiratory Exam: NORMAL BREATHING PATTERN - Cardiovascular Exam Cardiovascular Exam: REGULAR RHYTHM - GI/Abdominal Exam GI & Abdominal Exam: Distended (ascites), Soft. absent: Tenderness - Extremities Exam Extremities Exam: absent: Calf Tenderness, Pedal Edema - Neurological Exam Neurological Exam: Alert, Awake - Psychiatric Exam Psychiatric exam: Normal Affect, Normal Mood - Skin Skin Exam: Dry, Intact, Normal Color, Warm Assessment and Plan - Assessment and Plan (Free Text) Assessment: 73 M with ETOH liver cirrhosis s/p TIPS procedure, POD 5 Plan: - bridging Coumadin with heparin gtt - f/u PT/INR - lactulose and rifoxamin - Midodrine - Diuretics for ascites management - OOB as tolerated - duonebs Q4h PRN - strict i&O - daily weights - will discuss with Dr. Jim Wolfe, PGY 1 <Haroldo Fernandez - Last Filed: 02/18/19 17:06> Objective - Vital Signs/Intake and Output Vital Signs (last 24 hours): Temp Pulse Resp BP Pulse Ox 97.7 F 69 20 108/63 95 02/18/19 07:56 02/18/19 07:56 02/18/19 07:56 02/18/19 15:00 02/18/19 07:56 Intake and Output: 02/18/19 02/18/19 06:59 18:59 Intake Total 701.6 390.4 Output Total 1650 Balance -948.4 390.4 - Medications Medications: Current Medications Albuterol Sulfate (Albuterol 0.083% Inhal Otilia (2.5 Mg/3 Ml) Ud) 2.5 mg INH RQ4 [facility] Last Admin: 02/18/19 12:59 Dose: 2.5 mg Albuterol/Ipratropium (Duoneb 3 Mg/0.5 Mg (3 Ml) Ud) 3 ml INH RQ4 [facility] Last Admin: 02/18/19 16:37 Dose: 3 ml Docusate Sodium (Colace) 100 mg PO BID [facility] Last Admin: 02/18/19 11:00 Dose: 100 mg Furosemide (Lasix) 40 mg PO DAILY [facility] Last Admin: 02/18/19 15:00 Dose: 40 mg Guaifenesin/Dextromethorphan (Robitussin Dm) 10 ml PO Q4H PRN PRN Reason: Cough and congestion Lactulose (Enulose) 30 gm PO DAILY [facility] Last Admin: 02/18/19 11:00 Dose: 30 gm Midodrine (Proamatine) 2.5 mg PO TID [facility] Last Admin: 02/18/19 15:00 Dose: 2.5 mg Mineral Oil (Mineral Oil 30ml) 30 ml PO DAILY [facility] Last Admin: 02/18/19 11:00 Dose: 30 ml Prednisone (Prednisone) 2.5 mg PO DAILY [facility] Last Admin: 02/18/19 15:22 Dose: Not Given Spironolactone (Aldactone) 100 mg PO DAILY [facility] Last Admin: 02/18/19 15:00 Dose: 100 mg Warfarin Sodium (Coumadin) 2.5 mg PO 1800 [facility] Stop: 02/20/19 18:01 Zolpidem Tartrate (Ambien) 5 mg PO HS [facility] Last Admin: 02/17/19 23:13 Dose: Not Given - Labs Labs: 02/18/19 06:44 02/18/19 06:44 PT 21.4 SECONDS (9.7-12.2) H 04/08/19 06:44 INR 2.0 02/18/19 06:44 APTT 82 SECONDS (21-34) H D 02/18/19 06:44 Assessment and Plan - Assessment and Plan (Free Text) Plan: All medical record entries made by the resident were at my direction. I have reviewed the chart and agree that the record accurately reflects my personal performance of the history, physical exam, and medical decision making.
[2019-02-16] MEDS ORDERED: Heparin25000 units/250ml 1/2NS 25,000 UNITS/250 ML BAG IV PRN (08:45)
[2019-02-16] MEDS: Heparin25000 units/250ml 1/2NS 25,000 UNITS/250 ML BAG IV PRN (11:08)
--- NOTE | 2019-02-16 13:10 | US ---
Date of service: 02/16/2019 PROCEDURE: Ultrasound Doppler of the liver HISTORY: assesment of TIPS patency COMPARISON: Comparison is made to the previous study dated 02/12/[address] dated 01/30. TECHNIQUE: Ultrasound Doppler of the liver was performed. FINDINGS: The liver measures 17.13 centimeter demonstrates heterogeneous diffuse increased echogenicity. The common bile duct measures 5.8 millimeter. The TIPS is patent. The peak systolic velocity in the proximal portion of the TIPS is 175.4 centimeter/second in the midportion 152 centimeter per 2nd and in the distal portion 169 centimeter/second. The peak velocity in the left portal vein is 51.5 centimeter/second. The peak velocity in the mid portal vein is 61.8 centimeter/second. The hepatic veins are patent. Again seen is small to moderate amount of ascites in the abdomen. IMPRESSION: Patent TIPS. Patent portal and hepatic veins. Small to moderate amount of ascites.
[2019-02-16 17:00] LABS: INR 2.1
[2019-02-17] MEDS: Albuterol 0.083% Inhal Sol (2.5 mg/3 mL) UD INH SCH ×8 (03:11→23:50)
[2019-02-17] MEDS: Levothyroxine 50 MCG TAB PO SCH (06:21)
[2019-02-17 08:25] LABS: BASO # 0.1 K/uL (0.0-0.2); BASO % 1.4 % (0.0-2.0); EOS # 0.3 K/uL (0.0-0.7); EOS % 3.6 % (0.0-4.0); HEMOGLOBIN 8.7 g/dL (12.0-18.0); LYMPH # 0.9 K/uL (1.0-4.3); LYMPH % 11.3 % (20.0-40.0); MEAN CELL VOLUME 86.8 fL (80.0-94.0); MEAN CORPUSCULAR HEMOGLOBIN 27.9 pg (27.0-31.0); MEAN CORPUSCULAR HGB CONC 32.1 g/dL (33.0-37.0); MEAN PLATELET VOLUME 8.3 fL (7.2-11.7); MONO # 0.7 K/uL (0.0-0.8); NEUT # 6.1 K/uL (1.8-7.0); NEUT % 74.7 % (50.0-75.0); NRBC % 0.1 % (0.0-2.0); RBC 3.13 Mil/uL (4.40-5.90); RED CELL DISTRIBUTION WIDTH 21.5 % (11.5-14.5); WHITE BLOOD COUNT 8.1 K/uL (4.8-10.8)
[2019-02-17 08:42] LABS: ALB/GLOB RATIO 1.1 (1.0-2.1); ALBUMIN 3.3 g/dL (3.5-5.0); ALT/SGPT 31 U/L (21-72); AST/SGOT 36 U/L (17-59); BLOOD UREA NITROGEN 15 mg/dL (9-20); CALCIUM 8.6 mg/dl (8.6-10.4); GFR NON-AFRICAN AMERICAN > 60
--- NOTE | 2019-02-17 11:54 | CP.PCM.PN ---
Subjective - Date & Time of Evaluation Date of Evaluation: 02/17/19 Time of Evaluation: 11:54 - Subjective Subjective: Pulmonary follow up, Covering Dr Pritchett The Patient was seen and examined at the bedside, Medical records reviewed, and management issues were discussed and formulated with the house staff. Events reviewed Patient is 73 years old male with past medical history of hypertension, hypercholesterolemia, cardiomyopathy, coronary artery disease a status post CABG, status post AICD, history of alcoholic cirrhosis, GERD and chronic obstructive pulmonary disease Who initially presented to the emergency room for possible portosystemic shunt Patient with recent admission to outside hospital for hepatic encephalopathy from decompensated liver failure Patient states that he is feeling better today, abdominal distention is impro ving He was seen sitting in a chair mildly tachypneic but not in apparent respiratory distress Patient hypoxemic to 86% on room air, he was placed on 2 L nasal cannula with saturation up to about 92%. Patient also has pulmonary hypertension associated with liver cirrhosis with portal hypertension Patient is alert, awake and oriented Afebrile Less dyspnea, no fever, chills or chest pain Objective - Vital Signs/Intake and Output Vital Signs (last 24 hours): Temp Pulse Resp BP Pulse Ox 98.4 F 78 20 144/75 96 02/17/19 08:00 02/17/19 08:00 02/17/19 08:00 02/17/19 09:53 02/17/19 08:00 Intake and Output: 02/17/19 02/17/19 06:59 18:59 Intake Total 380.8 320.8 Output Total 400 Balance -19.2 320.8 - Medications Medications: Current Medications Albuterol Sulfate (Albuterol 0.083% Inhal Otilia (2.5 Mg/3 Ml) Ud) 2.5 mg INH RQ4 [facility] Last Admin: 02/17/19 10:40 Dose: 2.5 mg Docusate Sodium (Colace) 100 mg PO BID [facility] Last Admin: 02/17/19 09:53 Dose: 100 mg Furosemide (Lasix) 80 mg PO DAILY [facility] Last Admin: 02/17/19 09:53 Dose: 80 mg Guaifenesin/Dextromethorphan (Robitussin Dm) 10 ml PO Q4H PRN PRN Reason: Cough and congestion Heparin Sodium/Sodium Chloride (Heparin 17684 Units/250ml 1/2 Normal Saline) 25,000 units in 250 mls @ 10.097 mls/hr IV .Q24H PRN; Protocol PRN Reason: ADJUST RATE PER PROTOCOL Last Admin: 02/16/19 11:08 Dose: 14 units/kg/hr, 10.097 mls/hr Lactulose (Enulose) 30 gm PO DAILY [facility] Last Admin: 02/17/19 09:53 Dose: Not Given Mineral Oil (Mineral Oil 30ml) 30 ml PO DAILY [facility] Last Admin: 02/17/19 09:52 Dose: 30 ml Prednisone (Prednisone Tab) 5 mg PO DAILY [facility] Last Admin: 02/17/19 09:53 Dose: 5 mg Spironolactone (Aldactone) 50 mg PO QD7 [facility] Last Admin: 02/08/19 09:49 Dose: 50 mg Zolpidem Tartrate (Ambien) 5 mg PO HS [facility] Last Admin: 02/16/19 21:36 Dose: 5 mg - Labs Labs: 02/17/19 08:15 02/17/19 08:15 PT 23.0 SECONDS (9.7-12.2) H 02/16/19 16:55 INR 2.1 02/16/19 16:55 APTT 95 SECONDS (21-34) H D 02/16/19 21:04 - Constitutional Appears: Well, Non-toxic - Head Exam Head Exam: ATRAUMATIC, NORMAL INSPECTION - Eye Exam Eye Exam: EOMI, Normal appearance. absent: Conjunctival injection Pupil Exam: NORMAL ACCOMODATION - ENT Exam ENT Exam: Mucous Membranes Moist - Neck Exam Neck Exam: Full ROM, Normal Inspection. absent: Lymphadenopathy, Meningismus - Respiratory Exam Respiratory Exam: Decreased Breath Sounds, Rales, Rhonchi. absent: Accessory Muscle Use, Chest Wall Tenderness, Wheezes, Respiratory Distress - Cardiovascular Exam Cardiovascular Exam: absent: Bradycardia, Tachycardia - GI/Abdominal Exam GI & Abdominal Exam: Distended, Firm, Normal Bowel Sounds. absent: Rigid, Tenderness - Back Exam Back Exam: absent: CVA tenderness (L), CVA tenderness (R) - Neurological Exam Neurological Exam: Alert, Awake Assessment and Plan (1) Pulmonary arterial hypertension associated with portal hypertension Status: Acute - Assessment and Plan (Free Text) Assessment: Patients with group 1 pulmonary arterial hypertension (PAH) portopulmonary hypertension (PPHTN) which carry lower two-year survival rate Compared with idiopathic and other group 1 PAH Agree with Anticoagulation Management of liver cirrhosis and ascites as per primary team and gastroenterology Patient is scheduled for TIPS procedure Continue off antibiotics, no evidence of infection at this time, or SBP Diuresis with p.o. Lasix and Spironolactone Bronchodilator nebulizer as needed Continue lactulose, No need to check ammonia level Out of bed to chair Supplemental oxygen to keep saturation above 94%
[2019-02-17] MEDS: Heparin25000 units/250ml 1/2NS 25,000 UNITS/250 ML BAG IV PRN (13:30)
--- NOTE | 2019-02-17 15:34 | CP.PCM.PN ---
<MerchantToby - Last Filed: 02/17/19 15:32> Subjective - Date & Time of Evaluation Date of Evaluation: 02/17/19 Time of Evaluation: 07:00 - Subjective Subjective: HPBS- Dr. Harvey Pt admits to feeling better. Abdominal distention improving. Recent US shows patent TIPS. Concerned w/ swelling in left testicle, however improved from before. + flatus and BM Objective - Vital Signs/Intake and Output Vital Signs (last 24 hours): Temp Pulse Resp BP Pulse Ox 98.4 F 78 20 144/75 100 02/17/19 08:00 02/17/19 08:00 02/17/19 08:00 02/17/19 09:53 02/17/19 12:00 Intake and Output: 02/17/19 02/17/19 06:59 18:59 Intake Total 380.8 570.8 Output Total 400 Balance -19.2 570.8 - Medications Medications: Current Medications Albuterol Sulfate (Albuterol 0.083% Inhal Otilia (2.5 Mg/3 Ml) Ud) 2.5 mg INH RQ4 [facility] Last Admin: 02/17/19 15:30 Dose: 2.5 mg Docusate Sodium (Colace) 100 mg PO BID [facility] Last Admin: 02/17/19 09:53 Dose: 100 mg Furosemide (Lasix) 80 mg PO DAILY [facility] Last Admin: 02/17/19 09:53 Dose: 80 mg Guaifenesin/Dextromethorphan (Robitussin Dm) 10 ml PO Q4H PRN PRN Reason: Cough and congestion Heparin Sodium/Sodium Chloride (Heparin 17796 Units/250ml 1/2 Normal Saline) 25,000 units in 250 mls @ 10.097 mls/hr IV .Q24H PRN; Protocol PRN Reason: ADJUST RATE PER PROTOCOL Last Admin: 02/17/19 13:30 Dose: 14 units/kg/hr, 10.097 mls/hr Lactulose (Enulose) 30 gm PO DAILY [facility] Last Admin: 02/17/19 09:53 Dose: Not Given Mineral Oil (Mineral Oil 30ml) 30 ml PO DAILY [facility] Last Admin: 02/17/19 09:52 Dose: 30 ml Prednisone (Prednisone Tab) 5 mg PO DAILY [facility] Last Admin: 04/07/19 09:53 Dose: 5 mg Spironolactone (Aldactone) 50 mg PO QD7 [facility] Last Admin: 02/08/19 09:49 Dose: 50 mg Zolpidem Tartrate (Ambien) 5 mg PO HS [facility] Last Admin: 02/16/19 21:36 Dose: 5 mg - Labs Labs: 02/17/19 08:15 02/17/19 08:15 PT 23.0 SECONDS (9.7-12.2) H 02/16/19 16:55 INR 2.1 02/16/19 16:55 APTT 95 SECONDS (21-34) H D 02/16/19 21:04 - Constitutional Appears: Non-toxic, No Acute Distress - Head Exam Head Exam: ATRAUMATIC - Eye Exam Eye Exam: EOMI. absent: Scleral icterus - ENT Exam ENT Exam: Mucous Membranes Moist - Respiratory Exam Respiratory Exam: NORMAL BREATHING PATTERN. absent: Accessory Muscle Use, Respiratory Distress - Cardiovascular Exam Cardiovascular Exam: REGULAR RHYTHM. absent: Bradycardia, Tachycardia - GI/Abdominal Exam GI & Abdominal Exam: Distended (improved from before), Soft. absent: Firm, Gua rding, Rigid, Tenderness - Neurological Exam Neurological Exam: Alert, Awake, Oriented x3 - Psychiatric Exam Psychiatric exam: Normal Affect - Skin Skin Exam: Intact, Warm Assessment and Plan - Assessment and Plan (Free Text) Assessment: 73 M with ETOH liver cirrhosis s/p TIPS procedure, POD 6 Plan: - bridging Coumadin with heparin gtt - f/u PT/INR - lactulose and rifoxamin - Midodrine - Diuretics for ascites management - OOB as tolerated - duonebs Q4h PRN - strict i&O - daily weights - will discuss with Dr. Fernandez <Haroldo Fernandez - Last Filed: 02/18/19 17:08> Objective - Vital Signs/Intake and Output Vital Signs (last 24 hours): Temp Pulse Resp BP Pulse Ox 97.7 F 69 20 108/63 95 02/18/19 07:56 02/18/19 07:56 02/18/19 07:56 02/18/19 15:00 02/18/19 07:56 Intake and Output: 02/18/19 02/18/19 06:59 18:59 Intake Total 701.6 390.4 Output Total 1650 Balance -948.4 390.4 - Medications Medications: Current Medications Albuterol Sulfate (Albuterol 0.083% Inhal Otilia (2.5 Mg/3 Ml) Ud) 2.5 mg INH RQ4 [facility] Last Admin: 02/18/19 12:59 Dose: 2.5 mg Albuterol/Ipratropium (Duoneb 3 Mg/0.5 Mg (3 Ml) Ud) 3 ml INH RQ4 [facility] Last Admin: 02/18/19 16:37 Dose: 3 ml Docusate Sodium (Colace) 100 mg PO BID [facility] Last Admin: 02/18/19 11:00 Dose: 100 mg Furosemide (Lasix) 40 mg PO DAILY [facility] Last Admin: 02/18/19 15:00 Dose: 40 mg Guaifenesin/Dextromethorphan (Robitussin Dm) 10 ml PO Q4H PRN PRN Reason: Cough and congestion Lactulose (Enulose) 30 gm PO DAILY [facility] Last Admin: 02/18/19 11:00 Dose: 30 gm Midodrine (Proamatine) 2.5 mg PO TID [facility] Last Admin: 02/18/19 15:00 Dose: 2.5 mg Mineral Oil (Mineral Oil 30ml) 30 ml PO DAILY [facility] Last Admin: 02/18/19 11:00 Dose: 30 ml Prednisone (Prednisone) 2.5 mg PO DAILY [facility] Last Admin: 02/18/19 15:22 Dose: Not Given Spironolactone (Aldactone) 100 mg PO DAILY [facility] Last Admin: 02/18/19 15:00 Dose: 100 mg Warfarin Sodium (Coumadin) 2.5 mg PO 1800 [facility] Stop: 02/20/19 18:01 Zolpidem Tartrate (Ambien) 5 mg PO HS [facility] Last Admin: 02/17/19 23:13 Dose: Not Given - Labs Labs: 02/18/19 06:44 02/18/19 06:44 PT 21.4 SECONDS (9.7-12.2) H 02/18/19 06:44 INR 2.0 02/18/19 06:44 APTT 82 SECONDS (21-34) H D 02/18/19 06:44 Assessment and Plan - Assessment and Plan (Free Text) Plan: All medical record entries made by the resident were at my direction. I have reviewed the chart and agree that the record accurately reflects my personal performance of the history, physical exam, and medical decision making.
[2019-02-18] MEDS: Albuterol 0.083% Inhal Sol (2.5 mg/3 mL) UD INH SCH ×4 (03:23→12:59)
[2019-02-18 06:58] LABS: BASO % 0.4 % (0.0-2.0); EOS # 0.3 K/uL (0.0-0.7); EOS % 3.3 % (0.0-4.0); HEMOGLOBIN 8.4 g/dL (12.0-18.0); LYMPH % 13.4 % (20.0-40.0); MEAN CELL VOLUME 86.1 fL (80.0-94.0); MEAN CORPUSCULAR HEMOGLOBIN 27.5 pg (27.0-31.0); MONO # 0.7 K/uL (0.0-0.8); MONO % 9.1 % (0.0-10.0); NEUT # 5.8 K/uL (1.8-7.0); NEUT % 73.8 % (50.0-75.0); NRBC % 0.1 % (0.0-2.0); RBC 3.06 Mil/uL (4.40-5.90); RED CELL DISTRIBUTION WIDTH 21.1 % (11.5-14.5); WHITE BLOOD COUNT 7.8 K/uL (4.8-10.8)
[2019-02-18 07:13] LABS: PROTHROMBIN TIME 21.4 SECONDS (9.7-12.2)
[2019-02-18 07:19] LABS: ALB/GLOB RATIO 1.2 (1.0-2.1); ALBUMIN 3.1 g/dL (3.5-5.0); ALT/SGPT 24 U/L (21-72); AST/SGOT 33 U/L (17-59); BLOOD UREA NITROGEN 13 mg/dL (9-20); CALCIUM 8.6 mg/dl (8.6-10.4); GFR NON-AFRICAN AMERICAN > 60
--- NOTE | 2019-02-18 09:49 | CP.PCM.PN ---
<No Velasquez-Corazontr - Last Filed: 02/18/19 09:49> Subjective - Date & Time of Evaluation Date of Evaluation: 02/18/19 Time of Evaluation: 07:00 - Subjective Subjective: Surgery: Dr. Harvey Patient doing well this am. Denies any current complaints. Per nursing no acute events overnight. Heparin drip running, INR therapeutic with coumadin. Objective - Vital Signs/Intake and Output Vital Signs (last 24 hours): Temp Pulse Resp BP Pulse Ox 97.7 F 69 20 100/62 95 02/18/19 07:56 02/18/19 07:56 02/18/19 07:56 02/18/19 07:56 02/18/19 07:56 Intake and Output: 02/18/19 02/18/19 06:59 18:59 Intake Total 701.6 Output Total 1650 Balance -948.4 - Medications Medications: Current Medications Albuterol Sulfate (Albuterol 0.083% Inhal Otilia (2.5 Mg/3 Ml) Ud) 2.5 mg INH RQ4 [facility] Last Admin: 02/18/19 08:38 Dose: 2.5 mg Docusate Sodium (Colace) 100 mg PO BID [facility] Last Admin: 02/17/19 17:34 Dose: 100 mg Guaifenesin/Dextromethorphan (Robitussin Dm) 10 ml PO Q4H PRN PRN Reason: Cough and congestion Lactulose (Enulose) 30 gm PO DAILY [facility] Last Admin: 02/17/19 09:53 Dose: Not Given Mineral Oil (Mineral Oil 30ml) 30 ml PO DAILY [facility] Last Admin: 02/17/19 09:52 Dose: 30 ml Prednisone (Prednisone Tab) 5 mg PO DAILY [facility] Last Admin: 02/17/19 09:53 Dose: 5 mg Warfarin Sodium (Coumadin) 2.5 mg PO 1800 [facility] Stop: 02/20/19 18:01 Zolpidem Tartrate (Ambien) 5 mg PO HS [facility] Last Admin: 02/17/19 23:13 Dose: Not Given - Labs Labs: 02/18/19 06:44 02/18/19 06:44 PT 21.4 SECONDS (9.7-12.2) H 02/18/19 06:44 INR 2.0 02/18/19 06:44 APTT 82 SECONDS (21-34) H D 02/18/19 06:44 - Constitutional Appears: Chronically Ill - Head Exam Head Exam: ATRAUMATIC, NORMOCEPHALIC - Eye Exam Eye Exam: EOMI, Normal appearance - ENT Exam ENT Exam: Mucous Membranes Moist - Respiratory Exam Respiratory Exam: absent: Respiratory Distress - Cardiovascular Exam Cardiovascular Exam: REGULAR RHYTHM - GI/Abdominal Exam GI & Abdominal Exam: Distended, Soft. absent: Guarding, Tenderness, Rebound - Extremities Exam Extremities Exam: absent: Calf Tenderness - Neurological Exam Neurological Exam: Alert, Awake - Psychiatric Exam Psychiatric exam: Normal Affect, Normal Mood - Skin Skin Exam: Dry, Warm Assessment and Plan - Assessment and Plan (Free Text) Assessment: 73 M with ETOH liver cirrhosis s/p TIPS procedure, POD 7 Plan: - INR therapeutic, d/c heparin drip cont po coumadin - lactulose and rifoxamin - Midodrine - Diuretics for medical ascites management - OOB as tolerated - duonebs Q4h PRN - monitor i&O and daily weights - d/c planning - further recs per Dr. Fernandez [facility] PGY4 <Haroldo Fernandez N - Last Filed: 02/18/19 17:03> Objective - Vital Signs/Intake and Output Vital Signs (last 24 hours): Temp Pulse Resp BP Pulse Ox 97.7 F 69 20 108/63 95 02/18/19 07:56 02/18/19 07:56 02/18/19 07:56 02/18/19 15:00 02/18/19 07:56 Intake and Output: 02/18/19 02/18/19 06:59 18:59 Intake Total 701.6 390.4 Output Total 1650 Balance -948.4 390.4 - Medications Medications: Current Medications Albuterol Sulfate (Albuterol 0.083% Inhal Otilia (2.5 Mg/3 Ml) Ud) 2.5 mg INH RQ4 [facility] Last Admin: 02/18/19 12:59 Dose: 2.5 mg Albuterol/Ipratropium (Duoneb 3 Mg/0.5 Mg (3 Ml) Ud) 3 ml INH RQ4 [facility] Last Admin: 02/18/19 16:37 Dose: 3 ml Docusate Sodium (Colace) 100 mg PO BID [facility] Last Admin: 02/18/19 11:00 Dose: 100 mg Furosemide (Lasix) 40 mg PO DAILY [facility] Last Admin: 02/18/19 15:00 Dose: 40 mg Guaifenesin/Dextromethorphan (Robitussin Dm) 10 ml PO Q4H PRN PRN Reason: Cough and congestion Lactulose (Enulose) 30 gm PO DAILY [facility] Last Admin: 02/18/19 11:00 Dose: 30 gm Midodrine (Proamatine) 2.5 mg PO TID [facility] Last Admin: 02/18/19 15:00 Dose: 2.5 mg Mineral Oil (Mineral Oil 30ml) 30 ml PO DAILY [facility] Last Admin: 02/18/19 11:00 Dose: 30 ml Prednisone (Prednisone) 2.5 mg PO DAILY [facility] Last Admin: 02/18/19 15:22 Dose: Not Given Spironolactone (Aldactone) 100 mg PO DAILY [facility] Last Admin: 02/18/19 15:00 Dose: 100 mg Warfarin Sodium (Coumadin) 2.5 mg PO 1800 [facility] Stop: 02/20/19 18:01 Zolpidem Tartrate (Ambien) 5 mg PO HS [facility] Last Admin: 02/17/19 23:13 Dose: Not Given - Labs Labs: 02/18/19 06:44 02/18/19 06:44 PT 21.4 SECONDS (9.7-12.2) H 02/18/19 06:44 INR 2.0 02/18/19 06:44 APTT 82 SECONDS (21-34) H D 02/18/19 06:44 Assessment and Plan - Assessment and Plan (Free Text) Plan: All medical record entries made by the resident were at my direction. I have reviewed the chart and agree that the record accurately reflects my personal performance of the history, physical exam, and medical decision making. Patient diuretics and midodrine not onorder list today, restarted possible DC tomorrow
--- NOTE | 2019-02-18 12:38 | CP.PCM.PN ---
Subjective - Date & Time of Evaluation Date of Evaluation: 02/18/19 Time of Evaluation: 12:34 - Subjective Subjective: Pulmonology Consult for Dr. Pritchett's service S/E at bedside. Reports sob, cough, and chills. Denies cp, n/v, constipation or diarrhea, and dysuira. Objective - Vital Signs/Intake and Output Vital Signs (last 24 hours): Temp Pulse Resp BP Pulse Ox 97.7 F 69 20 100/62 95 02/18/19 07:56 02/18/19 07:56 02/18/19 07:56 02/18/19 07:56 02/18/19 07:56 Intake and Output: 02/18/19 02/18/19 06:59 18:59 Intake Total 701.6 Output Total 1650 Balance -948.4 - Medications Medications: Current Medications Albuterol Sulfate (Albuterol 0.083% Inhal Otilia (2.5 Mg/3 Ml) Ud) 2.5 mg INH RQ4 [facility] Last Admin: 02/18/19 08:38 Dose: 2.5 mg Albuterol/Ipratropium (Duoneb 3 Mg/0.5 Mg (3 Ml) Ud) 3 ml INH RQ4 [facility] Docusate Sodium (Colace) 100 mg PO BID [facility] Last Admin: 02/18/19 11:00 Dose: 100 mg Guaifenesin/Dextromethorphan (Robitussin Dm) 10 ml PO Q4H PRN PRN Reason: Cough and congestion Lactulose (Enulose) 30 gm PO DAILY [facility] Last Admin: 02/18/19 11:00 Dose: 30 gm Mineral Oil (Mineral Oil 30ml) 30 ml PO DAILY [facility] Last Admin: 02/18/19 11:00 Dose: 30 ml Prednisone (Prednisone Tab) 5 mg PO DAILY [facility] Last Admin: 02/18/19 11:00 Dose: 5 mg Warfarin Sodium (Coumadin) 2.5 mg PO 1800 [facility] Stop: 02/20/19 18:01 Zolpidem Tartrate (Ambien) 5 mg PO HS [facility] Last Admin: 02/17/19 23:13 Dose: Not Given - Labs Labs: 02/18/19 06:44 02/18/19 06:44 PT 21.4 SECONDS (9.7-12.2) H 02/18/19 06:44 INR 2.0 02/18/19 06:44 APTT 82 SECONDS (21-34) H D 02/18/19 06:44 - Constitutional Appears: Non-toxic, No Acute Distress, Chronically Ill - Head Exam Head Exam: NORMAL INSPECTION, NORMOCEPHALIC - Eye Exam Eye Exam: EOMI, Normal appearance. absent: Nystagmus, Scleral icterus - ENT Exam ENT Exam: Mucous Membranes Dry - Respiratory Exam Respiratory Exam: Rales, Wheezes, NORMAL BREATHING PATTERN. absent: Clear to Ausculation Bilateral, Rhonchi - Cardiovascular Exam Cardiovascular Exam: REGULAR RHYTHM, +S1, +S2 - GI/Abdominal Exam GI & Abdominal Exam: Soft, Normal Bowel Sounds. absent: Tenderness - Extremities Exam Extremities Exam: Normal Inspection. absent: Calf Tenderness, Pedal Edema - Psychiatric Exam Psychiatric exam: Normal Affect, Normal Mood - Skin Skin Exam: Dry, Intact, Normal Color Assessment and Plan - Assessment and Plan (Free Text) Assessment: 73 yo female w/ PMH HTN, COPD, GERD,CAD, Cardiomyopathy, AFib, CABG, AICD, Alcoholic Liver Cirrhosis transferred from [facility] for TIPS procedure. Pulm consulted for pulmonary HTN. 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
[2019-02-18 13:26] LABS: PROLACTIN 22.4 ng/mL (3.7-17.9)
--- NOTE | 2019-02-18 15:52 | CT ---
Date of service: 02/18/2019 CT chest without IV contrast Indication: sob Technique: Contiguous axial images were obtained through the chest without intravenous contrast enhancement. Sagittal and coronal reconstructions were generated and reviewed. This CT exam was performed using 1 or more of the following dose reduction techniques: Automated exposure control, adjustment of the MAA and/or kV according to patient size, and/or use of iterative reconstruction technique. Radiation dose (DLP): 422.82 MGy-cm. Comparison: Chest x-ray performed 02/15/19 Findings: Streak artifact limits evaluation. Visualized portions of the inferior thyroid gland appear unremarkable. The unenhanced mediastinal and hilar vascular structures appear grossly unremarkable. Cardiomegaly. Sub cm mediastinal/prevascular adenopathy, nonspecific. Dense pericardial calcification. Dense coronary artery calcifications. Three lead left-sided AICD. Prosthetic cardiac valve. Small bilateral pleural effusions and associated consolidations. Extensive emphysematous changes. Nodular lingular and right lower lobe opacities may reflect pneumonia. Limited visualization of the noncontrast upper abdomen: Ascites. Partially imaged cholelithiasis. Tips stent. Median sternotomy wires. Degenerative changes. Impression: Streak artifact limits evaluation. Sub cm mediastinal/prevascular adenopathy, nonspecific. Cardiomegaly. Dense pericardial calcification. Dense coronary artery calcifications. Three lead left-sided AICD. Prosthetic cardiac valve. Small bilateral pleural effusions and associated consolidations. Extensive emphysematous changes. Nodular lingular and right lower lobe opacities may reflect pneumonia. Recommend chest CT follow-up upon completion of therapy to demonstrate resolution of nodular pattern. Limited visualization of the noncontrast upper abdomen: Ascites. Partially imaged cholelithiasis. Tips stent.
[2019-02-18] MEDS: Albuterol-Ipratrop 3 mg / 0.5 (3 ml) UD INH SCH ×2 (16:37→19:46)
[2019-02-19] MEDS: Albuterol-Ipratrop 3 mg / 0.5 (3 ml) UD INH SCH ×6 (00:22→20:29)
[2019-02-19] MEDS: Albuterol 0.083% Inhal Sol (2.5 mg/3 mL) UD INH SCH ×2 (00:24→03:57)
[2019-02-19 06:32] LABS: INR 1.6; PROTHROMBIN TIME 17.6 SECONDS (9.7-12.2)
--- NOTE | 2019-02-19 08:05 | CP.PCM.PN ---
<Galina Wolfe - Last Filed: 02/20/19 07:18> Subjective - Date & Time of Evaluation Date of Evaluation: 02/19/19 Time of Evaluation: 07:20 - Subjective Subjective: HPB Surgery progress note for Dr. Harvey Patient seen and examined this am at bedside. No acute events overnight per nursing. Patient complains only of the swelling in his legs. INR decreased to 1.6. Objective - Vital Signs/Intake and Output Vital Signs (last 24 hours): Temp Pulse Resp BP Pulse Ox 98.3 F 72 20 106/60 97 02/19/19 07:32 02/19/19 07:32 02/19/19 07:32 02/19/19 07:32 02/19/19 07:32 Intake and Output: 02/19/19 02/19/19 06:59 18:59 Intake Total 420 Balance 420 - Medications Medications: Current Medications Albuterol/Ipratropium (Duoneb 3 Mg/0.5 Mg (3 Ml) Ud) 3 ml INH RQ4 [facility] Last Admin: 02/19/19 03:56 Dose: 3 ml Docusate Sodium (Colace) 100 mg PO BID [facility] Last Admin: 02/18/19 18:27 Dose: 100 mg Furosemide (Lasix) 40 mg PO DAILY [facility] Last Admin: 02/18/19 15:00 Dose: 40 mg Guaifenesin/Dextromethorphan (Robitussin Dm) 10 ml PO Q4H PRN PRN Reason: Cough and congestion Lactulose (Enulose) 30 gm PO DAILY [facility] Last Admin: 02/18/19 11:00 Dose: 30 gm Midodrine (Proamatine) 2.5 mg PO TID [facility] Last Admin: 02/18/19 18:27 Dose: 2.5 mg Mineral Oil (Mineral Oil 30ml) 30 ml PO DAILY [facility] Last Admin: 02/18/19 11:00 Dose: 30 ml Prednisone (Prednisone) 2.5 mg PO DAILY [facility] Last Admin: 02/18/19 15:22 Dose: Not Given Spironolactone (Aldactone) 100 mg PO DAILY [facility] Last Admin: 02/18/19 15:00 Dose: 100 mg Tramadol HCl (Ultram) 50 mg PO Q6H PRN PRN Reason: Pain, moderate (4-7) Warfarin Sodium (Coumadin) 2.5 mg PO 1800 [facility] Stop: 02/20/19 18:01 Last Admin: 02/18/19 18:27 Dose: 2.5 mg Zolpidem Tartrate (Ambien) 5 mg PO HS [facility] Last Admin: 02/18/19 21:32 Dose: 5 mg - Labs Labs: 02/18/19 06:44 02/18/19 06:44 PT 17.6 SECONDS (9.7-12.2) H 02/19/19 06:15 INR 1.6 02/19/19 06:15 APTT 35 SECONDS (21-34) H D 02/19/19 06:15 - Constitutional Appears: Non-toxic, No Acute Distress, Cachectic, Chronically Ill - Head Exam Head Exam: ATRAUMATIC, NORMOCEPHALIC - Eye Exam Eye Exam: EOMI - ENT Exam ENT Exam: Mucous Membranes Moist - Respiratory Exam Respiratory Exam: NORMAL BREATHING PATTERN - Cardiovascular Exam Cardiovascular Exam: REGULAR RHYTHM - GI/Abdominal Exam GI & Abdominal Exam: Distended (2/2 ascites), Soft. absent: Guarding, Tenderness - Extremities Exam Extremities Exam: Calf Tenderness, Pedal Edema - Neurological Exam Neurological Exam: Alert, Awake - Psychiatric Exam Psychiatric exam: Normal Affect, Normal Mood - Skin Skin Exam: Dry, Erythema (overnlying the feet and distal legs bilaterally), Intact, Warm Assessment and Plan - Assessment and Plan (Free Text) Assessment: 73 M with ETOH liver cirrhosis s/p TIPS procedure, POD 8 Plan: - INR non-therapeutic this am at 1.6,continue PO coumadin dose today - lactulose and rifoxamin - Midodrine - Diuretics for medical ascites management - OOB as tolerated - duonebs Q4h PRN - monitor i&O and daily weights - d/c planning - further recs per Dr. Jim Agee, PGY 1 <Haroldo Fernandez - Last Filed: 02/28/19 08:24> Objective - Vital Signs/Intake and Output Vital Signs (last 24 hours): Temp Pulse Resp BP Pulse Ox 97.7 F 68 20 101/64 96 02/25/19 15:47 02/25/19 15:47 02/25/19 15:47 02/25/19 15:47 02/25/19 15:47 Intake and Output: 02/25/19 02/25/19 06:59 18:59 Intake Total 300 500 Output Total 0 Balance 300 500 - Medications Medications: Current Medications Albuterol/Ipratropium (Duoneb 3 Mg/0.5 Mg (3 Ml) Ud) 3 ml INH RQ4 [facility] Last Admin: 02/25/19 13:29 Dose: 3 ml Docusate Sodium (Colace) 100 mg PO BID [facility] Last Admin: 02/25/19 09:54 Dose: 100 mg Furosemide (Lasix) 60 mg PO DAILY [facility] Last Admin: 02/22/19 10:59 Dose: Not Given Furosemide (Lasix) 40 mg IVP DAILY [facility] Last Admin: 02/25/19 09:54 Dose: 40 mg Lactulose (Enulose) 30 gm PO DAILY [facility] Last Admin: 02/25/19 09:55 Dose: 30 gm Mineral Oil (Mineral Oil 30ml) 30 ml PO DAILY [facility] Last Admin: 02/25/19 09:57 Dose: 30 ml Prednisone (Prednisone) 2.5 mg PO DAILY [facility] Last Admin: 02/25/19 09:57 Dose: 2.5 mg Spironolactone (Aldactone) 150 mg PO DAILY [facility] Last Admin: 02/25/19 09:56 Dose: 150 mg Tramadol HCl (Ultram) 50 mg PO Q6H PRN PRN Reason: Pain, moderate (4-7) Last Admin: 02/22/19 19:04 Dose: 50 mg Vitamin E (Vitamin E 400 Units Cap) 800 intlu PO DAILY [facility] Last Admin: 02/25/19 09:57 Dose: 800 intlu Warfarin Sodium (Coumadin) 5 mg PO 1800 [facility] Stop: 02/25/19 18:01 Zolpidem Tartrate (Ambien) 5 mg PO HS [facility] Last Admin: 02/24/19 21:31 Dose: 5 mg - Labs Labs: 02/24/19 08:55 02/24/19 08:55 PT 26.6 SECONDS (9.7-12.2) H 02/25/19 06:29 INR 2.4 02/25/19 06:29 APTT 39 SECONDS (21-34) H 02/24/19 08:55 Assessment and Plan - Assessment and Plan (Free Text) Plan: All medical record entries made by the resident were at my direction. I have reviewed the chart and agree that the record accurately reflects my personal performance of the history, physical exam, and medical decision making.
--- NOTE | 2019-02-19 09:21 | CP.PCM.PN ---
<Santino Sequeiramoni - Last Filed: 02/19/19 14:07> Subjective - Date & Time of Evaluation Date of Evaluation: 02/19/19 Time of Evaluation: 09:16 - Subjective Subjective: Pulm Consult Note for Dr. Pritchett Patient seen and examined at bedside while receiving breathing treatment. Patient states his legs and back left rib cage hurt. He states both his feet are swollen worse than they've been which prevents him from ambulating comfortably. He also complains his rib cage hurts which is causing him shortness of breath and to cough. Patient is afebrile and denies nausea, vomiting, or diarrhea. ROS: As listed in HPI otherwise reviewed and negative. Objective - Vital Signs/Intake and Output Vital Signs (last 24 hours): Temp Pulse Resp BP Pulse Ox 98.3 F 72 20 106/60 97 02/19/19 07:32 02/19/19 07:32 02/19/19 07:32 02/19/19 07:32 02/19/19 07:32 Intake and Output: 02/19/19 02/19/19 06:59 18:59 Intake Total 420 Balance 420 - Medications Medications: Current Medications Albuterol/Ipratropium (Duoneb 3 Mg/0.5 Mg (3 Ml) Ud) 3 ml INH RQ4 [facility] Last Admin: 02/19/19 08:39 Dose: 3 ml Docusate Sodium (Colace) 100 mg PO BID [facility] Last Admin: 02/18/19 18:27 Dose: 100 mg Furosemide (Lasix) 40 mg PO DAILY [facility] Last Admin: 02/18/19 15:00 Dose: 40 mg Guaifenesin/Dextromethorphan (Robitussin Dm) 10 ml PO Q4H PRN PRN Reason: Cough and congestion Lactulose (Enulose) 30 gm PO DAILY [facility] Last Admin: 02/18/19 11:00 Dose: 30 gm Midodrine (Proamatine) 2.5 mg PO TID [facility] Last Admin: 02/18/19 18:27 Dose: 2.5 mg Mineral Oil (Mineral Oil 30ml) 30 ml PO DAILY [facility] Last Admin: 02/18/19 11:00 Dose: 30 ml Prednisone (Prednisone) 2.5 mg PO DAILY [facility] Last Admin: 02/18/19 15:22 Dose: Not Given Spironolactone (Aldactone) 100 mg PO DAILY [facility] Last Admin: 02/18/19 15:00 Dose: 100 mg Tramadol HCl (Ultram) 50 mg PO Q6H PRN PRN Reason: Pain, moderate (4-7) Warfarin Sodium (Coumadin) 2.5 mg PO 1800 [facility] Stop: 02/20/19 18:01 Last Admin: 02/18/19 18:27 Dose: 2.5 mg Zolpidem Tartrate (Ambien) 5 mg PO HS [facility] Last Admin: 02/18/19 21:32 Dose: 5 mg - Labs Labs: 02/18/19 06:44 02/18/19 06:44 PT 17.6 SECONDS (9.7-12.2) H 02/19/19 06:15 INR 1.6 02/19/19 06:15 APTT 35 SECONDS (21-34) H D 02/19/19 06:15 - Constitutional Appears: Non-toxic - Head Exam Head Exam: ATRAUMATIC, NORMOCEPHALIC - Eye Exam Eye Exam: EOMI, PERRL - ENT Exam ENT Exam: Mucous Membranes Moist - Neck Exam Neck Exam: Normal Inspection - Respiratory Exam Respiratory Exam: Rales (pronounced on left side), NORMAL BREATHING PATTERN. absent: Wheezes - Cardiovascular Exam Cardiovascular Exam: JVD, RRR, +S1, +S2 - GI/Abdominal Exam GI & Abdominal Exam: Distended, Soft, Normal Bowel Sounds - Extremities Exam Extremities Exam: Pedal Edema (+2 up to mid-naeem). absent: Calf Tenderness - Neurological Exam Neurological Exam: Alert, Awake, Oriented x3 - Skin Skin Exam: Dry, Warm (chronic changes bilateral lower legs) Assessment and Plan - Assessment and Plan (Free Text) Assessment: 73 year old male with PMH of HTN, COPD, GERD, CAD, Cardiomyopathy, Afib, Cabg, AICD, EtOH liver cirrhosis s/p TIPS procedure. Pulm consulted for pulmonary HTN Plan: Cirrhosis w/ portal HTN s/p TIPS procedure Lasix 40mg daily Aldactone 100mg po daily pending CMP Hospital acquired PNA IV vanc 1gm q 12 IV zosyn 3.375 q6h Procal [address] showed bilateral pleural effusions and associated consolidations with extensive emphysematous changes. Opacities of the lingular and lower right lobe may reflect PNA. pending CBC Pulm HTN 2/2 portal HTN continue duonebs DVT Continue coumadin as per primary team Review duplex LE for findings PGY-1 Martha Sequeira Case d/w Dr. Pritchett <Carson Pritchett S - Last Filed: 02/19/19 15:26> Objective - Vital Signs/Intake and Output Vital Signs (last 24 hours): Temp Pulse Resp BP Pulse Ox 98.3 F 72 20 119/67 97 02/19/19 07:32 02/19/19 07:32 02/19/19 07:32 02/19/19 13:22 02/19/19 07:32 Intake and Output: 02/19/19 02/19/19 06:59 18:59 Intake Total 420 Balance 420 - Medications Medications: Current Medications Albuterol/Ipratropium (Duoneb 3 Mg/0.5 Mg (3 Ml) Ud) 3 ml INH RQ4 [facility] Last Admin: 02/19/19 11:54 Dose: 3 ml Docusate Sodium (Colace) 100 mg PO BID [facility] Last Admin: 02/19/19 11:11 Dose: 100 mg Furosemide (Lasix) 40 mg PO DAILY [facility] Last Admin: 02/19/19 11:12 Dose: Not Given Guaifenesin/Dextromethorphan (Robitussin Dm) 10 ml PO Q4H PRN PRN Reason: Cough and congestion Piperacillin Sod/Tazobactam Sod (Zosyn 3.375 Gm Iv Premix) 3.375 gm in 50 mls @ 100 mls/hr IVPB Q6H [facility]; Protocol Last Admin: 02/19/19 14:45 Dose: 100 mls/hr Vancomycin/Sodium Chloride (Vancomycin 1 Gm/Ns 200 Ml) 1 gm in 200 mls @ 133 mls/hr IVPB Q12H [facility]; Protocol Stop: 02/24/19 16:01 Lactulose (Enulose) 30 gm PO DAILY [facility] Last Admin: 02/19/19 11:11 Dose: 30 gm Midodrine (Proamatine) 5 mg PO TID [facility] Last Admin: 02/19/19 14:37 Dose: Not Given Mineral Oil (Mineral Oil 30ml) 30 ml PO DAILY [facility] Last Admin: 02/19/19 11:11 Dose: 30 ml Prednisone (Prednisone) 2.5 mg PO DAILY [facility] Last Admin: 02/19/19 11:08 Dose: 2.5 mg Spironolactone (Aldactone) 100 mg PO DAILY [facility] Last Admin: 02/19/19 11:10 Dose: 100 mg Tramadol HCl (Ultram) 50 mg PO Q6H PRN PRN Reason: Pain, moderate (4-7) Last Admin: 02/19/19 15:19 Dose: 50 mg Warfarin Sodium (Coumadin) 2.5 mg PO 1800 [facility] Stop: 02/20/19 18:01 Last Admin: 02/18/19 18:27 Dose: 2.5 mg Zolpidem Tartrate (Ambien) 5 mg PO HS [facility] Last Admin: 02/18/19 21:32 Dose: 5 mg - Labs Labs: 02/18/19 06:44 02/18/19 06:44 PT 17.1 SECONDS (9.7-12.2) H 02/19/19 11:49 INR 1.6 02/19/19 11:49 APTT 35 SECONDS (21-34) H D 02/19/19 06:15 Assessment and Plan (1) Pulmonary arterial hypertension associated with portal hypertension Status: Acute Attending/Attestation - Attestation I have personally seen and examined this patient.: Yes I have fully participated in the care of the patient.: Yes I have reviewed all pertinent clinical information, including history, physical exam and plan: Yes Notes (Text): 02/19/19 15:25 Patient seen and examined during rounds with residents CAT scan of the chest noted with right lung infiltrate Start IV antibiotics status post TIPS with increasing pedal edema and abdominal distention Continue spironolactone and was given Lasix today
--- NOTE | 2019-02-19 10:47 | RAD ---
Date of service: 02/19/2019 HISTORY: shortness of breath COMPARISON: 02/15/2019 TECHNIQUE: Chest PA and lateral views FINDINGS: LUNGS: Right basilar opacity, improved compared to prior. Likely pneumonia. No other significant abnormal opacity appreciated. PLEURA: Small right pleural effusion. Possible small left pleural effusion. CARDIOVASCULAR: No aortic atherosclerotic calcification present. Normal heart size. No congestive change. AICD. No pulmonary vascular congestion. OSSEOUS STRUCTURES: No significant abnormalities. VISUALIZED UPPER ABDOMEN: Normal. OTHER FINDINGS: None. IMPRESSION: Improving right basilar infiltrate. Small bilateral pleural effusion. AICD noted.
--- NOTE | 2019-02-19 12:03 | VASCLAB ---
Date of service: 02/18/2019 PROCEDURE: Lower Extremity Venous Duplex Exam. HISTORY: LE edema PRIORS: None. TECHNIQUE: Bilateral common femoral, femoral, popliteal and posterior tibial, peroneal and great saphenous veins were evaluated. Flow was assessed with color Doppler, compressibility, assessment of phasic flow and augmentation response. Report prepared by Levi Álvarez, MELINDA, RVT FINDINGS: RIGHT: 1. Common Femoral Vein: 1.1. Compressibility - Fully compressible: Thrombus - None : Flow - Phasic: Augmentation -Normal: Reflux - None. 2. Femoral Vein: 2.1. Compressibility - Fully compressible: Thrombus - None : Flow - Phasic: Augmentation -Normal: Reflux - None. 3. Popliteal Vein: 3.1. Compressibility - Fully compressible: Thrombus - None : Flow - Phasic: Augmentation -Normal: Reflux - None. 4. Posterior Tibial Vein: 4.1. Compressibility - Fully compressible: Thrombus - None: Flow - Phasic: Augmentation -Normal: Reflux - None. 5. Peroneal Vein: 5.1. Compressibility - Fully compressible: Thrombus - None: Flow - Phasic: Augmentation -Normal: Reflux - None. 6. Great Saphenous Vein: 6.1. Compressibility - Fully compressible: Thrombus - None: Flow - Phasic: Augmentation - Normal: Reflux - None. LEFT: 1. Common Femoral Vein: 1.1. Compressibility - Fully compressible: Thrombus - None: Flow - Phasic: Augmentation -Normal: Reflux - None. 2. Femoral Vein: 2.1. Compressibility - Fully compressible: Thrombus - None: Flow - Phasic: Augmentation -Normal: Reflux - None. 3. Popliteal Vein: 3.1. Compressibility - Fully compressible: Thrombus - None : Flow - Phasic: Augmentation -Normal: Reflux - None. 4. Posterior Tibial Vein: 4.1. Compressibility - Fully compressible: Thrombus - None: Flow - Phasic: Augmentation -Normal: Reflux - None. 5. Peroneal Vein: 5.1. Compressibility - Fully compressible: Thrombus - None: Flow - Phasic: Augmentation -Normal: Reflux - None. 6. Great Saphenous Vein: 6.1. Compressibility - Fully compressible: Thrombus - None: Flow - Phasic: Augmentation - Normal: Reflux - None. OTHER FINDINGS: MARISSA Pisano notified about the findings. IMPRESSION: Right: Acute thrombosis of the right soleal vein with severe reduction of the venous return. Left: No evidence of deep or superficial vein thrombosis of the left lower extremity. Normal valve function noted of the left side.
[2019-02-19 12:05] LABS: INR 1.6; PROTHROMBIN TIME 17.1 SECONDS (9.7-12.2)
[2019-02-19] MEDS: Piperacill/Tazo 3.375gm in Dex 3.375 GM/50 ML BAG IVPB SCH ×2 (14:45→21:45)
[2019-02-19] MEDS: Vancomycin 1 gm/NS 200 ml 1 GM/200 ML BAG IVPB SCH (16:26)
--- NOTE | 2019-02-19 22:59 | CARD ---
APPROVED REPORT Date of service: 02/19/2019 EXAM: LIMITED Two-dimensional and M-mode echocardiogram with Doppler and color Doppler. Other Information Quality : TDSRhythm : INDICATION Congestive Heart Failure Follow up s/p procedure Surgery/Intervention Status/Post Intervention: Stent s/p TIPS Liver procedure 2D DIMENSIONS IVSd1.1 (0.7-1.1cm)LVDd4.7 (3.9-5.9cm) PWd1.2 (0.7-1.1cm)LVDs3.1 (2.5-4.0cm) FS (%) 34.9 %LVEF (%)64.1 (>50%) LVEF (Perry's)61.94 % Mitral Valve E/A ratio0.0 TDI E/Lateral E'0.0E/Medial E'0.0 Tricuspid Valve TR Peak [id number] Peak [id number] LEFT VENTRICLE The left ventricle is normal size. There is normal left ventricular wall thickness. The left ventricular function is normal. The left ventricular ejection fraction is within the normal range. RIGHT VENTRICLE The right ventricle is mildly dilated. ATRIA The left atrium size is normal. The right atrium size is normal. MITRAL VALVE Prosthetic mitral valve appears normal. TRICUSPID VALVE There is moderate to severe pulmonary hypertension. <Conclusion> Normal LV systolic function. Dilated RA. Normally finctioning prosthetic Mitral valve. Moderate to severe TR. Aortic valve is not well visualized.
[2019-02-20] MEDS: Albuterol-Ipratrop 3 mg / 0.5 (3 ml) UD INH SCH ×6 (00:03→19:26)
[2019-02-20] MEDS: Piperacill/Tazo 3.375gm in Dex 3.375 GM/50 ML BAG IVPB SCH ×2 (01:29→08:49)
[2019-02-20] MEDS: Vancomycin 1 gm/NS 200 ml 1 GM/200 ML BAG IVPB SCH (03:11)
[2019-02-20 06:56] LABS: BLOOD UREA NITROGEN 17 mg/dL (9-20); CALCIUM 8.2 mg/dl (8.6-10.4); GFR NON-AFRICAN AMERICAN > 60
[2019-02-20 07:15] LABS: INR 1.4; PROTHROMBIN TIME 15.2 SECONDS (9.7-12.2)
--- NOTE | 2019-02-20 10:02 | CP.PCM.PN ---
Subjective - Date & Time of Evaluation Date of Evaluation: 02/20/19 Time of Evaluation: 10:00 - Subjective Subjective: Pulm Consult Note for Dr. Pritchett Patient seen and examined at bed side. Patient is afebrile and complains of shortness of breath, and belly pain due to "too much water". States his legs are still swollen but that the 80 mg lasix plus spironolactone helped yesterday. Denies cough, nausea, vomiting, or diarrhea. ROS: As listed in HPI otherwise reviewed and negative Objective - Vital Signs/Intake and Output Vital Signs (last 24 hours): Temp Pulse Resp BP Pulse Ox 97.7 F 71 20 101/60 95 02/20/19 07:00 02/20/19 07:00 02/20/19 07:00 02/20/19 07:00 02/20/19 07:00 Intake and Output: 02/20/19 02/20/19 06:59 18:59 Intake Total 920 Output Total 1200 Balance -280 - Medications Medications: Current Medications Albuterol/Ipratropium (Duoneb 3 Mg/0.5 Mg (3 Ml) Ud) 3 ml INH RQ4 [facility] Last Admin: 02/20/19 03:56 Dose: 3 ml Docusate Sodium (Colace) 100 mg PO BID [facility] Last Admin: 02/19/19 17:39 Dose: 100 mg Furosemide (Lasix) 40 mg PO DAILY [facility] Last Admin: 02/19/19 11:12 Dose: Not Given Guaifenesin/Dextromethorphan (Robitussin Dm) 10 ml PO Q4H PRN PRN Reason: Cough and congestion Piperacillin Sod/Tazobactam Sod (Zosyn 3.375 Gm Iv Premix) 3.375 gm in 50 mls @ 100 mls/hr IVPB Q6H [facility]; Protocol Last Admin: 02/20/19 08:49 Dose: 100 mls/hr Vancomycin/Sodium Chloride (Vancomycin 1 Gm/Ns 200 Ml) 1 gm in 200 mls @ 133 mls/hr IVPB Q12H [facility]; Protocol Stop: 02/24/19 16:01 Last Admin: 02/20/19 03:11 Dose: 133 mls/hr Lactulose (Enulose) 30 gm PO DAILY [facility] Last Admin: 02/19/19 11:11 Dose: 30 gm Midodrine (Proamatine) 5 mg PO TID [facility] Last Admin: 02/19/19 17:39 Dose: 5 mg Mineral Oil (Mineral Oil 30ml) 30 ml PO DAILY [facility] Last Admin: 02/19/19 11:11 Dose: 30 ml Prednisone (Prednisone) 2.5 mg PO DAILY [facility] Last Admin: 02/19/19 11:08 Dose: 2.5 mg Spironolactone (Aldactone) 100 mg PO DAILY [facility] Last Admin: 02/19/19 11:10 Dose: 100 mg Tramadol HCl (Ultram) 50 mg PO Q6H PRN PRN Reason: Pain, moderate (4-7) Last Admin: 02/19/19 15:19 Dose: 50 mg Warfarin Sodium (Coumadin) 7.5 mg PO DAILY@1800 [facility] Stop: 02/20/19 18:01 Warfarin Sodium (Coumadin) 7.5 mg PO DAILY@1800 [facility] Stop: 02/21/19 18:01 Zolpidem Tartrate (Ambien) 5 mg PO HS [facility] Last Admin: 02/19/19 21:45 Dose: 5 mg - Labs Labs: 02/18/19 06:44 02/20/19 06:31 PT 15.2 SECONDS (9.7-12.2) H 02/20/19 06:31 INR 1.4 02/20/19 06:31 APTT 35 SECONDS (21-34) H D 02/19/19 06:15 - Constitutional Appears: Well, Non-toxic - Head Exam Head Exam: ATRAUMATIC, NORMOCEPHALIC - Eye Exam Eye Exam: EOMI, Normal appearance - ENT Exam ENT Exam: Mucous Membranes Moist - Respiratory Exam Respiratory Exam: Rales (on left side ). absent: Rhonchi, Wheezes, Respiratory Distress - Cardiovascular Exam Cardiovascular Exam: REGULAR RHYTHM, JVD, +S1, +S2 - GI/Abdominal Exam GI & Abdominal Exam: Distended, Firm, Normal Bowel Sounds - Extremities Exam Extremities Exam: Pedal Edema (+2), Tenderness - Skin Skin Exam: Intact, Warm Assessment and Plan - Assessment and Plan (Free Text) Assessment: 73 year old male with PMH of HTN COPD, GERD, CAD, Cardiomyopathy, Afib, CABG, AICD, EtOH liver cirrhosis s/p TIPS procedure. Plan: Cirrhosis w/portal HTN s/p TIPS lasix aldactone Hospital acquired PNA IV vanc 1gm q12 IV zosyn 3.375 q6h procal 22.4; repeat procal pending CAT scan of chest noted wtih right lung infiltrate. COPD with Pulm HTN. Continue current therapy of duonebs DVT continue coumadin as per primary team. PGY-1 Martha Moya d/w Dr. Pritchett
--- NOTE | 2019-02-20 16:21 | CP.PCM.PN ---
<Toby Elena - Last Filed: 02/20/19 16:19> Subjective - Date & Time of Evaluation Date of Evaluation: 02/20/19 Time of Evaluation: 16:19 - Subjective Subjective: HPBS- Dr. Harvey Patient seen and examined at bedside. Able to void freely, however says has difficult time. B/L LE edema. ECHO performed, shows pulmn HTN. Tolerating diet, + flatus and BM. no new complaints overnight Objective - Vital Signs/Intake and Output Vital Signs (last 24 hours): Temp Pulse Resp BP Pulse Ox 97.7 F 71 20 96/58 L 95 02/20/19 07:00 02/20/19 07:00 02/20/19 07:00 02/20/19 11:08 02/20/19 07:00 Intake and Output: 02/20/19 02/20/19 06:59 18:59 Intake Total 920 480 Output Total 1200 450 Balance -280 30 - Medications Medications: Current Medications Albuterol/Ipratropium (Duoneb 3 Mg/0.5 Mg (3 Ml) Ud) 3 ml INH RQ4 [facility] Last Admin: 02/20/19 15:48 Dose: 3 ml Docusate Sodium (Colace) 100 mg PO BID [facility] Last Admin: 02/20/19 10:47 Dose: 100 mg Furosemide (Lasix) 40 mg PO DAILY [facility] Last Admin: 02/20/19 11:08 Dose: 40 mg Guaifenesin/Dextromethorphan (Robitussin Dm) 10 ml PO Q4H PRN PRN Reason: Cough and congestion Lactulose (Enulose) 30 gm PO DAILY [facility] Last Admin: 02/20/19 10:46 Dose: 30 gm Mineral Oil (Mineral Oil 30ml) 30 ml PO DAILY [facility] Last Admin: 02/20/19 10:47 Dose: 30 ml Prednisone (Prednisone) 2.5 mg PO DAILY [facility] Last Admin: 02/20/19 10:47 Dose: 2.5 mg Spironolactone (Aldactone) 100 mg PO DAILY [facility] Last Admin: 02/20/19 11:11 Dose: 100 mg Tramadol HCl (Ultram) 50 mg PO Q6H PRN PRN Reason: Pain, moderate (4-7) Last Admin: 02/19/19 15:19 Dose: 50 mg Warfarin Sodium (Coumadin) 7.5 mg PO DAILY@1800 [facility] Stop: 02/20/19 18:01 Warfarin Sodium (Coumadin) 7.5 mg PO DAILY@1800 [facility] Stop: 02/21/19 18:01 Zolpidem Tartrate (Ambien) [address] [facility] Last Admin: 02/19/19 21:45 Dose: 5 mg - Labs Labs: 02/18/19 06:44 02/20/19 06:31 PT 15.2 SECONDS (9.7-12.2) H 02/20/19 06:31 INR 1.4 02/20/19 06:31 APTT 35 SECONDS (21-34) H D 02/19/19 06:15 - Constitutional Appears: Non-toxic, No Acute Distress - Head Exam Head Exam: ATRAUMATIC - Eye Exam Eye Exam: EOMI. absent: Scleral icterus - ENT Exam ENT Exam: Mucous Membranes Moist - Respiratory Exam Respiratory Exam: NORMAL BREATHING PATTERN. absent: Accessory Muscle Use, Respiratory Distress - Cardiovascular Exam Cardiovascular Exam: REGULAR RHYTHM. absent: Bradycardia, Tachycardia - GI/Abdominal Exam GI & Abdominal Exam: Distended (baseline), Soft. absent: Firm, Guarding, Rigid, Tenderness - Extremities Exam Extremities Exam: absent: Calf Tenderness - Neurological Exam Neurological Exam: Alert, Awake, Oriented x3 - Psychiatric Exam Psychiatric exam: Normal Affect - Skin Skin Exam: Intact, Warm Assessment and Plan - Assessment and Plan (Free Text) Assessment: 73 M with ETOH liver cirrhosis s/p TIPS procedure, POD 9 Plan: - INR sub therapeutic increase PO coumadin dose today - C/S Cardiology; all recs appreciated - lactulose and rifoxamin - Diuretics for medical ascites management - OOB as tolerated - duonebs Q4h PRN - monitor i&O and daily weights - d/c planning - further recs per Dr. Jim Elena PGY2 <Haroldo Fernandez - Last Filed: 02/21/19 07:46> Objective - Vital Signs/Intake and Output Vital Signs (last 24 hours): Temp Pulse Resp BP Pulse Ox 97.6 F 70 20 115/67 100 02/21/19 00:00 02/21/19 00:00 02/21/19 00:00 02/21/19 00:00 02/21/19 00:00 Intake and Output: 02/21/19 02/21/19 06:59 18:59 Intake Total 240 Output Total 400 Balance -160 - Medications Medications: Current Medications Albuterol/Ipratropium (Duoneb 3 Mg/0.5 Mg (3 Ml) Ud) 3 ml INH RQ4 [facility] Last Admin: 02/21/19 03:53 Dose: 3 ml Docusate Sodium (Colace) 100 mg PO BID [facility] Last Admin: 02/20/19 18:32 Dose: 100 mg Furosemide (Lasix) 60 mg PO DAILY [facility] Guaifenesin/Dextromethorphan (Robitussin Dm) 10 ml PO Q4H PRN PRN Reason: Cough and congestion Lactulose (Enulose) 30 gm PO DAILY [facility] Last Admin: 02/20/19 10:46 Dose: 30 gm Mineral Oil (Mineral Oil 30ml) 30 ml PO DAILY [facility] Last Admin: 02/20/19 10:47 Dose: 30 ml Prednisone (Prednisone) 2.5 mg PO DAILY [facility] Last Admin: 02/20/19 10:47 Dose: 2.5 mg Spironolactone (Aldactone) 150 mg PO DAILY [facility] Tramadol HCl (Ultram) 50 mg PO Q6H PRN PRN Reason: Pain, moderate (4-7) Last Admin: 02/19/19 15:19 Dose: 50 mg Warfarin Sodium (Coumadin) 10 mg PO 1800 [facility] Stop: 02/22/19 18:01 Last Admin: 02/20/19 19:12 Dose: 10 mg Zolpidem Tartrate (Ambien) 5 mg PO HS [facility] Last Admin: 02/20/19 22:07 Dose: 5 mg - Labs Labs: 02/18/19 06:44 02/20/19 06:31 PT 18.1 SECONDS (9.7-12.2) H 02/21/19 06:44 INR 1.7 02/21/19 06:44 APTT 35 SECONDS (21-34) H D 02/19/19 06:15 Assessment and Plan - Assessment and Plan (Free Text) Plan: All medical record entries made by the resident were at my direction and personally dictated by me. I have reviewed the chart and agree that the record accurately reflects my personal performance of the history, physical exam, medical decision making Patient appears to have exaserbated pulmonary hypertension, do not think he has a pneumonia. Needs fluid restriction and diuretics. Need to improve cardiac contractility, and pulmonary vascular resistance. Await cardiology and pulmonary input.
[2019-02-21] MEDS: Albuterol-Ipratrop 3 mg / 0.5 (3 ml) UD INH SCH ×6 (00:56→20:12)
--- NOTE | 2019-02-21 07:21 | CP.PCM.PN ---
<Martha Sequeira - Last Filed: 02/21/19 14:08> Subjective - Date & Time of Evaluation Date of Evaluation: 02/21/19 Time of Evaluation: 07:19 - Subjective Subjective: Pulm Consult Note for Dr. Pritchett Patient seen and examined at bed side. Patient is afebrile and complains of shortness of breath and cough but states that he feels better than yesterday. States his legs remain swollen and uncomfortable however he is now wearing co mpressive stockings and says they are helping. He continues to receive 40 mg lasix plus spironolactone. Denies cough, nausea, vomiting, or diarrhea. ROS: all over systems reviewed and negative Objective - Vital Signs/Intake and Output Vital Signs (last 24 hours): Temp Pulse Resp BP Pulse Ox 97.6 F 70 20 115/67 100 02/21/19 00:00 02/21/19 00:00 02/21/19 00:00 02/21/19 00:00 02/21/19 00:00 Intake and Output: 02/21/19 02/21/19 06:59 18:59 Intake Total 240 Output Total 400 Balance -160 - Medications Medications: Current Medications Albuterol/Ipratropium (Duoneb 3 Mg/0.5 Mg (3 Ml) Ud) 3 ml INH RQ4 [facility] Last Admin: 02/21/19 03:53 Dose: 3 ml Docusate Sodium (Colace) 100 mg PO BID [facility] Last Admin: 02/20/19 18:32 Dose: 100 mg Furosemide (Lasix) 40 mg PO DAILY [facility] Last Admin: 02/20/19 11:08 Dose: 40 mg Guaifenesin/Dextromethorphan (Robitussin Dm) 10 ml PO Q4H PRN PRN Reason: Cough and congestion Lactulose (Enulose) 30 gm PO DAILY [facility] Last Admin: 02/20/19 10:46 Dose: 30 gm Mineral Oil (Mineral Oil 30ml) 30 ml PO DAILY [facility] Last Admin: 02/20/19 10:47 Dose: 30 ml Prednisone (Prednisone) 2.5 mg PO DAILY [facility] Last Admin: 02/20/19 10:47 Dose: 2.5 mg Spironolactone (Aldactone) 100 mg PO DAILY [facility] Last Admin: 02/20/19 11:11 Dose: 100 mg Tramadol HCl (Ultram) 50 mg PO Q6H PRN PRN Reason: Pain, moderate (4-7) Last Admin: 02/19/19 15:19 Dose: 50 mg Warfarin Sodium (Coumadin) 10 mg PO 1800 [facility] Stop: 02/22/19 18:01 Last Admin: 02/20/19 19:12 Dose: 10 mg Zolpidem Tartrate (Ambien) 5 mg PO HS [facility] Last Admin: 02/20/19 22:07 Dose: 5 mg - Labs Labs: 02/18/19 06:44 02/20/19 06:31 PT 15.2 SECONDS (9.7-12.2) H 02/20/19 06:31 INR 1.4 02/20/19 06:31 APTT 35 SECONDS (21-34) H D 02/19/19 06:15 - Constitutional Appears: Well, No Acute Distress - Head Exam Head Exam: ATRAUMATIC, NORMOCEPHALIC - Eye Exam Eye Exam: EOMI, Normal appearance - ENT Exam ENT Exam: Mucous Membranes Moist - Respiratory Exam Respiratory Exam: Rales (bilateral), NORMAL BREATHING PATTERN. absent: Rhonchi, Wheezes - Cardiovascular Exam Cardiovascular Exam: REGULAR RHYTHM, JVD, +S1, +S2 - GI/Abdominal Exam GI & Abdominal Exam: Distended, Firm, Normal Bowel Sounds - Extremities Exam Extremities Exam: Normal Capillary Refill, Pedal Edema (1+ with compression stockings) Assessment and Plan - Assessment and Plan (Free Text) Assessment: 73 year old male with PMH of HTN COPD, GERD, CAD, Cardiomyopathy, Afib, CABG, AICD, EtOH liver cirrhosis s/p TIPS procedure. Plan: 1. Cirrhosis w/portal HTN s/p TIPS lasix 40mg daily aldactone 100mg po daily 2. Hospital acquired PNA d/c'd IV antibiotics as per primary team. Patient afebrile, no leukocytosis, procal .08 3. COPD with Pulm HTN. Continue current therapy of duonebs 4. DVT continue coumadin as per primary team. <Carson Pritchett S - Last Filed: 02/22/19 15:24> Objective - Vital Signs/Intake and Output Vital Signs (last 24 hours): Temp Pulse Resp BP Pulse Ox 98.9 F 79 20 100/53 L 95 02/21/19 16:02 02/21/19 16:02 02/21/19 16:02 02/21/19 16:02 02/21/19 16:02 Intake and Output: 02/21/19 02/21/19 06:59 18:59 Intake Total 240 400 Output Total 400 1150 Balance -160 -750 - Medications Medications: Current Medications Albuterol/Ipratropium (Duoneb 3 Mg/0.5 Mg (3 Ml) Ud) 3 ml INH RQ4 [facility] Last Admin: 02/21/19 15:59 Dose: 3 ml Docusate Sodium (Colace) 100 mg PO BID [facility] Last Admin: 02/21/19 17:30 Dose: 100 mg Furosemide (Lasix) 60 mg PO DAILY [facility] Last Admin: 02/21/19 09:29 Dose: Not Given Guaifenesin/Dextromethorphan (Robitussin Dm) 10 ml PO Q4H PRN PRN Reason: Cough and congestion Lactulose (Enulose) 30 gm PO DAILY [facility] Last Admin: 02/21/19 09:24 Dose: 30 gm Mineral Oil (Mineral Oil 30ml) 30 ml PO DAILY [facility] Last Admin: 02/21/19 09:26 Dose: 30 ml Prednisone (Prednisone) 2.5 mg PO DAILY [facility] Last Admin: 02/21/19 10:11 Dose: 2.5 mg Spironolactone (Aldactone) 150 mg PO DAILY [facility] Last Admin: 02/21/19 09:27 Dose: Not Given Tramadol HCl (Ultram) 50 mg PO Q6H PRN PRN Reason: Pain, moderate (4-7) Last Admin: 02/19/19 15:19 Dose: 50 mg Warfarin Sodium (Coumadin) 10 mg PO 1800 [facility] Stop: 02/22/19 18:01 Last Admin: 02/21/19 17:29 Dose: 10 mg Zolpidem Tartrate (Ambien) 5 mg PO HS [facility] Last Admin: 02/20/19 22:07 Dose: 5 mg - Labs Labs: 02/18/19 06:44 02/21/19 11:44 PT 18.1 SECONDS (9.7-12.2) H 02/21/19 06:44 INR 1.7 02/21/19 06:44 APTT 35 SECONDS (21-34) H D 02/19/19 06:15 Assessment and Plan (1) Pulmonary arterial hypertension associated with portal hypertension Status: Acute Attending/Attestation - Attestation I have personally seen and examined this patient.: Yes I have fully participated in the care of the patient.: Yes I have reviewed all pertinent clinical information, including history, physical exam and plan: Yes Notes (Text): Assessment and plan as per resident note Continue present medication for now Consider to transfer to [facility] for vasoreactivity testing
[2019-02-21 07:26] LABS: INR 1.7; PROTHROMBIN TIME 18.1 SECONDS (9.7-12.2)
[2019-02-21 12:05] LABS: ALB/GLOB RATIO 1.1 (1.0-2.1); ALBUMIN 3.3 g/dL (3.5-5.0); ALT/SGPT 20 U/L (21-72); AST/SGOT 40 U/L (17-59); BLOOD UREA NITROGEN 18 mg/dL (9-20); CALCIUM 8.5 mg/dl (8.6-10.4); GFR NON-AFRICAN AMERICAN > 60
--- NOTE | 2019-02-21 18:28 | CP.PCM.PN ---
<Anselmo Coker - Last Filed: 02/21/19 18:30> Subjective - Date & Time of Evaluation Date of Evaluation: 02/21/19 Time of Evaluation: 07:00 - Subjective Subjective: HBP Surgery Note for Dr. Harvey Patient seen and examined at bedside. Patient still reports increasing abd distention. Breathing is the same. Patient is tolerating diet. +flatus and +BM. Paracentesis at bedside today. Objective - Vital Signs/Intake and Output Vital Signs (last 24 hours): Temp Pulse Resp BP Pulse Ox 98.9 F 79 20 100/53 L 95 02/21/19 16:02 02/21/19 16:02 02/21/19 16:02 02/21/19 16:02 02/21/19 16:02 Intake and Output: 02/21/19 02/21/19 06:59 18:59 Intake Total 240 400 Output Total 400 1150 Balance -160 -750 - Medications Medications: Current Medications Albuterol/Ipratropium (Duoneb 3 Mg/0.5 Mg (3 Ml) Ud) 3 ml INH RQ4 [facility] Last Admin: 02/21/19 15:59 Dose: 3 ml Docusate Sodium (Colace) 100 mg PO BID [facility] Last Admin: 02/21/19 17:30 Dose: 100 mg Furosemide (Lasix) 60 mg PO DAILY [facility] Last Admin: 02/21/19 09:29 Dose: Not Given Guaifenesin/Dextromethorphan (Robitussin Dm) 10 ml PO Q4H PRN PRN Reason: Cough and congestion Albumin Human (Albumin Human 25% (12.5 Gm/50 Ml)) 50 mls @ 100 mls/hr IV Q30M [facility] Stop: 02/21/19 20:59 Lactulose (Enulose) 30 gm PO DAILY [facility] Last Admin: 02/21/19 09:24 Dose: 30 gm Mineral Oil (Mineral Oil 30ml) 30 ml PO DAILY [facility] Last Admin: 02/21/19 09:26 Dose: 30 ml Prednisone (Prednisone) 2.5 mg PO DAILY [facility] Last Admin: 02/21/19 10:11 Dose: 2.5 mg Spironolactone (Aldactone) 150 mg PO DAILY [facility] Last Admin: 02/21/19 09:27 Dose: Not Given Tramadol HCl (Ultram) 50 mg PO Q6H PRN PRN Reason: Pain, moderate (4-7) Last Admin: 02/19/19 15:19 Dose: 50 mg Warfarin Sodium (Coumadin) 10 mg PO 1800 [facility] Stop: 02/22/19 18:01 Last Admin: 02/21/19 17:29 Dose: 10 mg Zolpidem Tartrate (Ambien) 5 mg PO HS [facility] Last Admin: 02/20/19 22:07 Dose: 5 mg - Labs Labs: 02/18/19 06:44 02/21/19 11:44 PT 18.1 SECONDS (9.7-12.2) H 02/21/19 06:44 INR 1.7 02/21/19 06:44 APTT 35 SECONDS (21-34) H D 02/19/19 06:15 - Additional Findings Additional findings: - Constitutional Appears: Non-toxic, No Acute Distress - Head Exam Head Exam: ATRAUMATIC - Eye Exam Eye Exam: EOMI. absent: Scleral icterus - ENT Exam ENT Exam: Mucous Membranes Moist - Respiratory Exam Respiratory Exam: NORMAL BREATHING PATTERN. absent: Accessory Muscle Use, Respiratory Distress - Cardiovascular Exam Cardiovascular Exam: REGULAR RHYTHM. absent: Bradycardia, Tachycardia - GI/Abdominal Exam GI & Abdominal Exam: Distended , Soft. absent: Firm, Guarding, Rigid, Tenderness - Extremities Exam Extremities Exam: absent: Calf Tenderness - Neurological Exam Neurological Exam: Alert, Awake, Oriented x3 - Psychiatric Exam Psychiatric exam: Normal Affect - Skin Skin Exam: Intact, Warm Assessment and Plan - Assessment and Plan (Free Text) Assessment: 73 M with ETOH liver cirrhosis s/p TIPS procedure, POD #10 Plan: - INR needs to be therapeutic, adjust coumadin as needed - f/u Cardiology - lactulose and rifoxamin - Diuretics for medical ascites management - OOB as tolerated - duonebs Q4h PRN - monitor i&O and daily weights - further recs per Dr. Jim Coker PGY2 <Haroldo Fernandez - Last Filed: 02/25/19 17:32> Objective - Vital Signs/Intake and Output Vital Signs (last 24 hours): Temp Pulse Resp BP Pulse Ox 97.7 F 68 20 101/64 96 02/25/19 15:47 02/25/19 15:47 02/25/19 15:47 02/25/19 15:47 02/25/19 15:47 Intake and Output: 02/25/19 02/25/19 06:59 18:59 Intake Total 300 500 Output Total 0 Balance 300 500 - Medications Medications: Current Medications Albuterol/Ipratropium (Duoneb 3 Mg/0.5 Mg (3 Ml) Ud) 3 ml INH RQ4 [facility] Last Admin: 02/25/19 13:29 Dose: 3 ml Docusate Sodium (Colace) 100 mg PO BID [facility] Last Admin: 02/25/19 09:54 Dose: 100 mg Furosemide (Lasix) 60 mg PO DAILY [facility] Last Admin: 02/22/19 10:59 Dose: Not Given Furosemide (Lasix) 40 mg IVP DAILY [facility] Last Admin: 02/25/19 09:54 Dose: 40 mg Lactulose (Enulose) 30 gm PO DAILY [facility] Last Admin: 02/25/19 09:55 Dose: 30 gm Mineral Oil (Mineral Oil 30ml) 30 ml PO DAILY [facility] Last Admin: 02/25/19 09:57 Dose: 30 ml Prednisone (Prednisone) 2.5 mg PO DAILY [facility] Last Admin: 02/25/19 09:57 Dose: 2.5 mg Spironolactone (Aldactone) 150 mg PO DAILY [facility] Last Admin: 02/25/19 09:56 Dose: 150 mg Tramadol HCl (Ultram) 50 mg PO Q6H PRN PRN Reason: Pain, moderate (4-7) Last Admin: 02/22/19 19:04 Dose: 50 mg Vitamin E (Vitamin E 400 Units Cap) 800 intlu PO DAILY [facility] Last Admin: 02/25/19 09:57 Dose: 800 intlu Warfarin Sodium (Coumadin) 5 mg PO 1800 [facility] Stop: 02/25/19 18:01 Zolpidem Tartrate (Ambien) 5 mg PO HS [facility] Last Admin: 02/24/19 21:31 Dose: 5 mg - Labs Labs: 02/24/19 08:55 02/24/19 08:55 PT 26.6 SECONDS (9.7-12.2) H 02/25/19 06:29 INR 2.4 02/25/19 06:29 APTT 39 SECONDS (21-34) H 02/24/19 08:55 Assessment and Plan - Assessment and Plan (Free Text) Assessment: All medical record entries made by the resident were at my direction. I have reviewed the chart and agree that the record accurately reflects my personal per formance of the history, physical exam, and medical decision making.
[2019-02-21] MEDS ORDERED: Albumin Human 25% (12.5 gm/50 ml) IV SCH (18:30)
--- NOTE | 2019-02-21 18:46 | PCM.PROC ---
Procedures Attestation:: I certify that I have explained the specified Operation(s) or Procedure(s), risks, benefits and reasonable alternatives to the Patient and/or other person responsible. The opportunity was given to ask questions and all questions answered - Paracentesis Consent Obtained: written consent (4 liters of ascitic fluid removed) Time Out Performed: Yes Indication: Ascites Procedure: therapeutic paracentesis Location: RLQ Local Anesthetic Used: lidocaine 1%
[2019-02-22] MEDS: Albuterol-Ipratrop 3 mg / 0.5 (3 ml) UD INH SCH ×6 (00:05→19:38)
--- NOTE | 2019-02-22 07:22 | CP.PCM.PN ---
<Martha Sequeira - Last Filed: 02/22/19 11:47> Subjective - Date & Time of Evaluation Date of Evaluation: 02/22/19 Time of Evaluation: 07:21 - Subjective Subjective: Pulm Consult Note for Dr. Pritchett Patient seen and examined at bed side. Paracentesis completed yesterday. 4 L drained Patient is afebrile and yet states shortness of breath and cough are the same as yesterday. States his legs remain swollen and was not wearing compression stockings. He stated they caused him discomfort. lasix increased to 60mg spironolactone increased to 150mg. Denies cough, nausea, vomiting, or diarrhea. ROS: as in HPI all other systems reviewed and negative Objective - Vital Signs/Intake and Output Vital Signs (last 24 hours): Temp Pulse Resp BP Pulse Ox 97.9 F 80 20 104/60 94 L 02/22/19 00:00 02/22/19 00:00 02/22/19 00:00 02/22/19 00:00 02/22/19 00:00 Intake and Output: 02/22/19 02/22/19 06:59 18:59 Intake Total 240 Balance 240 - Medications Medications: Current Medications Albuterol/Ipratropium (Duoneb 3 Mg/0.5 Mg (3 Ml) Ud) 3 ml INH RQ4 [facility] Last Admin: 02/22/19 03:27 Dose: 3 ml Docusate Sodium (Colace) 100 mg PO BID [facility] Last Admin: 02/21/19 17:30 Dose: 100 mg Furosemide (Lasix) 60 mg PO DAILY [facility] Last Admin: 02/21/19 09:29 Dose: Not Given Guaifenesin/Dextromethorphan (Robitussin Dm) 10 ml PO Q4H PRN PRN Reason: Cough and congestion Lactulose (Enulose) 30 gm PO DAILY [facility] Last Admin: 02/21/19 09:24 Dose: 30 gm Mineral Oil (Mineral Oil 30ml) 30 ml PO DAILY [facility] Last Admin: 02/21/19 09:26 Dose: 30 ml Prednisone (Prednisone) 2.5 mg PO DAILY [facility] Last Admin: 02/21/19 10:11 Dose: 2.5 mg Spironolactone (Aldactone) 150 mg PO DAILY [facility] Last Admin: 02/21/19 09:27 Dose: Not Given Tramadol HCl (Ultram) 50 mg PO Q6H PRN PRN Reason: Pain, moderate (4-7) Last Admin: 02/19/19 15:19 Dose: 50 mg Warfarin Sodium (Coumadin) 10 mg PO 1800 [facility] Stop: 02/22/19 18:01 Last Admin: 02/21/19 17:29 Dose: 10 mg Zolpidem Tartrate (Ambien) 5 mg PO HS [facility] Last Admin: 02/21/19 21:34 Dose: 5 mg - Labs Labs: 02/18/19 06:44 02/21/19 11:44 PT 18.1 SECONDS (9.7-12.2) H 02/21/19 06:44 INR 1.7 02/21/19 06:44 APTT 35 SECONDS (21-34) H D 02/19/19 06:15 - Constitutional Appears: Well, Non-toxic - Head Exam Head Exam: ATRAUMATIC, NORMOCEPHALIC - Eye Exam Eye Exam: Normal appearance - ENT Exam ENT Exam: Mucous Membranes Moist - Respiratory Exam Respiratory Exam: Rales (bilaterally). absent: Rhonchi, Wheezes - Cardiovascular Exam Cardiovascular Exam: REGULAR RHYTHM, +S2 - GI/Abdominal Exam GI & Abdominal Exam: Distended, Firm, Soft, Normal Bowel Sounds - Extremities Exam Extremities Exam: Pedal Edema (2+) Assessment and Plan - Assessment and Plan (Free Text) Assessment: 73 year old male with PMH of HTN COPD, GERD, CAD, Cardiomyopathy, Afib, CABG, AICD, EtOH liver cirrhosis s/p TIPS procedure. Plan: 1. Cirrhosis w/portal HTN s/p TIPS Paracentesis done 02/21/19 drained 4 L lasix 60mg daily aldactone 150mg po daily 2. Hospital acquired PNA d/c'd IV antibiotics as per primary team. Patient afebrile, no leukocytosis 3. COPD with Pulm HTN. Continue current therapy of duonebs 4. DVT continue coumadin as per primary team. <Carson Pritchett S - Last Filed: 02/22/19 15:23> Objective - Vital Signs/Intake and Output Vital Signs (last 24 hours): Temp Pulse Resp BP Pulse Ox 97.9 F 73 20 105/62 95 02/22/19 07:59 02/22/19 07:59 02/22/19 07:59 02/22/19 08:53 02/22/19 07:59 Intake and Output: 02/22/19 02/22/19 06:59 18:59 Intake Total 240 Balance 240 - Medications Medications: Current Medications Albuterol/Ipratropium (Duoneb 3 Mg/0.5 Mg (3 Ml) Ud) 3 ml INH RQ4 [facility] Last Admin: 02/22/19 11:25 Dose: 3 ml Docusate Sodium (Colace) 100 mg PO BID [facility] Last Admin: 02/22/19 10:59 Dose: Not Given Furosemide (Lasix) 60 mg PO DAILY [facility] Last Admin: 02/22/19 10:59 Dose: Not Given Guaifenesin/Dextromethorphan (Robitussin Dm) 10 ml PO Q4H PRN PRN Reason: Cough and congestion Lactulose (Enulose) 30 gm PO DAILY [facility] Last Admin: 02/22/19 10:59 Dose: Not Given Mineral Oil (Mineral Oil 30ml) 30 ml PO DAILY [facility] Last Admin: 02/22/19 10:59 Dose: Not Given Prednisone (Prednisone) 2.5 mg PO DAILY [facility] Last Admin: 02/22/19 10:59 Dose: Not Given Spironolactone (Aldactone) 150 mg PO DAILY [facility] Last Admin: 02/22/19 10:59 Dose: Not Given Tramadol HCl (Ultram) 50 mg PO Q6H PRN PRN Reason: Pain, moderate (4-7) Last Admin: 02/19/19 15:19 Dose: 50 mg Warfarin Sodium (Coumadin) 10 mg PO 1800 [facility] Stop: 02/22/19 18:01 Last Admin: 02/21/19 17:29 Dose: 10 mg Zolpidem Tartrate (Ambien) 5 mg PO HS [facility] Last Admin: 02/21/19 21:34 Dose: 5 mg - Labs Labs: 02/18/19 06:44 02/22/19 11:21 PT 27.5 SECONDS (9.7-12.2) H D 02/22/19 11:21 INR 2.5 D 02/22/19 11:21 APTT 35 SECONDS (21-34) H D 02/19/19 06:15 Assessment and Plan (1) Pulmonary arterial hypertension associated with portal hypertension Status: Acute Attending/Attestation - Attestation I have personally seen and examined this patient.: Yes I have fully participated in the care of the patient.: Yes I have reviewed all pertinent clinical information, including history, physical exam and plan: Yes Notes (Text): 02/22/19 15:22 Patient seen and examined. Assessment and plan as per resident note Patient has portopulmonary hypertension and should be referred to pulmonary hypertension clinic at [facility] for antihypertensive medications and right heart cath with vasoreactivity testing.
--- NOTE | 2019-02-22 08:56 | CP.PCM.PN ---
<Galina Wolfe - Last Filed: 02/22/19 10:01> Subjective - Date & Time of Evaluation Date of Evaluation: 02/22/19 Time of Evaluation: 07:20 - Subjective Subjective: HPB surgery: Harvey Patient seen and examined this am at bedside. States he feels his belly has regained fluid since paracentesis yesterday. he additionally c/o swelling and discomfort in his legs. He otherwise denies ALVAREZ, CP, SOB, abdominal pain, n/v, f/c. endorses BM and flatus 12 point ROS otherwise negative Objective - Vital Signs/Intake and Output Vital Signs (last 24 hours): Temp Pulse Resp BP Pulse Ox 97.9 F 73 20 105/62 95 02/22/19 07:59 02/22/19 07:59 02/22/19 07:59 02/22/19 07:59 02/22/19 07:59 Intake and Output: 02/22/19 02/22/19 06:59 18:59 Intake Total 240 Balance 240 - Medications Medications: Current Medications Albuterol/Ipratropium (Duoneb 3 Mg/0.5 Mg (3 Ml) Ud) 3 ml INH RQ4 [facility] Last Admin: 02/22/19 08:18 Dose: 3 ml Docusate Sodium (Colace) 100 mg PO BID [facility] Last Admin: 02/21/19 17:30 Dose: 100 mg Furosemide (Lasix) 60 mg PO DAILY [facility] Last Admin: 02/21/19 09:29 Dose: Not Given Guaifenesin/Dextromethorphan (Robitussin Dm) 10 ml PO Q4H PRN PRN Reason: Cough and congestion Lactulose (Enulose) 30 gm PO DAILY [facility] Last Admin: 02/21/19 09:24 Dose: 30 gm Mineral Oil (Mineral Oil 30ml) 30 ml PO DAILY [facility] Last Admin: 02/21/19 09:26 Dose: 30 ml Prednisone (Prednisone) 2.5 mg PO DAILY [facility] Last Admin: 02/21/19 10:11 Dose: 2.5 mg Spironolactone (Aldactone) 150 mg PO DAILY [facility] Last Admin: 02/21/19 09:27 Dose: Not Given Tramadol HCl (Ultram) 50 mg PO Q6H PRN PRN Reason: Pain, moderate (4-7) Last Admin: 02/19/19 15:19 Dose: 50 mg Warfarin Sodium (Coumadin) 10 mg PO 1800 [facility] Stop: 02/22/19 18:01 Last Admin: 02/21/19 17:29 Dose: 10 mg Zolpidem Tartrate (Ambien) 5 mg PO HS [facility] Last Admin: 02/21/19 21:34 Dose: 5 mg - Labs Labs: 02/18/19 06:44 02/21/19 11:44 PT 18.1 SECONDS (9.7-12.2) H 02/21/19 06:44 INR 1.7 02/21/19 06:44 APTT 35 SECONDS (21-34) H D 02/19/19 06:15 - Constitutional Appears: Non-toxic, No Acute Distress, Cachectic, Chronically Ill - Head Exam Head Exam: ATRAUMATIC, NORMOCEPHALIC - Eye Exam Eye Exam: EOMI - ENT Exam ENT Exam: Mucous Membranes Moist - Respiratory Exam Respiratory Exam: NORMAL BREATHING PATTERN - Cardiovascular Exam Cardiovascular Exam: REGULAR RHYTHM - GI/Abdominal Exam GI & Abdominal Exam: Distended (with fluid wave), Soft. absent: Guarding, Tenderness, Rebound - Extremities Exam Extremities Exam: Calf Tenderness (right), Pedal Edema, Tenderness - Neurological Exam Neurological Exam: Alert, Awake, Oriented x3 - Psychiatric Exam Psychiatric exam: Normal Affect, Normal Mood - Skin Skin Exam: Dry, Intact, Normal Color, Warm Assessment and Plan - Assessment and Plan (Free Text) Assessment: 73 yr old male with ETOh cirrhosis s/p TIPS procedure, POD 11, s/p Paracentesis yesterday 4L, POD1 Plan: - adjust coumadin dosing as needed for INR therapeutic levels - lactulose and rifoxamin - Diuretics for medical ascites management - OOB as tolerated - duonebs Q4h PRN - monitor i&O and daily weights - recommend right heart cath for Pulmonary HTN eval - further recs per Dr. Jim Wolfe, PGY 1 <Haroldo Fernandez - Last Filed: 02/25/19 17:29> Objective - Vital Signs/Intake and Output Vital Signs (last 24 hours): Temp Pulse Resp BP Pulse Ox 97.7 F 68 20 101/64 96 02/25/19 15:47 02/25/19 15:47 02/25/19 15:47 02/25/19 15:47 02/25/19 15:47 Intake and Output: 02/25/19 02/25/19 06:59 18:59 Intake Total 300 500 Output Total 0 Balance 300 500 - Medications Medications: Current Medications Albuterol/Ipratropium (Duoneb 3 Mg/0.5 Mg (3 Ml) Ud) 3 ml INH RQ4 [facility] Last Admin: 02/25/19 13:29 Dose: 3 ml Docusate Sodium (Colace) 100 mg PO BID [facility] Last Admin: 02/25/19 09:54 Dose: 100 mg Furosemide (Lasix) 60 mg PO DAILY [facility] Last Admin: 02/22/19 10:59 Dose: Not Given Furosemide (Lasix) 40 mg IVP DAILY [facility] Last Admin: 02/25/19 09:54 Dose: 40 mg Lactulose (Enulose) 30 gm PO DAILY [facility] Last Admin: 02/25/19 09:55 Dose: 30 gm Mineral Oil (Mineral Oil 30ml) 30 ml PO DAILY [facility] Last Admin: 02/25/19 09:57 Dose: 30 ml Prednisone (Prednisone) 2.5 mg PO DAILY [facility] Last Admin: 02/25/19 09:57 Dose: 2.5 mg Spironolactone (Aldactone) 150 mg PO DAILY [facility] Last Admin: 02/25/19 09:56 Dose: 150 mg Tramadol HCl (Ultram) 50 mg PO Q6H PRN PRN Reason: Pain, moderate (4-7) Last Admin: 02/22/19 19:04 Dose: 50 mg Vitamin E (Vitamin E 400 Units Cap) 800 intlu PO DAILY [facility] Last Admin: 02/25/19 09:57 Dose: 800 intlu Warfarin Sodium (Coumadin) 5 mg PO 1800 [facility] Stop: 02/25/19 18:01 Zolpidem Tartrate (Ambien) 5 mg PO HS [facility] Last Admin: 02/24/19 21:31 Dose: 5 mg - Labs Labs: 02/24/19 08:55 02/24/19 08:55 PT 26.6 SECONDS (9.7-12.2) H 02/25/19 06:29 INR 2.4 02/25/19 06:29 APTT 39 SECONDS (21-34) H 02/24/19 08:55 Assessment and Plan - Assessment and Plan (Free Text) Plan: All medical record entries made by the resident were at my direction. I have reviewed the chart and agree that the record accurately reflects my personal performance of the history, physical exam, and medical decision making.
[2019-02-22 11:36] LABS: INR 2.5; PROTHROMBIN TIME 27.5 SECONDS (9.7-12.2)
[2019-02-22 11:51] LABS: ALB/GLOB RATIO 1.2 (1.0-2.1); ALBUMIN 3.6 g/dL (3.5-5.0); ALT/SGPT 16 U/L (21-72); AST/SGOT 29 U/L (17-59); BLOOD UREA NITROGEN 19 mg/dL (9-20); CALCIUM 8.4 mg/dl (8.6-10.4); GFR NON-AFRICAN AMERICAN > 60
[2019-02-23] MEDS: Albuterol-Ipratrop 3 mg / 0.5 (3 ml) UD INH SCH ×6 (01:03→21:45)
[2019-02-23 06:43] LABS: BASO # 0.1 K/uL (0.0-0.2); BASO % 0.7 % (0.0-2.0); EOS # 0.3 K/uL (0.0-0.7); EOS % 3.3 % (0.0-4.0); HEMOGLOBIN 8.2 g/dL (12.0-18.0); LYMPH % 13.2 % (20.0-40.0); MEAN CELL VOLUME 86.9 fL (80.0-94.0); MEAN CORPUSCULAR HEMOGLOBIN 27.7 pg (27.0-31.0); MEAN CORPUSCULAR HGB CONC 31.8 g/dL (33.0-37.0); MEAN PLATELET VOLUME 8.1 fL (7.2-11.7); MONO # 0.8 K/uL (0.0-0.8); MONO % 9.9 % (0.0-10.0); NEUT # 5.6 K/uL (1.8-7.0); NEUT % 72.9 % (50.0-75.0); RBC 2.98 Mil/uL (4.40-5.90); RED CELL DISTRIBUTION WIDTH 20.8 % (11.5-14.5); WHITE BLOOD COUNT 7.7 K/uL (4.8-10.8)
[2019-02-23 06:49] LABS: INR 2.6
[2019-02-23 06:56] LABS: ALB/GLOB RATIO 1.1 (1.0-2.1); ALBUMIN 3.1 g/dL (3.5-5.0); ALT/SGPT 18 U/L (21-72); AST/SGOT 31 U/L (17-59); BLOOD UREA NITROGEN 20 mg/dL (9-20); CALCIUM 8.2 mg/dl (8.6-10.4); GFR NON-AFRICAN AMERICAN > 60
--- NOTE | 2019-02-23 13:53 | CP.PCM.PN ---
Subjective - Date & Time of Evaluation Date of Evaluation: 02/23/19 Time of Evaluation: 12:35 - Subjective Subjective: Patient seen and examined Status post paracentesis and 4 L fluid removed yesterday Status post tips procedure Status post right heart cath with normal pulmonary hypertension Repeat echocardiogram consistent with elevated right-sided pressures Patient with portal pulmonary hypertension and will benefit from endothelin receptor inhibitors but will need vasoreactivity testing Consider transferring to pulmonary hypertension clinic at [facility] for further workup Objective - Vital Signs/Intake and Output Vital Signs (last 24 hours): Temp Pulse Resp BP Pulse Ox 97.3 F L 76 20 119/64 94 L 02/23/19 07:00 02/23/19 07:00 02/23/19 07:00 02/23/19 10:06 02/23/19 07:00 Intake and Output: 02/23/19 02/23/19 06:59 18:59 Intake Total 420 120 Balance 420 120 - Medications Medications: Current Medications Albuterol/Ipratropium (Duoneb 3 Mg/0.5 Mg (3 Ml) Ud) 3 ml INH RQ4 [facility] Last Admin: 02/23/19 11:23 Dose: 3 ml Docusate Sodium (Colace) 100 mg PO BID [facility] Last Admin: 02/23/19 10:06 Dose: 100 mg Furosemide (Lasix) 60 mg PO DAILY [facility] Last Admin: 02/22/19 10:59 Dose: Not Given Furosemide (Lasix) 40 mg IVP DAILY [facility] Last Admin: 02/23/19 10:06 Dose: 40 mg Guaifenesin/Dextromethorphan (Robitussin Dm) 10 ml PO Q4H PRN PRN Reason: Cough and congestion Lactulose (Enulose) 30 gm PO DAILY [facility] Last Admin: 02/23/19 10:07 Dose: 30 gm Mineral Oil (Mineral Oil 30ml) 30 ml PO DAILY [facility] Last Admin: 02/23/19 10:06 Dose: 30 ml Prednisone (Prednisone) 2.5 mg PO DAILY [facility] Last Admin: 02/23/19 10:06 Dose: 2.5 mg Spironolactone (Aldactone) 150 mg PO DAILY [facility] Last Admin: 02/23/19 10:07 Dose: 150 mg Tramadol HCl (Ultram) 50 mg PO Q6H PRN PRN Reason: Pain, moderate (4-7) Last Admin: 02/22/19 19:04 Dose: 50 mg Vitamin E (Vitamin E 400 Units Cap) 800 intlu PO DAILY [facility] Last Admin: 02/23/19 11:58 Dose: 800 intlu Zolpidem Tartrate (Ambien) 5 mg PO HS [facility] Last Admin: 02/22/19 21:23 Dose: 5 mg - Labs Labs: 02/23/19 06:28 02/23/19 06:28 PT 28.0 SECONDS (9.7-12.2) H 02/23/19 06:28 INR 2.6 02/23/19 06:28 APTT 35 SECONDS (21-34) H D 02/19/19 06:15 Assessment and Plan (1) Pulmonary arterial hypertension associated with portal hypertension Status: Acute
--- NOTE | 2019-02-23 16:21 | CP.PCM.PN ---
Subjective - Date & Time of Evaluation Date of Evaluation: 02/23/19 Time of Evaluation: 16:20 - Subjective Subjective: Patient was seen and examined Denies chest pain and dyspnea Admits to dry cough Denies fevers, chest pain, SOB Afebrile Physical Exam - Head Exam Head Exam: ATRAUMATIC, NORMOCEPHALIC - ENT Exam ENT Exam: Mucous Membranes Moist - Neck Exam Neck exam: Positive for: Normal Inspection - Respiratory Exam Respiratory Exam: Clear to Auscultation Bilateral - Cardiovascular Exam Cardiovascular Exam: REGULAR RHYTHM - GI/Abdominal Exam GI & Abdominal Exam: Distended - Extremities Exam Extremities exam: Positive for: pedal edema Assessment and Plan - Assessment and Plan (Free Text) Assessment: CHF, COPD, GERD,CAD, Cardiomyopathy, AFib, CABG, AICD, Alcoholic Liver Cirrhosis S/P RHC: Mild Pulmonary HTN Patient scheduled for RHC Monday 4pm NPO after 12 noon Monday (Please give light lunch prior to 12 noon) Thank you Objective - Vital Signs/Intake and Output Vital Signs (last 24 hours): Temp Pulse Resp BP Pulse Ox 97.3 F L 76 20 119/64 94 L 02/23/19 07:00 02/23/19 07:00 02/23/19 07:00 02/23/19 10:06 02/23/19 07:00 Intake and Output: 02/23/19 02/23/19 06:59 18:59 Intake Total 420 240 Balance 420 240 - Medications Medications: Current Medications Albuterol/Ipratropium (Duoneb 3 Mg/0.5 Mg (3 Ml) Ud) 3 ml INH RQ4 [facility] Last Admin: 02/23/19 11:23 Dose: 3 ml Docusate Sodium (Colace) 100 mg PO BID [facility] Last Admin: 02/23/19 10:06 Dose: 100 mg Furosemide (Lasix) 60 mg PO DAILY [facility] Last Admin: 02/22/19 10:59 Dose: Not Given Furosemide (Lasix) 40 mg IVP DAILY [facility] Last Admin: 02/23/19 10:06 Dose: 40 mg Guaifenesin/Dextromethorphan (Robitussin Dm) 10 ml PO Q4H PRN PRN Reason: Cough and congestion Lactulose (Enulose) 30 gm PO DAILY [facility] Last Admin: 02/23/19 10:07 Dose: 30 gm Mineral Oil (Mineral Oil 30ml) 30 ml PO DAILY [facility] Last Admin: 02/23/19 10:06 Dose: 30 ml Prednisone (Prednisone) 2.5 mg PO DAILY [facility] Last Admin: 02/23/19 10:06 Dose: 2.5 mg Spironolactone (Aldactone) 150 mg PO DAILY [facility] Last Admin: 02/23/19 10:07 Dose: 150 mg Tramadol HCl (Ultram) 50 mg PO Q6H PRN PRN Reason: Pain, moderate (4-7) Last Admin: 02/22/19 19:04 Dose: 50 mg Vitamin E (Vitamin E 400 Units Cap) 800 intlu PO DAILY [facility] Last Admin: 02/23/19 11:58 Dose: 800 intlu Warfarin Sodium (Coumadin) 5 mg PO 1800 [facility] Stop: 02/23/19 18:01 Zolpidem Tartrate (Ambien) 5 mg PO HS [facility] Last Admin: 02/22/19 21:23 Dose: 5 mg - Labs Labs: 02/23/19 06:28 02/23/19 06:28 PT 28.0 SECONDS (9.7-12.2) H 02/23/19 06:28 INR 2.6 02/23/19 06:28 APTT 35 SECONDS (21-34) H D 02/19/19 06:15
--- NOTE | 2019-02-23 17:46 | CP.PCM.PN ---
<Bianka Cokery - Last Filed: 02/23/19 17:43> Subjective - Date & Time of Evaluation Date of Evaluation: 02/23/19 Time of Evaluation: 07:45 - Subjective Subjective: HBP surgery Note for Dr. Fernandez Patient seen and examined this am at bedside. He states he feels his belly has more fluid today. Still complaining of swelling and discomfort in his legs. He endorses BM and flatus. Patient tolerating diet. Objective - Vital Signs/Intake and Output Vital Signs (last 24 hours): Temp Pulse Resp BP Pulse Ox 97.3 F L 76 20 119/64 94 L 02/23/19 07:00 02/23/19 07:00 02/23/19 07:00 02/23/19 10:06 02/23/19 07:00 Intake and Output: 02/23/19 02/23/19 06:59 18:59 Intake Total 420 240 Balance 420 240 - Medications Medications: Current Medications Docusate Sodium (Colace) 100 mg PO BID [facility] Last Admin: 02/23/19 17:24 Dose: 100 mg Furosemide (Lasix) 60 mg PO DAILY [facility] Last Admin: 02/22/19 10:59 Dose: Not Given Furosemide (Lasix) 40 mg IVP DAILY [facility] Last Admin: 02/23/19 10:06 Dose: 40 mg Guaifenesin/Dextromethorphan (Robitussin Dm) 10 ml PO Q4H PRN PRN Reason: Cough and congestion Lactulose (Enulose) 30 gm PO DAILY [facility] Last Admin: 02/23/19 10:07 Dose: 30 gm Mineral Oil (Mineral Oil 30ml) 30 ml PO DAILY [facility] Last Admin: 02/23/19 10:06 Dose: 30 ml Prednisone (Prednisone) 2.5 mg PO DAILY [facility] Last Admin: 02/23/19 10:06 Dose: 2.5 mg Spironolactone (Aldactone) 150 mg PO DAILY [facility] Last Admin: 02/23/19 10:07 Dose: 150 mg Tramadol HCl (Ultram) 50 mg PO Q6H PRN PRN Reason: Pain, moderate (4-7) Last Admin: 02/22/19 19:04 Dose: 50 mg Vitamin E (Vitamin E 400 Units Cap) 800 intlu PO DAILY [facility] Last Admin: 02/23/19 11:58 Dose: 800 intlu Warfarin Sodium (Coumadin) 5 mg PO 1800 [facility] Stop: 02/23/19 18:01 Last Admin: 02/23/19 17:24 Dose: 5 mg Zolpidem Tartrate (Ambien) 5 mg PO HS [facility] Last Admin: 02/22/19 21:23 Dose: 5 mg - Labs Labs: 02/23/19 06:28 02/23/19 06:28 PT 28.0 SECONDS (9.7-12.2) H 02/23/19 06:28 INR 2.6 02/23/19 06:28 APTT 35 SECONDS (21-34) H D 02/19/19 06:15 - Additional Findings Additional findings: - Constitutional Appears: Non-toxic, No Acute Distress, Cachectic, Chronically Ill - Head Exam Head Exam: ATRAUMATIC, NORMOCEPHALIC - Eye Exam Eye Exam: EOMI - ENT Exam ENT Exam: Mucous Membranes Moist - Respiratory Exam Respiratory Exam: NORMAL BREATHING PATTERN - Cardiovascular Exam Cardiovascular Exam: REGULAR RHYTHM - GI/Abdominal Exam GI & Abdominal Exam: Distended (with fluid wave), Soft. absent: Guarding, Tenderness, Rebound - Extremities Exam Extremities Exam: Calf Tenderness (right), Pedal Edema, Tenderness - Neurological Exam Neurological Exam: Alert, Awake, Oriented x3 - Psychiatric Exam Psychiatric exam: Normal Affect, Normal Mood - Skin Skin Exam: Dry, Intact, Normal Color, Warm Assessment and Plan - Assessment and Plan (Free Text) Assessment: 73 yr old male with ETOh cirrhosis s/p TIPS procedure, POD 12, s/p Paracentesis POD2 Plan: - adjust coumadin dosing as needed for INR therapeutic levels - lactulose and rifoxamin - Diuretics for medical ascites management - OOB as tolerated - duonebs Q4h PRN - monitor i&O and daily weights - recommend right heart cath for Pulmonary HTN eval - f/u Pulm and Cardio - Discussed with Dr. Jim Coker PGY2 <Haroldo Fernandez - Last Filed: 02/25/19 17:26> Objective - Vital Signs/Intake and Output Vital Signs (last 24 hours): Temp Pulse Resp BP Pulse Ox 97.7 F 68 20 101/64 96 02/25/19 15:47 02/25/19 15:47 02/25/19 15:47 02/25/19 15:47 02/25/19 15:47 Intake and Output: 02/25/19 02/25/19 06:59 18:59 Intake Total 300 500 Output Total 0 Balance 300 500 - Medications Medications: Current Medications Albuterol/Ipratropium (Duoneb 3 Mg/0.5 Mg (3 Ml) Ud) 3 ml INH RQ4 [facility] Last Admin: 02/25/19 13:29 Dose: 3 ml Docusate Sodium (Colace) 100 mg PO BID [facility] Last Admin: 02/25/19 09:54 Dose: 100 mg Furosemide (Lasix) 60 mg PO DAILY [facility] Last Admin: 02/22/19 10:59 Dose: Not Given Furosemide (Lasix) 40 mg IVP DAILY [facility] Last Admin: 02/25/19 09:54 Dose: 40 mg Lactulose (Enulose) 30 gm PO DAILY [facility] Last Admin: 02/25/19 09:55 Dose: 30 gm Mineral Oil (Mineral Oil 30ml) 30 ml PO DAILY [facility] Last Admin: 02/25/19 09:57 Dose: 30 ml Prednisone (Prednisone) 2.5 mg PO DAILY [facility] Last Admin: 02/25/19 09:57 Dose: 2.5 mg Spironolactone (Aldactone) 150 mg PO DAILY [facility] Last Admin: 02/25/19 09:56 Dose: 150 mg Tramadol HCl (Ultram) 50 mg PO Q6H PRN PRN Reason: Pain, moderate (4-7) Last Admin: 02/22/19 19:04 Dose: 50 mg Vitamin E (Vitamin E 400 Units Cap) 800 intlu PO DAILY [facility] Last Admin: 02/25/19 09:57 Dose: 800 intlu Warfarin Sodium (Coumadin) 5 mg PO 1800 [facility] Stop: 02/25/19 18:01 Zolpidem Tartrate (Ambien) 5 mg PO HS [facility] Last Admin: 02/24/19 21:31 Dose: 5 mg - Labs Labs: 02/24/19 08:55 02/24/19 08:55 PT 26.6 SECONDS (9.7-12.2) H 02/25/19 06:29 INR 2.4 02/25/19 06:29 APTT 39 SECONDS (21-34) H 02/24/19 08:55 Assessment and Plan - Assessment and Plan (Free Text) Plan: All medical record entries made by the resident were at my direction. I have reviewed the chart and agree that the record accurately reflects my personal performance of the history, physical exam, and medical decision making.
[2019-02-24 00:42] VITALS: RESP 20
[2019-02-24] MEDS: Albuterol-Ipratrop 3 mg / 0.5 (3 ml) UD INH SCH ×6 (00:45→19:32)
[2019-02-24 09:09] LABS: BASO # 0.1 K/uL (0.0-0.2); BASO % 0.9 % (0.0-2.0); EOS # 0.3 K/uL (0.0-0.7); EOS % 3.4 % (0.0-4.0); HEMOGLOBIN 8.3 g/dL (12.0-18.0); LYMPH % 12.7 % (20.0-40.0); MEAN CELL VOLUME 86.5 fL (80.0-94.0); MEAN CORPUSCULAR HEMOGLOBIN 27.8 pg (27.0-31.0); MEAN CORPUSCULAR HGB CONC 32.2 g/dL (33.0-37.0); MEAN PLATELET VOLUME 8.5 fL (7.2-11.7); MONO # 0.8 K/uL (0.0-0.8); MONO % 10.9 % (0.0-10.0); NEUT # 5.6 K/uL (1.8-7.0); NEUT % 72.1 % (50.0-75.0); NRBC % 0.1 % (0.0-2.0); RED CELL DISTRIBUTION WIDTH 20.4 % (11.5-14.5); WHITE BLOOD COUNT 7.7 K/uL (4.8-10.8)
[2019-02-24 09:15] LABS: INR 2.1; PROTHROMBIN TIME 23.5 SECONDS (9.7-12.2)
[2019-02-24 09:32] LABS: ALB/GLOB RATIO 1.2 (1.0-2.1); ALBUMIN 3.4 g/dL (3.5-5.0); ALT/SGPT 20 U/L (21-72); AST/SGOT 46 U/L (17-59); BLOOD UREA NITROGEN 21 mg/dL (9-20); CALCIUM 8.5 mg/dl (8.6-10.4); GFR NON-AFRICAN AMERICAN > 60
--- NOTE | 2019-02-24 12:16 | CP.PCM.PN ---
<No Velasquez-Shaina - Last Filed: 02/24/19 12:16> Subjective - Date & Time of Evaluation Date of Evaluation: 02/24/19 Time of Evaluation: 07:00 - Subjective Subjective: Surgery: Dr. Harvey Patient reports feeling very well today. Denies SOB, CP. States the swelling in the legs has improved. Tolerating reg diet. Objective - Vital Signs/Intake and Output Vital Signs (last 24 hours): Temp Pulse Resp BP Pulse Ox 98.1 F 100 H 20 98/60 L 96 02/24/19 08:14 02/24/19 08:14 02/24/19 08:14 02/24/19 11:48 02/24/19 08:14 Intake and Output: 02/24/19 02/24/19 06:59 18:59 Intake Total 420 Output Total 2 Balance 418 - Medications Medications: Current Medications Albuterol/Ipratropium (Duoneb 3 Mg/0.5 Mg (3 Ml) Ud) 3 ml INH RQ4 [facility] Last Admin: 02/24/19 11:43 Dose: 3 ml Docusate Sodium (Colace) 100 mg PO BID [facility] Last Admin: 02/24/19 10:20 Dose: 100 mg Furosemide (Lasix) 60 mg PO DAILY [facility] Last Admin: 02/22/19 10:59 Dose: Not Given Furosemide (Lasix) 40 mg IVP DAILY [facility] Last Admin: 02/24/19 11:48 Dose: 40 mg Guaifenesin/Dextromethorphan (Robitussin Dm) 10 ml PO Q4H PRN PRN Reason: Cough and congestion Lactulose (Enulose) 30 gm PO DAILY [facility] Last Admin: 02/24/19 10:18 Dose: 30 gm Mineral Oil (Mineral Oil 30ml) 30 ml PO DAILY [facility] Last Admin: 02/24/19 10:20 Dose: 30 ml Prednisone (Prednisone) 2.5 mg PO DAILY [facility] Last Admin: 02/24/19 10:21 Dose: 2.5 mg Spironolactone (Aldactone) 150 mg PO DAILY [facility] Last Admin: 02/24/19 10:20 Dose: 150 mg Tramadol HCl (Ultram) 50 mg PO Q6H PRN PRN Reason: Pain, moderate (4-7) Last Admin: 02/22/19 19:04 Dose: 50 mg Vitamin E (Vitamin E 400 Units Cap) 800 intlu PO DAILY [facility] Last Admin: 02/24/19 10:21 Dose: 800 intlu Warfarin Sodium (Coumadin) 5 mg PO 1800 [facility] Stop: 02/24/19 18:01 Zolpidem Tartrate (Ambien) 5 mg PO HS [facility] Last Admin: 02/23/19 21:19 Dose: 5 mg - Labs Labs: 02/24/19 08:55 02/24/19 08:55 PT 23.5 SECONDS (9.7-12.2) H 02/24/19 08:55 INR 2.1 D 02/24/19 08:55 APTT 39 SECONDS (21-34) H 02/24/19 08:55 - Constitutional Appears: Chronically Ill - Head Exam Head Exam: ATRAUMATIC, NORMOCEPHALIC - Eye Exam Eye Exam: EOMI, Normal appearance - ENT Exam ENT Exam: Mucous Membranes Moist - Respiratory Exam Respiratory Exam: absent: Respiratory Distress - Cardiovascular Exam Cardiovascular Exam: REGULAR RHYTHM - GI/Abdominal Exam GI & Abdominal Exam: Distended, Soft. absent: Tenderness Assessment and Plan - Assessment and Plan (Free Text) Assessment: 73 y/o male w/ liver failure s/p TIPS with CHF and pulm HTN Plan: -for RHC tomorrow, NPO past lunch - adjust coumadin dosing prn for thera INR - lactulose and rifoxamin - Diuretics for medical ascites management - OOB as tolerated - duonebs Q4h PRN - monitor i&O and daily weights further recs per Dr. Fernandez [facility] PGY4 <Haroldo Fernandez - Last Filed: 02/25/19 17:45> Objective - Vital Signs/Intake and Output Vital Signs (last 24 hours): Temp Pulse Resp BP Pulse Ox 97.7 F 68 20 101/64 96 02/25/19 15:47 02/25/19 15:47 02/25/19 15:47 02/25/19 15:47 02/25/19 15:47 Intake and Output: 02/25/19 02/25/19 06:59 18:59 Intake Total 300 500 Output Total 0 Balance 300 500 - Medications Medications: Current Medications Albuterol/Ipratropium (Duoneb 3 Mg/0.5 Mg (3 Ml) Ud) 3 ml INH RQ4 [facility] Last Admin: 02/25/19 13:29 Dose: 3 ml Docusate Sodium (Colace) 100 mg PO BID [facility] Last Admin: 02/25/19 09:54 Dose: 100 mg Furosemide (Lasix) 60 mg PO DAILY [facility] Last Admin: 02/22/19 10:59 Dose: Not Given Furosemide (Lasix) 40 mg IVP DAILY [facility] Last Admin: 02/25/19 09:54 Dose: 40 mg Lactulose (Enulose) 30 gm PO DAILY [facility] Last Admin: 02/25/19 09:55 Dose: 30 gm Mineral Oil (Mineral Oil 30ml) 30 ml PO DAILY [facility] Last Admin: 02/25/19 09:57 Dose: 30 ml Prednisone (Prednisone) 2.5 mg PO DAILY [facility] Last Admin: 02/25/19 09:57 Dose: 2.5 mg Spironolactone (Aldactone) 150 mg PO DAILY [facility] Last Admin: 02/25/19 09:56 Dose: 150 mg Tramadol HCl (Ultram) 50 mg PO Q6H PRN PRN Reason: Pain, moderate (4-7) Last Admin: 02/22/19 19:04 Dose: 50 mg Vitamin E (Vitamin E 400 Units Cap) 800 intlu PO DAILY [facility] Last Admin: 02/25/19 09:57 Dose: 800 intlu Warfarin Sodium (Coumadin) 5 mg PO 1800 [facility] Stop: 02/25/19 18:01 Zolpidem Tartrate (Ambien) 5 mg PO HS [facility] Last Admin: 02/24/19 21:31 Dose: 5 mg - Labs Labs: 02/24/19 08:55 02/24/19 08:55 PT 26.6 SECONDS (9.7-12.2) H 02/25/19 06:29 INR 2.4 02/25/19 06:29 APTT 39 SECONDS (21-34) H 02/24/19 08:55 Assessment and Plan - Assessment and Plan (Free Text) Plan: All medical record entries made by the resident were at my direction. I have reviewed the chart and agree that the record accurately reflects my personal performance of the history, physical exam, and medical decision making.
--- NOTE | 2019-02-24 22:49 | CP.PCM.PN ---
Subjective - Date & Time of Evaluation Date of Evaluation: 02/24/19 Time of Evaluation: 18:40 - Subjective Subjective: Patient for RHC tomorrow at 4pm NPO after light lunch after 12noon tomorrow Objective - Vital Signs/Intake and Output Vital Signs (last 24 hours): Temp Pulse Resp BP Pulse Ox 98 F 61 20 100/61 100 02/24/19 16:00 02/24/19 16:00 02/24/19 16:00 02/24/19 16:00 02/24/19 16:00 Intake and Output: 02/24/19 02/25/19 18:59 06:59 Intake Total 350 300 Balance 350 300 - Medications Medications: Current Medications Albuterol/Ipratropium (Duoneb 3 Mg/0.5 Mg (3 Ml) Ud) 3 ml INH RQ4 [facility] Last Admin: 02/24/19 19:32 Dose: 3 ml Docusate Sodium (Colace) 100 mg PO BID [facility] Last Admin: 02/24/19 17:42 Dose: 100 mg Furosemide (Lasix) 60 mg PO DAILY [facility] Last Admin: 02/22/19 10:59 Dose: Not Given Furosemide (Lasix) 40 mg IVP DAILY [facility] Last Admin: 02/24/19 11:48 Dose: 40 mg Guaifenesin/Dextromethorphan (Robitussin Dm) 10 ml PO Q4H PRN PRN Reason: Cough and congestion Lactulose (Enulose) 30 gm PO DAILY [facility] Last Admin: 02/24/19 10:18 Dose: 30 gm Mineral Oil (Mineral Oil 30ml) 30 ml PO DAILY [facility] Last Admin: 02/24/19 10:20 Dose: 30 ml Prednisone (Prednisone) 2.5 mg PO DAILY [facility] Last Admin: 02/24/19 10:21 Dose: 2.5 mg Spironolactone (Aldactone) 150 mg PO DAILY [facility] Last Admin: 02/24/19 10:20 Dose: 150 mg Tramadol HCl (Ultram) 50 mg PO Q6H PRN PRN Reason: Pain, moderate (4-7) Last Admin: 02/22/19 19:04 Dose: 50 mg Vitamin E (Vitamin E 400 Units Cap) 800 intlu PO DAILY [facility] Last Admin: 02/24/19 10:21 Dose: 800 intlu Zolpidem Tartrate (Ambien) 5 mg PO HS [facility] Last Admin: 02/24/19 21:31 Dose: 5 mg - Labs Labs: 02/24/19 08:55 02/24/19 08:55 PT 23.5 SECONDS (9.7-12.2) H 02/24/19 08:55 INR 2.1 D 02/24/19 08:55 APTT 39 SECONDS (21-34) H 02/24/19 08:55
[2019-02-25] MEDS: Albuterol-Ipratrop 3 mg / 0.5 (3 ml) UD INH SCH ×7 (00:18→23:57)
[2019-02-25 06:47] LABS: INR 2.4; PROTHROMBIN TIME 26.6 SECONDS (9.7-12.2)
--- NOTE | 2019-02-25 08:10 | CP.PCM.PN ---
<Toby Elena - Last Filed: 02/25/19 17:39> Subjective - Date & Time of Evaluation Date of Evaluation: 02/25/19 Time of Evaluation: 08:10 - Subjective Subjective: HPBS Progress Note- Dr. Harvey Patient seen and examined at bedside. No new complaints at this time. INR therapeutic. Cardio for Cardiac cath today. denies f/c/cp/n/v/d Objective - Vital Signs/Intake and Output Vital Signs (last 24 hours): Temp Pulse Resp BP Pulse Ox 98.2 F 70 20 119/75 100 02/25/19 00:00 02/25/19 00:00 02/25/19 00:00 02/25/19 00:00 02/25/19 00:00 Intake and Output: 02/25/19 02/25/19 06:59 18:59 Intake Total 300 Output Total 0 Balance 300 - Medications Medications: Current Medications Albuterol/Ipratropium (Duoneb 3 Mg/0.5 Mg (3 Ml) Ud) 3 ml INH RQ4 [facility] Last Admin: 02/25/19 07:30 Dose: 3 ml Docusate Sodium (Colace) 100 mg PO BID [facility] Last Admin: 02/24/19 17:42 Dose: 100 mg Furosemide (Lasix) 60 mg PO DAILY [facility] Last Admin: 02/22/19 10:59 Dose: Not Given Furosemide (Lasix) 40 mg IVP DAILY [facility] Last Admin: 02/24/19 11:48 Dose: 40 mg Guaifenesin/Dextromethorphan (Robitussin Dm) 10 ml PO Q4H PRN PRN Reason: Cough and congestion Lactulose (Enulose) 30 gm PO DAILY [facility] Last Admin: 02/24/19 10:18 Dose: 30 gm Mineral Oil (Mineral Oil 30ml) 30 ml PO DAILY [facility] Last Admin: 02/24/19 10:20 Dose: 30 ml Prednisone (Prednisone) 2.5 mg PO DAILY [facility] Last Admin: 02/24/19 10:21 Dose: 2.5 mg Spironolactone (Aldactone) 150 mg PO DAILY [facility] Last Admin: 02/24/19 10:20 Dose: 150 mg Tramadol HCl (Ultram) 50 mg PO Q6H PRN PRN Reason: Pain, moderate (4-7) Last Admin: 02/22/19 19:04 Dose: 50 mg Vitamin E (Vitamin E 400 Units Cap) 800 intlu PO DAILY [facility] Last Admin: 02/24/19 10:21 Dose: 800 intlu Warfarin Sodium (Coumadin) 5 mg PO 1800 [facility] Stop: 02/25/19 18:01 Zolpidem Tartrate (Ambien) 5 mg PO HS [facility] Last Admin: 02/24/19 21:31 Dose: 5 mg - Labs Labs: 02/24/19 08:55 02/24/19 08:55 PT 26.6 SECONDS (9.7-12.2) H 02/25/19 06:29 INR 2.4 02/25/19 06:29 APTT 39 SECONDS (21-34) H 02/24/19 08:55 - Constitutional Appears: No Acute Distress, Chronically Ill - Head Exam Head Exam: ATRAUMATIC - Eye Exam Eye Exam: EOMI, Scleral icterus - ENT Exam ENT Exam: Mucous Membranes Moist - Respiratory Exam Respiratory Exam: Wheezes, NORMAL BREATHING PATTERN. absent: Accessory Muscle Use, Respiratory Distress - Cardiovascular Exam Cardiovascular Exam: absent: Bradycardia, Tachycardia, REGULAR RHYTHM - GI/Abdominal Exam GI & Abdominal Exam: Soft. absent: Distended, Firm, Guarding, Rigid, Tenderness - Neurological Exam Neurological Exam: Alert, Awake, Oriented x3 - Psychiatric Exam Psychiatric exam: Normal Affect - Skin Skin Exam: Intact, Warm Assessment and Plan - Assessment and Plan (Free Text) Assessment: 73 y/o male w/ liver failure s/p TIPS with CHF and pulm HTN Plan: - Plan for cardiac cath w/ Cardio team - c/s Pulm; all recs appreciated - INR Therapetuic, continue Coumadin and dosing - lactulose and rifoxamin - Diuretics for medical ascites management - OOB as tolerated - duonebs Q4h PRN - monitor i&O and daily weights further recs per Dr. Jim Elena PGY2 <Haroldo Fernandez - Last Filed: 02/25/19 17:43> Objective - Vital Signs/Intake and Output Vital Signs (last 24 hours): Temp Pulse Resp BP Pulse Ox 97.7 F 68 20 101/64 96 02/25/19 15:47 02/25/19 15:47 02/25/19 15:47 02/25/19 15:47 02/25/19 15:47 Intake and Output: 02/25/19 02/25/19 06:59 18:59 Intake Total 300 500 Output Total 0 Balance 300 500 - Medications Medications: Current Medications Albuterol/Ipratropium (Duoneb 3 Mg/0.5 Mg (3 Ml) Ud) 3 ml INH RQ4 [facility] Last Admin: 02/25/19 13:29 Dose: 3 ml Docusate Sodium (Colace) 100 mg PO BID [facility] Last Admin: 02/25/19 09:54 Dose: 100 mg Furosemide (Lasix) 60 mg PO DAILY [facility] Last Admin: 02/22/19 10:59 Dose: Not Given Furosemide (Lasix) 40 mg IVP DAILY [facility] Last Admin: 02/25/19 09:54 Dose: 40 mg Lactulose (Enulose) 30 gm PO DAILY [facility] Last Admin: 02/25/19 09:55 Dose: 30 gm Mineral Oil (Mineral Oil 30ml) 30 ml PO DAILY [facility] Last Admin: 02/25/19 09:57 Dose: 30 ml Prednisone (Prednisone) 2.5 mg PO DAILY [facility] Last Admin: 02/25/19 09:57 Dose: 2.5 mg Spironolactone (Aldactone) 150 mg PO DAILY [facility] Last Admin: 02/25/19 09:56 Dose: 150 mg Tramadol HCl (Ultram) 50 mg PO Q6H PRN PRN Reason: Pain, moderate (4-7) Last Admin: 02/22/19 19:04 Dose: 50 mg Vitamin E (Vitamin E 400 Units Cap) 800 intlu PO DAILY [facility] Last Admin: 02/25/19 09:57 Dose: 800 intlu Warfarin Sodium (Coumadin) 5 mg PO 1800 [facility] Stop: 02/25/19 18:01 Zolpidem Tartrate (Ambien) 5 mg PO HS [facility] Last Admin: 02/24/19 21:31 Dose: 5 mg - Labs Labs: 02/24/19 08:55 02/24/19 08:55 PT 26.6 SECONDS (9.7-12.2) H 02/25/19 06:29 INR 2.4 02/25/19 06:29 APTT 39 SECONDS (21-34) H 02/24/19 08:55 Assessment and Plan - Assessment and Plan (Free Text) Plan: All medical record entries made by the resident were at my direction. I have reviewed the chart and agree that the record accurately reflects my personal performance of the history, physical exam, and medical decision making.
--- NOTE | 2019-02-25 08:15 | CP.PCM.PN ---
<Martha Sequeira - Last Filed: 02/25/19 10:57> Subjective - Date & Time of Evaluation Date of Evaluation: 02/25/19 Time of Evaluation: 08:13 - Subjective Subjective: Pulm Consult Note for Dr. Pritchett Patient seen and examined at bed side. Patient is afebrile and states shortness of breath and cough have improved. Paracentesis completed last week. 4 L drained Status post TIPS procedure Right heart cath to be completed this afternoon. Patient with portal pulmonary hypertension and will benefit from endothelin receptor inhibitor but will need vasoreactivity testing. Consider transferring to pulmonary hypertension clinic at [facility] for further workup. Denies cough, nausea, vomiting, or diarrhea. ROS: all over systems reviewed and negative Objective - Vital Signs/Intake and Output Vital Signs (last 24 hours): Temp Pulse Resp BP Pulse Ox 98.2 F 70 20 119/75 100 02/25/19 00:00 02/25/19 00:00 02/25/19 00:00 02/25/19 00:00 02/25/19 00:00 Intake and Output: 02/25/19 02/25/19 06:59 18:59 Intake Total 300 Output Total 0 Balance 300 - Medications Medications: Current Medications Albuterol/Ipratropium (Duoneb 3 Mg/0.5 Mg (3 Ml) Ud) 3 ml INH RQ4 [facility] Last Admin: 02/25/19 07:30 Dose: 3 ml Docusate Sodium (Colace) 100 mg PO BID [facility] Last Admin: 02/24/19 17:42 Dose: 100 mg Furosemide (Lasix) 60 mg PO DAILY [facility] Last Admin: 02/22/19 10:59 Dose: Not Given Furosemide (Lasix) 40 mg IVP DAILY [facility] Last Admin: 02/24/19 11:48 Dose: 40 mg Guaifenesin/Dextromethorphan (Robitussin Dm) 10 ml PO Q4H PRN PRN Reason: Cough and congestion Lactulose (Enulose) 30 gm PO DAILY [facility] Last Admin: 02/24/19 10:18 Dose: 30 gm Mineral Oil (Mineral Oil 30ml) 30 ml PO DAILY [facility] Last Admin: 02/24/19 10:20 Dose: 30 ml Prednisone (Prednisone) 2.5 mg PO DAILY [facility] Last Admin: 02/24/19 10:21 Dose: 2.5 mg Spironolactone (Aldactone) 150 mg PO DAILY [facility] Last Admin: 02/24/19 10:20 Dose: 150 mg Tramadol HCl (Ultram) 50 mg PO Q6H PRN PRN Reason: Pain, moderate (4-7) Last Admin: 02/22/19 19:04 Dose: 50 mg Vitamin E (Vitamin E 400 Units Cap) 800 intlu PO DAILY [facility] Last Admin: 02/24/19 10:21 Dose: 800 intlu Warfarin Sodium (Coumadin) 5 mg PO 1800 [facility] Stop: 02/25/19 18:01 Zolpidem Tartrate (Ambien) 5 mg PO HS [facility] Last Admin: 02/24/19 21:31 Dose: 5 mg - Labs Labs: 02/24/19 08:55 02/24/19 08:55 PT 26.6 SECONDS (9.7-12.2) H 02/25/19 06:29 INR 2.4 02/25/19 06:29 APTT 39 SECONDS (21-34) H 02/24/19 08:55 - Constitutional Appears: Well, Non-toxic - Head Exam Head Exam: ATRAUMATIC, NORMOCEPHALIC - Eye Exam Eye Exam: Normal appearance - ENT Exam ENT Exam: Mucous Membranes Moist - Respiratory Exam Respiratory Exam: Decreased Breath Sounds, Rales. absent: Wheezes, Respiratory Distress - Cardiovascular Exam Cardiovascular Exam: REGULAR RHYTHM, JVD, +S1, +S2 - GI/Abdominal Exam GI & Abdominal Exam: Distended, Firm, Normal Bowel Sounds - Extremities Exam Extremities Exam: Pedal Edema (2+) Assessment and Plan - Assessment and Plan (Free Text) Assessment: 73 year old male with PMH of HTN COPD, GERD, CAD, Cardiomyopathy, Afib, CABG, AICD, EtOH liver cirrhosis s/p TIPS procedure. Plan: 1. Cirrhosis w/portal HTN s/p TIPS Paracentesis done 02/21/19 drained 4 L lasix aldactone Consider transfering to pulm HTN clinic at [facility] for futher workup 2. Hospital acquired PNA d/c'd IV antibiotics as per primary team. Patient afebrile, no leukocytosis 3. COPD with Pulm HTN. Continue current therapy of duonebs 4. DVT continue coumadin as per primary team. <Carson Pritchett S - Last Filed: 02/25/19 17:35> Objective - Vital Signs/Intake and Output Vital Signs (last 24 hours): Temp Pulse Resp BP Pulse Ox 97.7 F 68 20 101/64 96 02/25/19 15:47 02/25/19 15:47 02/25/19 15:47 02/25/19 15:47 02/25/19 15:47 Intake and Output: 02/25/19 02/25/19 06:59 18:59 Intake Total 300 500 Output Total 0 Balance 300 500 - Medications Medications: Current Medications Albuterol/Ipratropium (Duoneb 3 Mg/0.5 Mg (3 Ml) Ud) 3 ml INH RQ4 [facility] Last Admin: 02/25/19 13:29 Dose: 3 ml Docusate Sodium (Colace) 100 mg PO BID [facility] Last Admin: 02/25/19 09:54 Dose: 100 mg Furosemide (Lasix) 60 mg PO DAILY [facility] Last Admin: 02/22/19 10:59 Dose: Not Given Furosemide (Lasix) 40 mg IVP DAILY [facility] Last Admin: 02/25/19 09:54 Dose: 40 mg Lactulose (Enulose) 30 gm PO DAILY [facility] Last Admin: 02/25/19 09:55 Dose: 30 gm Mineral Oil (Mineral Oil 30ml) 30 ml PO DAILY [facility] Last Admin: 02/25/19 09:57 Dose: 30 ml Prednisone (Prednisone) 2.5 mg PO DAILY [facility] Last Admin: 02/25/19 09:57 Dose: 2.5 mg Spironolactone (Aldactone) 150 mg PO DAILY [facility] Last Admin: 02/25/19 09:56 Dose: 150 mg Tramadol HCl (Ultram) 50 mg PO Q6H PRN PRN Reason: Pain, moderate (4-7) Last Admin: 02/22/19 19:04 Dose: 50 mg Vitamin E (Vitamin E 400 Units Cap) 800 intlu PO DAILY [facility] Last Admin: 02/25/19 09:57 Dose: 800 intlu Warfarin Sodium (Coumadin) 5 mg PO 1800 [facility] Stop: 02/25/19 18:01 Zolpidem Tartrate (Ambien) 5 mg PO HS [facility] Last Admin: 02/24/19 21:31 Dose: 5 mg - Labs Labs: 02/24/19 08:55 02/24/19 08:55 PT 26.6 SECONDS (9.7-12.2) H 02/25/19 06:29 INR 2.4 02/25/19 06:29 APTT 39 SECONDS (21-34) H 02/24/19 08:55 Assessment and Plan (1) Pulmonary arterial hypertension associated with portal hypertension Status: Acute Attending/Attestation - Attestation I have personally seen and examined this patient.: Yes I have fully participated in the care of the patient.: Yes I have reviewed all pertinent clinical information, including history, physical exam and plan: Yes Notes (Text): 02/25/19 17:34 Right heart cath scheduled but later got canceled as patient will need vasoreactivity testing and should be transferred to [facility] Continue present treatment for now
--- NOTE | 2019-02-25 20:50 | CP.PCM.PN ---
Subjective - Date & Time of Evaluation Date of Evaluation: 02/25/19 Time of Evaluation: 20:49 - Subjective Subjective: patient's RHC ancelled due to high INR of 2.4 Reschedule once INR below <1.8 Thanks Objective - Vital Signs/Intake and Output Vital Signs (last 24 hours): Temp Pulse Resp BP Pulse Ox 97.7 F 68 20 110/62 96 02/25/19 15:47 02/25/19 15:47 02/25/19 15:47 02/25/19 18:53 02/25/19 15:47 Intake and Output: 02/25/19 02/26/19 18:59 06:59 Intake Total 500 Balance 500 - Medications Medications: Current Medications Albuterol/Ipratropium (Duoneb 3 Mg/0.5 Mg (3 Ml) Ud) 3 ml INH RQ4 [facility] Last Admin: 02/25/19 19:19 Dose: 3 ml Docusate Sodium (Colace) 100 mg PO BID [facility] Last Admin: 02/25/19 17:45 Dose: 100 mg Furosemide (Lasix) 60 mg PO DAILY [facility] Last Admin: 02/22/19 10:59 Dose: Not Given Furosemide (Lasix) 40 mg IVP DAILY [facility] Last Admin: 02/25/19 09:54 Dose: 40 mg Lactulose (Enulose) 30 gm PO DAILY [facility] Last Admin: 02/25/19 09:55 Dose: 30 gm Mineral Oil (Mineral Oil 30ml) 30 ml PO DAILY [facility] Last Admin: 02/25/19 09:57 Dose: 30 ml Prednisone (Prednisone) 2.5 mg PO DAILY [facility] Last Admin: 02/25/19 09:57 Dose: 2.5 mg Spironolactone (Aldactone) 150 mg PO DAILY [facility] Last Admin: 02/25/19 09:56 Dose: 150 mg Tramadol HCl (Ultram) 50 mg PO Q6H PRN PRN Reason: Pain, moderate (4-7) Last Admin: 02/25/19 20:19 Dose: 50 mg Vitamin E (Vitamin E 400 Units Cap) 800 intlu PO DAILY [facility] Last Admin: 02/25/19 09:57 Dose: 800 intlu Zolpidem Tartrate (Ambien) 5 mg PO HS [facility] Last Admin: 02/24/19 21:31 Dose: 5 mg - Labs Labs: 02/24/19 08:55 02/24/19 08:55 PT 26.6 SECONDS (9.7-12.2) H 02/25/19 06:29 INR 2.4 02/25/19 06:29 APTT 39 SECONDS (21-34) H 02/24/19 08:55
[2019-02-26] MEDS: Albuterol-Ipratrop 3 mg / 0.5 (3 ml) UD INH SCH ×5 (03:18→23:46)
[2019-02-26 07:03] LABS: BASO # 0.1 K/uL (0.0-0.2); BASO % 1.2 % (0.0-2.0); EOS # 0.3 K/uL (0.0-0.7); EOS % 4.6 % (0.0-4.0); HEMOGLOBIN 8.1 g/dL (12.0-18.0); LYMPH % 16.3 % (20.0-40.0); MEAN CELL VOLUME 86.3 fL (80.0-94.0); MEAN CORPUSCULAR HEMOGLOBIN 28.2 pg (27.0-31.0); MEAN CORPUSCULAR HGB CONC 32.7 g/dL (33.0-37.0); MEAN PLATELET VOLUME 8.3 fL (7.2-11.7); MONO # 0.7 K/uL (0.0-0.8); NEUT # 4.2 K/uL (1.8-7.0); NEUT % 66.9 % (50.0-75.0); NRBC % 0.1 % (0.0-2.0); RBC 2.87 Mil/uL (4.40-5.90); RED CELL DISTRIBUTION WIDTH 20.5 % (11.5-14.5); WHITE BLOOD COUNT 6.2 K/uL (4.8-10.8)
[2019-02-26 07:09] LABS: INR 2.1; PROTHROMBIN TIME 23.5 SECONDS (9.7-12.2)
[2019-02-26 07:34] LABS: ALB/GLOB RATIO 1.1 (1.0-2.1); ALBUMIN 3.2 g/dL (3.5-5.0); ALT/SGPT 28 U/L (21-72); AST/SGOT 40 U/L (17-59); BLOOD UREA NITROGEN 22 mg/dL (9-20); CALCIUM 8.2 mg/dl (8.6-10.4); GFR NON-AFRICAN AMERICAN > 60
--- NOTE | 2019-02-26 07:40 | CP.PCM.PN ---
<Jewels Velasquez - Last Filed: 02/26/19 07:40> Subjective - Date & Time of Evaluation Date of Evaluation: 02/26/19 Time of Evaluation: 07:38 - Subjective Subjective: Surgery: Dr. Harvey Patient doing well this am. heart cath cancelled due to patient need of vasoreactivity testing not performed her. D/w Dr. Pritchett who states patient is stable for d/c and can f/u at [facility] for specialized testing. No acute events overnight. Objective - Vital Signs/Intake and Output Vital Signs (last 24 hours): Temp Pulse Resp BP Pulse Ox 97.9 F 61 20 121/70 100 02/26/19 00:00 02/26/19 00:00 02/26/19 00:00 02/26/19 00:00 02/26/19 00:00 Intake and Output: 02/26/19 02/26/19 06:59 18:59 Intake Total 240 Balance 240 - Medications Medications: Current Medications Albuterol/Ipratropium (Duoneb 3 Mg/0.5 Mg (3 Ml) Ud) 3 ml INH RQ4 [facility] Last Admin: 02/26/19 07:35 Dose: 3 ml Docusate Sodium (Colace) 100 mg PO BID [facility] Last Admin: 02/25/19 17:45 Dose: 100 mg Furosemide (Lasix) 60 mg PO DAILY [facility] Last Admin: 02/22/19 10:59 Dose: Not Given Furosemide (Lasix) 40 mg IVP DAILY [facility] Last Admin: 02/25/19 09:54 Dose: 40 mg Lactulose (Enulose) 30 gm PO DAILY [facility] Last Admin: 02/25/19 09:55 Dose: 30 gm Mineral Oil (Mineral Oil 30ml) 30 ml PO DAILY [facility] Last Admin: 02/25/19 09:57 Dose: 30 ml Prednisone (Prednisone) 2.5 mg PO DAILY [facility] Last Admin: 02/25/19 09:57 Dose: 2.5 mg Spironolactone (Aldactone) 150 mg PO DAILY [facility] Last Admin: 02/25/19 09:56 Dose: 150 mg Tramadol HCl (Ultram) 50 mg PO Q6H PRN PRN Reason: Pain, moderate (4-7) Last Admin: 02/25/19 20:19 Dose: 50 mg Vitamin E (Vitamin E 400 Units Cap) 800 intlu PO DAILY [facility] Last Admin: 02/25/19 09:57 Dose: 800 intlu Zolpidem Tartrate (Ambien) 5 mg PO HS [facility] Last Admin: 02/25/19 22:21 Dose: 5 mg - Labs Labs: 02/26/19 06:46 02/26/19 06:46 PT 23.5 SECONDS (9.7-12.2) H 02/26/19 06:46 INR 2.1 02/26/19 06:46 APTT 39 SECONDS (21-34) H 02/24/19 08:55 - Constitutional Appears: Chronically Ill - Head Exam Head Exam: ATRAUMATIC, NORMOCEPHALIC - Eye Exam Eye Exam: EOMI, Normal appearance - ENT Exam ENT Exam: Mucous Membranes Moist - Respiratory Exam Respiratory Exam: NORMAL BREATHING PATTERN - Cardiovascular Exam Cardiovascular Exam: REGULAR RHYTHM. absent: Tachycardia - GI/Abdominal Exam GI & Abdominal Exam: Distended, Soft Assessment and Plan - Assessment and Plan (Free Text) Assessment: 73 y/o male w/ liver failure s/p TIPS with CHF and pulm HTN Plan: - RHC cancelled due to need for vasoreactivity test which is not performed here - Per pulm Dr. Pritchett, can f/u as outpatient for special testing - INR Therapetuic, continue Coumadin and dosing - lactulose and rifoxamin - Diuretics for medical ascites management - OOB as tolerated - duonebs Q4h PRN - monitor i&O and daily weights - d/c planning further recs per Dr. Fernandez [facility] PGY4 <Haroldo Fernandez - Last Filed: 02/28/19 08:23> Objective - Vital Signs/Intake and Output Vital Signs (last 24 hours): Temp Pulse Resp BP Pulse Ox 98.2 F 62 20 102/60 99 02/26/19 15:30 02/26/19 15:30 02/26/19 15:30 02/26/19 15:30 02/26/19 15:30 - Labs Labs: 02/26/19 06:46 02/26/19 06:46 PT 23.5 SECONDS (9.7-12.2) H 02/26/19 06:46 INR 2.1 02/26/19 06:46 APTT 39 SECONDS (21-34) H 02/24/19 08:55 Assessment and Plan - Assessment and Plan (Free Text) Plan: All medical record entries made by the resident were at my direction. I have reviewed the chart and agree that the record accurately reflects my personal performance of the history, physical exam, and medical decision making.
--- NOTE | 2019-02-26 09:14 | CP.PCM.PN ---
Subjective - Date & Time of Evaluation Date of Evaluation: 02/26/19 Time of Evaluation: 09:14 - Subjective Subjective: Pulm Consult Note for Dr. Pritchett Patient seen and examined at bed side. Patient is afebrile and states shortness of breath and cough have improved. RH cath and vasoreactivity test to be done at [facility]. Patient is stable for discharge and to follow up as outpatient. Denies cough, nausea, vomiting, or diarrhea. ROS: all over systems reviewed and negative Objective - Vital Signs/Intake and Output Vital Signs (last 24 hours): Temp Pulse Resp BP Pulse Ox 97.8 F 73 20 100/54 L 95 02/26/19 07:00 02/26/19 07:00 02/26/19 07:00 02/26/19 07:00 02/26/19 07:00 Intake and Output: 02/26/19 02/26/19 06:59 18:59 Intake Total 240 Balance 240 - Medications Medications: Current Medications Albuterol/Ipratropium (Duoneb 3 Mg/0.5 Mg (3 Ml) Ud) 3 ml INH RQ4 [facility] Last Admin: 02/26/19 07:35 Dose: 3 ml Docusate Sodium (Colace) 100 mg PO BID [facility] Last Admin: 02/25/19 17:45 Dose: 100 mg Furosemide (Lasix) 60 mg PO DAILY [facility] Last Admin: 02/22/19 10:59 Dose: Not Given Furosemide (Lasix) 40 mg IVP DAILY [facility] Last Admin: 02/25/19 09:54 Dose: 40 mg Lactulose (Enulose) 30 gm PO DAILY [facility] Last Admin: 02/25/19 09:55 Dose: 30 gm Mineral Oil (Mineral Oil 30ml) 30 ml PO DAILY [facility] Last Admin: 02/25/19 09:57 Dose: 30 ml Prednisone (Prednisone) 2.5 mg PO DAILY [facility] Last Admin: 02/25/19 09:57 Dose: 2.5 mg Spironolactone (Aldactone) 150 mg PO DAILY [facility] Last Admin: 02/25/19 09:56 Dose: 150 mg Tramadol HCl (Ultram) 50 mg PO Q6H PRN PRN Reason: Pain, moderate (4-7) Last Admin: 02/25/19 20:19 Dose: 50 mg Vitamin E (Vitamin E 400 Units Cap) 800 intlu PO DAILY [facility] Last Admin: 02/25/19 09:57 Dose: 800 intlu Warfarin Sodium (Coumadin) 5 mg PO 1800 [facility] Stop: 02/26/19 18:01 Zolpidem Tartrate (Ambien) 5 mg PO HS [facility] Last Admin: 02/25/19 22:21 Dose: 5 mg - Labs Labs: 02/26/19 06:46 02/26/19 06:46 PT 23.5 SECONDS (9.7-12.2) H 02/26/19 06:46 INR 2.1 02/26/19 06:46 APTT 39 SECONDS (21-34) H 02/24/19 08:55 - Constitutional Appears: Well, Non-toxic - Head Exam Head Exam: ATRAUMATIC, NORMOCEPHALIC - Eye Exam Eye Exam: Normal appearance - ENT Exam ENT Exam: Mucous Membranes Moist - Respiratory Exam Respiratory Exam: Rales (bilaterally), NORMAL BREATHING PATTERN. absent: Clear to Ausculation Bilateral - Cardiovascular Exam Cardiovascular Exam: REGULAR RHYTHM, JVD, +S1, +S2 - GI/Abdominal Exam GI & Abdominal Exam: Distended, Firm, Normal Bowel Sounds - Extremities Exam Extremities Exam: Pedal Edema (2+), Tenderness - Skin Skin Exam: Dry, Warm Assessment and Plan - Assessment and Plan (Free Text) Assessment: 73 year old male with PMH of HTN COPD, GERD, CAD, Cardiomyopathy, Afib, CABG, AICD, EtOH liver cirrhosis s/p TIPS procedure. Plan: 1. Cirrhosis w/portal HTN s/p TIPS Paracentesis done 02/21/19 drained 4 L lasix aldactone Vasoreactivity to be done clinic at [facility] for further workup 2. Hospital acquired PNA d/c'd IV antibiotics as per primary team. Patient afebrile, no leukocytosis 3. COPD with Pulm HTN. Continue current therapy of duonebs 4. DVT continue coumadin as per primary team.
[2019-02-26 10:24] VITALS: BP 102/60
[2019-02-26] MEDS ORDERED: Albuterol-Ipratrop 3 mg / 0.5 (3 ml) UD INH STA (14:56)
[2019-02-26 16:19] VITALS: PULSE 62; TEMP 98.2; O2SAT 99
[2019-02-27] MEDS ORDERED: Heparin25000 units/250ml 1/2NS 25,000 UNITS/250 ML BAG IV PRN (10:00)
--- NOTE | 2019-03-04 11:30 | CP.PCM.DIS ---
Provider - Provider Date of Admission: 02/02/19 01:32 Attending physician: Haroldo Fernandez MD Consults: 02/04/19 14:46 Pulmonology Consult Routine Comment: Consulting Provider: Carson Pritchett Consulting Physician: Carson Pritchett Reason for Consult: pul. HTN 02/22/19 17:11 Cardiology Consult Routine Comment: Consulting Provider: Nolan Masterson Consulting Physician: Nolan Masterson Reason for Consult: Right heart failure, pulm htn Time Spent in preparation of Discharge (in minutes): 45 Hospital Course - Lab Results Lab Results: Micro Results 02/13/19 17:00 Naris MRSA Culture - Final MRSA NOT DETECTED 02/10/19 14:38 Abdominal Fluid Gram Stain - Final 02/10/19 14:38 Abdominal Fluid Body Fluid Culture - Final NO GROWTH AFTER 4 DAYS Most Recent Lab Values WBC 6.2 K/uL (4.8-10.8) 02/26/19 06:46 RBC 2.87 Mil/uL (4.40-5.90) L 02/26/19 06:46 Hgb 8.1 g/dL (12.0-18.0) L 02/26/19 06:46 Hct 24.8 % (35.0-51.0) L 02/26/19 06:46 MCV 86.3 fL (80.0-94.0) 02/26/19 06:46 MCH 28.2 pg (27.0-31.0) 02/26/19 06:46 MCHC 32.7 g/dL (33.0-37.0) L 02/26/19 06:46 RDW 20.5 % (11.5-14.5) H 02/26/19 06:46 Plt Count 244 K/uL (130-400) 02/26/19 06:46 MPV 8.3 fL (7.2-11.7) 02/26/19 06:46 Neut % (Auto) 66.9 % (50.0-75.0) 02/26/19 06:46 Lymph % (Auto) 16.3 % (20.0-40.0) L 02/26/19 06:46 [place] % (Auto) 11.0 % (0.0-10.0) H 02/26/19 06:46 Eos % (Auto) 4.6 % (0.0-4.0) H 02/26/19 06:46 Baso % (Auto) 1.2 % (0.0-2.0) 02/26/19 06:46 Neut # (Auto) 4.2 K/uL (1.8-7.0) 02/26/19 06:46 Lymph # (Auto) 1.0 K/uL (1.0-4.3) 02/26/19 06:46 [place] # (Auto) 0.7 K/uL (0.0-0.8) 02/26/19 06:46 Eos # (Auto) 0.3 K/uL (0.0-0.7) 02/26/19 06:46 Baso # (Auto) 0.1 K/uL (0.0-0.2) 02/26/19 06:46 Neutrophils % (Manual) 82 % (50-75) H 02/14/19 06:10 Band Neutrophils % 2 % (0-2) 02/13/19 05:47 Lymphocytes % (Manual) 6 % (20-40) L 02/14/19 06:10 Monocytes % (Manual) 10 % (0-10) 02/14/19 06:10 Eosinophils % (Manual) 2 % (0-4) 02/14/19 06:10 Platelet Estimate Normal (NORMAL) 02/14/19 06:10 Polychromasia Slight 02/14/19 06:10 Hypochromasia (manual) Slight 02/14/19 06:10 Anisocytosis (manual) Slight 02/14/19 06:10 Ovalocytes Slight 02/12/19 06:00 PT 23.5 SECONDS (9.7-12.2) H 02/26/19 06:46 INR 2.1 02/26/19 06:46 APTT 39 SECONDS (21-34) H 02/24/19 08:55 Sodium 130 mmol/L (132-148) L 02/26/19 06:46 Potassium 4.3 mmol/L (3.6-5.2) 02/26/19 06:46 Chloride 87 mmol/L (98-107) L 02/26/19 06:46 Carbon Dioxide 39 mmol/L (22-30) H 02/26/19 06:46 Anion Gap 9 (10-20) L 02/26/19 06:46 BUN 22 mg/dL (9-20) H 02/26/19 06:46 Creatinine 1.0 mg/dL (0.8-1.5) 02/26/19 06:46 Est GFR ( Amer) > 60 02/26/19 06:46 Est GFR (Non-Af Amer) > 60 02/26/19 06:46 POC Glucose (mg/dL) 90 mg/dL (65-110) 02/26/19 21:01 Random Glucose 74 mg/dL (75-110) L 02/26/19 06:46 Calcium 8.2 mg/dl (8.6-10.4) L 02/26/19 06:46 Phosphorus 2.9 mg/dL (2.5-4.5) 02/26/19 06:46 Magnesium 2.2 mg/dL (1.6-2.3) 02/26/19 06:46 Iron 29 ug/dL (49-181) L 02/12/19 05:55 TIBC 255 ug/dL (250-450) 02/12/19 05:55 % Saturation 11 (20-55) L 02/12/19 05:55 Total Bilirubin 0.3 mg/dL (0.2-1.3) 02/26/19 06:46 AST 40 U/L (17-59) 02/26/19 06:46 ALT 28 U/L (21-72) 02/26/19 06:46 Alkaline Phosphatase 112 U/L (38-126) 02/26/19 06:46 Ammonia 11 umol/L (9-33) D 02/13/19 05:47 Total Protein 6.1 g/dL (6.3-8.3) L 02/26/19 06:46 Albumin 3.2 g/dL (3.5-5.0) L 02/26/19 06:46 Globulin 2.9 gm/dL (2.2-3.9) 02/26/19 06:46 Albumin/Globulin Ratio 1.1 (1.0-2.1) 02/26/19 06:46 Vitamin B12 617 pg/mL (239-931) 02/12/19 05:55 Folate 10.0 ng/mL 02/12/19 05:55 Procalcitonin 0.08 NG/ML (0.19-0.49) L 02/20/19 14:17 TSH 3rd Generation 51.20 mIU/L (0.46-4.68) H 02/12/19 05:55 Prolactin 22.4 ng/mL (3.7-17.9) H 02/18/19 06:44 Fluid Source Peritoneal/ascites 02/10/19 14:38 Fluid Appearance Cloudy (CLEAR) 02/10/19 14:38 Fluid WBC 181.0 /mm3 (0.0-300.0) 02/10/19 14:38 Fluid RBC 2369.0 /mm3 (0.0-0.0) H 02/10/19 14:38 Fluid Tot Cell Count 100 (0-0) H 02/10/19 14:38 Fluid Neutrophils 63.0 % (0-0) H 02/10/19 14:38 Fluid Lymphocytes 8.0 % (0-0) H 02/10/19 14:38 Fld Monocyte/Macrophag 29 % (0-0) H 02/10/19 14:38 Fluid Comment 02/10/19 14:38 Blood Type A POSITIVE 02/07/19 08:24 Antibody Screen Negative 02/07/19 08:24 - Hospital Course Hospital Course: pt is a 73 yr old male with PMH HTN, HL, COPD, GERD, CAD, Cardiomyopathy, Chronic AFib on Coumadin, CABG, AICD/PM, Alcoholic Liver Cirrhosis who was transferred from [facility] for evaluation by Hepatobiliary surgeon for possible portosystemic shunt. Pt underwent several Paracentesis procedures during this stay to relieve abdominal ascites. Upon Cardiology and pulmonology consultation and evaluation it was determined that the best possible option for the patient given his comorbidities would be a TIPS procedure performed by an interventional radiologist. Pt was transferred to [facility] and underwent procedure with Dr. Shailesh Carias. Pt returned to [facility] to ICU and was downgraded shortly afterwards with appropriate improvement and verification of shunt patency with US. Pt was on a heparin drip during this time to prevent thrombosis of the shunt. POD 4 the patient was found to have sw elling of his right LE and US revealed DVT. CT chest did not reveal any PE. Patient was restarted on heparin drip. DVT was appropriately treated with anticoagulation and patient was transitioned to warfarin. Patient had continued cardiac workup including echo prior to discharge. At this time it was determined that the patient would need vasoreactivity testing in addition to standard cardiac catheterization. As services were not available at this hospital the patient was transferred to [facility] for further testing. Prior to discharge INR was therapeutic and patient was deemed stable for transfer. - Date & Time of H&P Date of H&P: 02/26/19 Time of H&P: 23:00 Discharge Exam - Head Exam Head Exam: ATRAUMATIC, NORMOCEPHALIC - Eye Exam Eye Exam: EOMI - Respiratory Exam Respiratory Exam: NORMAL BREATHING PATTERN - Cardiovascular Exam Cardiovascular Exam: REGULAR RHYTHM - GI/Abdominal Exam GI & Abdominal Exam: Distended (mild, improved), Soft. absent: Guarding, Tenderness - Extremities Exam Additional comments: pedal edema markedly improved with minimal residual edema, no calf tenderness, pt able to ambulate without difficulty - Neurological Exam Neurological exam: Alert, Normal Gait, Oriented x3 - Psychiatric Exam Psychiatric exam: Normal Affect, Normal Mood - Skin Skin Exam: Dry, Intact, Normal Color, Warm Discharge Plan - Discharge Medications Prescriptions: Spironolactone [Aldactone] 50 mg PO QD7 #30 tab - Follow Up Plan Condition: GOOD Disposition: Trans to Other Acute Care Hosp
== END 2019-02-27 00:40 | disposition short-term general hospital (02) | DRG 406 ==
LOC: C.6T 01:32 → C.9I 02-11 20:04 → C.3T 02-13 15:30
PROVIDERS: ADMIT Surgery; ATTEND Surgery
PROC: 0W9G3ZX Drainage of Peritoneal Cavity, Percutaneous Approach, Diagnostic (ICD-10-PCS; principal; 2019-02-05)
PROC: 4A023N6 Measurement of Cardiac Sampling and Pressure, Right Heart, Percutaneous Approach (ICD-10-PCS; 2019-02-06)
PROC: B2111ZZ Fluoroscopy of Multiple Coronary Arteries using Low Osmolar Contrast (ICD-10-PCS; 2019-02-06)
PROC: B2141ZZ Fluoroscopy of Right Heart using Low Osmolar Contrast (ICD-10-PCS; 2019-02-06)
PROC: 0W9G3ZX Drainage of Peritoneal Cavity, Percutaneous Approach, Diagnostic (ICD-10-PCS; 2019-02-10)
PROC: 06183J4 Bypass Portal Vein to Hepatic Vein with Synthetic Substitute, Percutaneous Approach (ICD-10-PCS; 2019-02-11)
PROC: 0W9G3ZX Drainage of Peritoneal Cavity, Percutaneous Approach, Diagnostic (ICD-10-PCS; 2019-02-21)
DX: K70.31 Alcoholic cirrhosis of liver with ascites (principal); I42.9 Cardiomyopathy, unspecified; K76.6 Portal hypertension; I27.20 Pulmonary hypertension, unspecified; I48.2 Chronic atrial fibrillation; J44.9 Chronic obstructive pulmonary disease, unspecified; I25.10 Atherosclerotic heart disease of native coronary artery without angina pectoris; K21.9 Gastro-esophageal reflux disease without esophagitis; Z95.1 Presence of aortocoronary bypass graft; E03.9 Hypothyroidism, unspecified; D64.9 Anemia, unspecified; Z95.2 Presence of prosthetic heart valve; I05.9 Rheumatic mitral valve disease, unspecified